=== PATIENT | male | born 1955 | race Caucasian/White ===

== ENCOUNTER 2020-10-07 13:25 | Day surgery (SDC) | payer OTHER, SELFPAY ==
[2020-10-07] MEDS ORDERED: AMLODIPINE BESY10 MG PO (15:12)
[2020-10-07] MEDS ORDERED: BETA.05TO TOP (15:12)
[2020-10-07] MEDS ORDERED: LISI20 PO (15:13)
[2020-10-07] MEDS ORDERED: PANTOPRAZOLE SO40 M2 PO (15:13)
[2020-10-07] MEDS ORDERED: FUROSEMIDE20 MG PO (15:13)
[2020-10-07] MEDS ORDERED: FOLI1 PO (15:23)
[2020-10-07] MEDS ORDERED: CYAN500 PO (15:27)
[2020-10-07] MEDS ORDERED: C COMPLEX1000 M1 PO (15:27)
[2020-10-07] MEDS ORDERED: METF500C PO (15:28)
[2020-10-07] MEDS ORDERED: ALLEGRA ALLERG180 MG PO (15:28)
[2020-10-07] MEDS ORDERED: MULTI-VITAMIN1 EAC2 PO (15:28)
--- NOTE | 2020-10-07 17:09 | NUR ---
PT ASKING WHEN HE NEEDS HIS BLOOD REDRAWN AND WHEN HE NEEDS A FOLLOW UP VISIT WITH Jessy CHRISTINE NP. SPOKE WITH STAFF AT Jessy CHRISTINE OFFICE. PT WILL HAVE HIS BLOOD REDRAWN ON Saturday10/10/20 AND WILL SEE Jessy CHRISTINE NP ON THURSDAY 10/12 AT 1000. STAFF AT YESY'S OFFICE WILL SEND LAB REQUISITION INTO THE LAB FOR PT. UPDATED PT AND HIS WITH LAB DRAWN AND FOLLOW UP APPOINTMENT DATES AND TIME.
[2020-10-25] MEDS ORDERED: Vitamin B-150 MG PO (15:01)
== END 2020-10-07 17:20 | disposition home or self-care (01) ==
LOC: ATC 13:25
DX: D69.49 Other primary thrombocytopenia (principal); I10 Essential (primary) hypertension; K21.9 Gastro-esophageal reflux disease without esophagitis; Z87.891 Personal history of nicotine dependence
CPT/HCPCS: 36430; 86900; 86901; J7050; P9035

== ENCOUNTER 2020-10-28 06:01 | Day surgery (SDC) | payer OTHER, SELFPAY ==
[2020-10-27 11:04] LABS: Hematocrit 40.4 % (37.0-53.0); Hemoglobin 12.2 g/dL (13.5-17.5); Mean Corpuscular HGB 23.5 pg (26.0-34.0); Mean Corpuscular HGB Conc 30.2 g/dL (31.5-36.5); Mean Corpuscular Volume 78 fL (80-100); RDW Coefficient Variation 24.4 % (11.7-14.2); RDW Standard Deviation 66.9 fL (35.1-46.3); Red Blood Cell Count 5.19 M/mm3 (4.30-5.90); White Blood Cell Count 12.88 K/mm3 (4.00-11.30)
[2020-10-27 11:12] LABS: International Normalized Ratio 0.93
[2020-10-27 11:14] LABS: Platelet Count 16 K/mm3 (150-400)
[2020-10-27 11:57] LABS: BASOPHILS PERCENT MAN 0 % (0-2); EOSINOPHILS ABSOLUTE MAN 0.51 K/mm3 (0.00-0.68); EOSINOPHILS PERCENT MAN 4 % (0-6); LYMPHOCYTES ABSOLUTE MAN 2.57 K/mm3 (0.84-5.20); LYMPHOCYTES PERCENT MAN 20 % (21-46); METAMYELOCYTE ABSOLUTE MAN 0.12 K/mm3 (0.00-0.00); METAMYELOCYTE PERCENT MAN 1 % (0-0); MONOCYTES ABSOLUTE MAN 1.41 K/mm3 (0.16-1.47); MONOCYTES PERCENT MAN 11 % (4-13); MYELOCYTE ABSOLUTE MAN 0.12 K/mm3 (0.00-0.00); MYELOCYTE PERCENT MAN 1 % (0-0); NEUTROPHILS ABSOLUTE MAN 8.11 K/mm3 (1.96-9.15); SEG NEUTROPHILS PERCENT MAN 63 % (41-73); TOTAL CELLS COUNTED 100
[~2020-10-28] VITALS: Ht 172.7 cm; Wt 97.4 kg
[~2020-10-28 06:01] MED LIST: ALLEGRA ALLERG180 MG PO; AMLODIPINE BESY10 MG PO; BETA.05TO TOP; C COMPLEX1000 M1 PO; CYAN500 PO; FOLI1 PO; FUROSEMIDE20 MG PO; LISI20 PO; METF500C PO; MULTI-VITAMIN1 EAC2 PO; PANTOPRAZOLE SO40 M2 PO; Vitamin B-150 MG PO
--- NOTE | 2020-10-28 07:57 | NUR ---
10/28/20 0757 Elisha Wilson History, Chart, Medications and Allergies reviewed before start of procedure.Patient confirms NPO status and agrees with scheduled surgery.3-LEAD EKG REVIEWED WITH PHYSICIAN PRIOR TO START OF PROCEDURE.MONITOR INTACT WITH CONTINUOUS PULSE OXIMETRY AND INTERMITTENT BP.O2 VIA N/C INTACT THROUGHOUT SEDATION/PROCEDURE. PLATELETS TRANSFUSING PER DR. POWER ORDERS. See Anesthesia record
--- NOTE | 2020-10-28 09:27 | NUR ---
PT RETURN TO STEPDOWN. LETHARGIC BUT WAKES TO VERBAL STIMULI. NO C/O PAIN AT THIS TIME.
--- NOTE | 2020-10-28 09:58 | NUR ---
PT AWAKE, ALERT, SIPPING ON PO FLUIDS. REVIEWED DC INSTRUCTIONS WITH PATIENT WHO VERBALIZES UNDERSTANDING OF ALL INSTRUCTIONS GIVEN. IV DC TIP INTACT.
--- NOTE | 2020-10-28 10:08 | NUR ---
SECOND IV DC TIP INTACT. PT DRESSED SELF AND DC HOME VIA WC WITH TO DRIVE HIM.
== END 2020-10-28 10:05 | disposition home or self-care (01) ==
LOC: ORSCMMR 06:01 → ORD 07:30 → ORSCMMR 07:30
PROVIDERS: Surgery
PROC: 0DB78ZX Excision of Stomach, Pylorus, Via Natural or Artificial Opening Endoscopic, Diagnostic (ICD-10-PCS; principal; 2020-10-28 07:30)
PROC: 0DBL8ZX Excision of Transverse Colon, Via Natural or Artificial Opening Endoscopic, Diagnostic (ICD-10-PCS; principal; 2020-10-28 07:30)
PROC: 0DBP8ZX Excision of Rectum, Via Natural or Artificial Opening Endoscopic, Diagnostic (ICD-10-PCS; principal; 2020-10-28 07:30)
DX: D50.0 Iron deficiency anemia secondary to blood loss (chronic) (principal); K92.1 Melena; K21.9 Gastro-esophageal reflux disease without esophagitis; K62.1 Rectal polyp; D12.8 Benign neoplasm of rectum; K29.70 Gastritis, unspecified, without bleeding; K44.9 Diaphragmatic hernia without obstruction or gangrene; K64.4 Residual hemorrhoidal skin tags; D69.6 Thrombocytopenia, unspecified; I10 Essential (primary) hypertension; Z01.812 Encounter for preprocedural laboratory examination; E11.9 Type 2 diabetes mellitus without complications; Z79.899 Other long term (current) drug therapy; Z79.84 Long term (current) use of oral hypoglycemic drugs; Z87.891 Personal history of nicotine dependence
CPT/HCPCS: 36415; 36430; 82947; 85007; 85027; 85610; 86850; 86900; 86901; 87081; 88305; 88341; 88342; J2704; J7120; P9035; P9053

== ENCOUNTER 2020-11-09 15:48 | Inpatient (IN) | payer OTHER ==
[~2020-11-09] VITALS: Ht 172.7 cm; Wt 94.5 kg
[2020-11-09 16:22] LABS: BASOPHILS ABSOLUTE AUTO 0.05 K/mm3 (0.00-0.23); BASOPHILS PERCENT AUTO 0 % (0-2); EOSINOPHILS ABSOLUTE AUTO 0.01 K/mm3 (0.00-0.68); EOSINOPHILS PERCENT AUTO 0 % (0-6); Hematocrit 42.3 % (37.0-53.0); Hemoglobin 13.8 g/dL (13.5-17.5); IMMATURE GRAN ABSOLUTE AUTO 0.37 K/mm3 (0.00-0.10); IMMATURE GRAN PERCENT AUTO 3 % (0-1); LYMPHOCYTES ABSOLUTE AUTO 1.43 K/mm3 (0.84-5.20); LYMPHOCYTES PERCENT AUTO 10 % (21-46); MONOCYTES ABSOLUTE AUTO 1.69 K/mm3 (0.16-1.47); MONOCYTES PERCENT AUTO 12 % (4-13); Mean Corpuscular HGB Conc 32.6 g/dL (31.5-36.5); Mean Corpuscular Volume 77 fL (80-100); NEUTROPHILS ABSOLUTE AUTO 10.54 K/mm3 (1.96-9.15); NEUTROPHILS PERCENT AUTO 75 % (41-73); RDW Coefficient Variation 23.8 % (11.7-14.2); RDW Standard Deviation 63.8 fL (35.1-46.3); Red Blood Cell Count 5.52 M/mm3 (4.30-5.90); White Blood Cell Count 14.09 K/mm3 (4.00-11.30)
[2020-11-09 16:37] LABS: International Normalized Ratio 0.93
[2020-11-09 16:39] LABS: Platelet Count 5 K/mm3 (150-400)
[2020-11-09 16:42] LABS: Alanine Aminotransfer (ALT/SGP 43 U/L (12-78); Albumin/Globulin Ratio 1.2 (0.8-1.8); Alk Phos 66 U/L (50-136); Anion Gap 9 mmol/L (6-16); Aspartate Aminotrans (AST/SGOT 16 U/L (12-37); Bilirubin, Total 0.4 mg/dL (0.1-1.0); Blood Urea Nitrogen 50 mg/dL (8-24); Bun/Creatinine Ratio 39.1 (12.0-20.0); CO2, Blood 24 mmol/L (21-32); Calcium, Blood 8.8 mg/dL (8.5-10.1); Chloride, Blood 98 mmol/L (98-108); Creatinine, Blood 1.28 mg/dL (0.60-1.20); Globulin, Blood 3.3 g/dL (2.2-4.0); Glomerular Filtration Rate >60 (60-); Glucose, Blood 453 mg/dL (70-99); Potassium, Blood 4.4 mmol/L (3.5-5.5); Sodium, Blood 131 mmol/L (136-145); Total Protein, Blood 7.3 g/dL (6.4-8.2)
[2020-11-09 21:05] LABS: Influenza A, PCR NEGATIVE (NEGATIVE); Influenza B, PCR NEGATIVE (NEGATIVE); Resp Syncytial Virus, PCR NEGATIVE (NEGATIVE); SARS-Cov-2 (COVID-19) PCR, MMC NEGATIVE (NEGATIVE)
--- NOTE | 2020-11-10 02:02 | NUR ---
ADMIT NOTE *LATE ENTRY* HANDOFF RECEIVED FROM ER NURSE JAMA. PT TRANSFERED TO FLOOR. PERSONAL POSSESSIONS WITH PT. PT ORIENTED TO UNIT, CALL BUTTON WITHIN REACH. I PLACED A CALL TO PHARMACY RE: SEMGLEE ADMIN, AND FOR IGG INFUSION/EXACT INSTRUCTIONS. IGG INFUSED ORDERED. INSULIN ADMINISTERED PER INSTRUCTIONS. PLACED NOTIFICATION CALL TO CONSULT ANSWERING SERVICE.
--- NOTE | 2020-11-10 03:59 | NUR ---
SHIFT SUMMARY ADMITTED FOR ITP EXACERBATION/HYPERGLYCEMIA FROM ER THIS SHIFT. FULL CODE. IGG INFUSION COMPLETED. CONSULT DR GUAJARDO ANSWERING SERVICE IS NOTIFIED. BLOOD SUGARS Q6 HRS. PT IS A&O X4, INDEPENDENT IN ROOM. CALL BUTTON WITHIN REACH. WILL MONITOR LABS.
--- NOTE | 2020-11-10 04:56 | NUR ---
PT CONGESTED PT STATES HE FEELS SOMEWHAT CONGESTED NOW. HE IS COUGHING UP SOME PHLEGM. I DID INFUSE A SIGNIFICANT AMOUNT OF FLUID WITH THE IGG INFUSION. HE IS NOT IN DISTRESS AT THIS TIME. HE IS CURRENTLY SITTING UP IN HIS BED, EATING A SANDWICH AND TALKING WITH STAFF. HE TAKES LASIX AT HOME. I WILL PASS THIS ON TO THE DAY RN TO DISCUSS WITH THE HOSPITALIST. RT HAS EVALUATED HIM THIS SHIFT WELL
--- NOTE | 2020-11-10 06:36 | NUR ---
CALLED HOSPITALIST INFORMED DR THAT I HAD INFUSED 1000 ML OF IGG AND NOW PT IS SOMEWHAT CONGESTED. HOSPITALIST ORDERED 40 MG FUROSEMIDE IV NOW. I ADMINISTERED THIS AT 0637 HRS. WILL REPORT THIS TO DAY RN
[2020-11-10 07:53] LABS: BASOPHILS ABSOLUTE AUTO 0.05 K/mm3 (0.00-0.23); BASOPHILS PERCENT AUTO 1 % (0-2); EOSINOPHILS ABSOLUTE AUTO 0.14 K/mm3 (0.00-0.68); EOSINOPHILS PERCENT AUTO 2 % (0-6); Hematocrit 40.2 % (37.0-53.0); IMMATURE GRAN ABSOLUTE AUTO 0.21 K/mm3 (0.00-0.10); IMMATURE GRAN PERCENT AUTO 2 % (0-1); LYMPHOCYTES ABSOLUTE AUTO 1.01 K/mm3 (0.84-5.20); LYMPHOCYTES PERCENT AUTO 11 % (21-46); MONOCYTES ABSOLUTE AUTO 0.75 K/mm3 (0.16-1.47); MONOCYTES PERCENT AUTO 8 % (4-13); Mean Corpuscular HGB 24.8 pg (26.0-34.0); Mean Corpuscular HGB Conc 32.3 g/dL (31.5-36.5); Mean Corpuscular Volume 77 fL (80-100); NEUTROPHILS ABSOLUTE AUTO 7.44 K/mm3 (1.96-9.15); NEUTROPHILS PERCENT AUTO 78 % (41-73); RDW Standard Deviation 64.2 fL (35.1-46.3); Red Blood Cell Count 5.25 M/mm3 (4.30-5.90)
[2020-11-10 08:01] LABS: Platelet Count 16 K/mm3 (150-400)
[2020-11-10 08:04] LABS: Percent Saturation 24.5 % (20.0-50.0)
--- NOTE | 2020-11-10 12:12 | NUR ---
echocardiogram is complete
--- NOTE | 2020-11-10 12:45 | NUR ---
Advnace Directive education attempted/Spiritual care visit conducted. Upon receiving an admit referral for Advance Directive education, I visit patient. Patient informs me that he has no interest in the subject. Patient shares about his medical condition and his fear that no medical answer can be found to help manage his platlet and white blood cell count. 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 He talks about his and their plans for the future. He also explains about his many near experiences and how he believes God will get him through this medical issue as well. I reinforce helpful attitudes , normalize his experience and provide therapeutic listening and anxiety containment. Patient responds well and shows signs of reduced stress. I will continue to remain available to patient and family.
--- NOTE | 2020-11-10 18:40 | NUR ---
SHIFT SUMMARY PT RECEIVED IGIV THIS AFTERNOON AND TOLERATED IT WELL. 2O MG IV LASIX ADMINISTERED AFTER INFUSION FINISHED. PT HAS HAD A GOOD APPETITE. BLOOD SUGARS ELEVATED IN 300'S. NO COMPLAINTS OF PAIN OR NAUSEA THIS SHIFT. NO ACUTE CHANGES. CALL LIGHT IN REACH. WILL CONTINUE TO MONITOR AND REPORT TO ONCOMING RN.
--- NOTE | 2020-11-11 04:17 | NUR ---
SHIFT SUMMARY ADMITTED FOR ITP EXACERBATION/HYPERGLYCEMIA. FULL CODE. PLAN IS FOR POSSIBLE DC TODAY W/OUTPT ANTIBODY THERAPY. DR GUAJARDO IS CONSULT. PLATELETS HAVE IMPROVED, AWAITING THIS MORNING'S LABS. PT IS A&O X4, INDEPENDENT IN ROOM. RECENT HX OF TREATMENT W/STEROIDS, BLOOD GLUCOSE IS SLOWLY COMING DOWN W/INSULIN MANAGEMENT. NO NEW CONCERNS THIS SHIFT
[2020-11-11 04:52] LABS: Hematocrit 43.3 % (37.0-53.0); Mean Corpuscular HGB 25.2 pg (26.0-34.0); Mean Corpuscular HGB Conc 32.3 g/dL (31.5-36.5); Mean Corpuscular Volume 78 fL (80-100); Platelet Count 77 K/mm3 (150-400); RDW Coefficient Variation 24.2 % (11.7-14.2); RDW Standard Deviation 65.7 fL (35.1-46.3); Red Blood Cell Count 5.55 M/mm3 (4.30-5.90)
--- NOTE | 2020-11-11 05:03 | NUR ---
PLATELETS LAB PLATELET COUNT HAS RESPONDED TO IGG INFUSIONS. MORNING LABS SHOW PLATELETS AT 77 THIS MORNING
[2020-11-11 05:19] LABS: Anion Gap 6 mmol/L (6-16); Blood Urea Nitrogen 39 mg/dL (8-24); Bun/Creatinine Ratio 33.6 (12.0-20.0); CO2, Blood 25 mmol/L (21-32); Calcium, Blood 8.6 mg/dL (8.5-10.1); Chloride, Blood 101 mmol/L (98-108); Creatinine, Blood 1.16 mg/dL (0.60-1.20); Glomerular Filtration Rate >60 (60-); Glucose, Blood 353 mg/dL (70-99); Potassium, Blood 4.2 mmol/L (3.5-5.5); Sodium, Blood 132 mmol/L (136-145)
[2020-11-11 05:23] LABS: BAND PERCENT MAN 4 % (0-8); BASOPHILS PERCENT MAN 0 % (0-2); EOSINOPHILS ABSOLUTE MAN 0.81 K/mm3 (0.00-0.68); EOSINOPHILS PERCENT MAN 12 % (0-6); LYMPHOCYTES ABSOLUTE MAN 1.02 K/mm3 (0.84-5.20); LYMPHOCYTES PERCENT MAN 15 % (21-46); METAMYELOCYTE PERCENT MAN 3 % (0-0); MONOCYTES ABSOLUTE MAN 0.61 K/mm3 (0.16-1.47); MONOCYTES PERCENT MAN 9 % (4-13); NEUTROPHILS ABSOLUTE MAN 4.14 K/mm3 (1.96-9.15); SEG NEUTROPHILS PERCENT MAN 57 % (41-73); TOTAL CELLS COUNTED 100
[2020-11-11] MEDS ORDERED: BASAGLAR K100 UNIT/8 SC (12:07)
--- NOTE | 2020-11-11 14:01 | NUR ---
PT DISCHARGE AOX4 AT 1315. PT HAD ALL PAPERWORK REVIEWED AND APOINTMENT FOLLOW UP WERE SCHEDULED. PT COLLECTED ALL PERSONAL BELONINGS AND WAS ESCORTED OUT VIA WHEEL CHAIR. TO TRANSPORT HOME. PT ESCORTED TO N ENTRANCE BY THIS AIRPLANE ELECTRICAL REPAIRER. NO DISTRESS NOTED.
== END 2020-11-11 13:01 | disposition home or self-care (01) | DRG 813 ==
LOC: ER 15:48 → MEDS 19:58 → ENPENDDIS 11-11 11:35 → MEDS 11-11 13:01
PROVIDERS: Emergency Medicine; Internal Medicine Hematology & Oncology; Physician Assistant; ADMIT Internal Medicine
DX: D69.3 Immune thrombocytopenic purpura (principal); I10 Essential (primary) hypertension; K21.9 Gastro-esophageal reflux disease without esophagitis; D63.8 Anemia in other chronic diseases classified elsewhere; D50.9 Iron deficiency anemia, unspecified; E11.65 Type 2 diabetes mellitus with hyperglycemia; Z23 Encounter for immunization; Z79.84 Long term (current) use of oral hypoglycemic drugs; Z87.891 Personal history of nicotine dependence; Z90.49 Acquired absence of other specified parts of digestive tract; Z90.89 Acquired absence of other organs; Z79.899 Other long term (current) drug therapy; Z86.010 Personal history of colon polyps
CPT/HCPCS: 0241U; 36415; 70450; 71046; 80048; 80053; 82728; 82947; 83036; 83540; 83550; 85025; 85610; 86850; 86900; 86901; 93306; 94640; 94760; 96374; 99285-25; A9270; J1568; J1815; J1940; J7120

== ENCOUNTER 2021-01-06 15:04 | Day surgery (SDC) | payer OTHER ==
[~2021-01-06 15:04] MED LIST changes: +BASAGLAR K100 UNIT/8 SC
== END 2021-01-06 16:43 | disposition home or self-care (01) ==
LOC: ATC 15:04
DX: D69.6 Thrombocytopenia, unspecified (principal)
CPT/HCPCS: 36430; 86900; 86901; J7050; P9035

== ENCOUNTER 2021-02-06 12:23 | Day surgery (SDC) | payer OTHER | END 2021-02-06 22:58 | disposition home or self-care (01) | LOC: ATC 12:23 | DX: D69.6 Thrombocytopenia, unspecified (principal); D50.0 Iron deficiency anemia secondary to blood loss (chronic) | CPT/HCPCS: 36430; 86900; 86901; J7050; P9035 ==

== ENCOUNTER 2021-03-06 17:01 | Emergency (ER) | payer OTHER ==
[~2021-03-06] VITALS: Ht 175.3 cm; Wt 100.2 kg
[2021-03-06 17:28] LABS: BASOPHILS ABSOLUTE AUTO 0.09 K/mm3 (0.00-0.23); BASOPHILS PERCENT AUTO 1 % (0-2); EOSINOPHILS ABSOLUTE AUTO 0.41 K/mm3 (0.00-0.68); EOSINOPHILS PERCENT AUTO 4 % (0-6); Hematocrit 38.9 % (37.0-53.0); IMMATURE GRAN ABSOLUTE AUTO 0.06 K/mm3 (0.00-0.10); IMMATURE GRAN PERCENT AUTO 1 % (0-1); LYMPHOCYTES ABSOLUTE AUTO 0.94 K/mm3 (0.84-5.20); LYMPHOCYTES PERCENT AUTO 10 % (21-46); MONOCYTES ABSOLUTE AUTO 0.86 K/mm3 (0.16-1.47); MONOCYTES PERCENT AUTO 9 % (4-13); Mean Corpuscular HGB 25.1 pg (26.0-34.0); Mean Corpuscular HGB Conc 30.8 g/dL (31.5-36.5); Mean Corpuscular Volume 81 fL (80-100); NEUTROPHILS ABSOLUTE AUTO 7.51 K/mm3 (1.96-9.15); NEUTROPHILS PERCENT AUTO 76 % (41-73); RDW Coefficient Variation 15.8 % (11.7-14.2); RDW Standard Deviation 46.8 fL (35.1-46.3); Red Blood Cell Count 4.78 M/mm3 (4.30-5.90); White Blood Cell Count 9.87 K/mm3 (4.00-11.30)
[2021-03-06 17:31] LABS: Platelet Count 13 K/mm3 (150-400)
[2021-03-06 17:56] LABS: Albumin/Globulin Ratio 0.9 (0.8-1.8); Bilirubin, Total 0.4 mg/dL (0.1-1.0); Bun/Creatinine Ratio 17.2 (12.0-20.0); Calcium, Blood 8.6 mg/dL (8.5-10.1); Creatinine, Blood 1.63 mg/dL (0.60-1.20); Globulin, Blood 4.4 g/dL (2.2-4.0); Potassium, Blood 4.9 mmol/L (3.5-5.5); Total Protein, Blood 8.4 g/dL (6.4-8.2)
[2021-03-06] MEDS ORDERED: Prednisone10 MG PO (19:27)
[2021-03-06] MEDS ORDERED: PROMACTA75 MG PO (19:27)
[2021-03-06 20:50] LABS: BASOPHILS ABSOLUTE AUTO 0.13 K/mm3 (0.00-0.23); BASOPHILS PERCENT AUTO 1 % (0-2); EOSINOPHILS ABSOLUTE AUTO 0.77 K/mm3 (0.00-0.68); EOSINOPHILS PERCENT AUTO 8 % (0-6); Hematocrit 38.7 % (37.0-53.0); IMMATURE GRAN ABSOLUTE AUTO 0.08 K/mm3 (0.00-0.10); IMMATURE GRAN PERCENT AUTO 1 % (0-1); LYMPHOCYTES ABSOLUTE AUTO 1.11 K/mm3 (0.84-5.20); LYMPHOCYTES PERCENT AUTO 12 % (21-46); MONOCYTES ABSOLUTE AUTO 1.23 K/mm3 (0.16-1.47); MONOCYTES PERCENT AUTO 13 % (4-13); Mean Corpuscular Volume 81 fL (80-100); Mean Platelet Volume 10.4 fL (9.1-12.4); NEUTROPHILS ABSOLUTE AUTO 6.17 K/mm3 (1.96-9.15); NEUTROPHILS PERCENT AUTO 65 % (41-73); Platelet Count 56 K/mm3 (150-400); RDW Coefficient Variation 15.8 % (11.7-14.2); RDW Standard Deviation 45.8 fL (35.1-46.3); White Blood Cell Count 9.49 K/mm3 (4.00-11.30)
== END 2021-03-06 21:24 | disposition home or self-care (01) ==
LOC: ER 17:01
PROVIDERS: Emergency Medicine; Physician Assistant
DX: D69.6 Thrombocytopenia, unspecified (principal); E11.9 Type 2 diabetes mellitus without complications; I10 Essential (primary) hypertension; Z79.899 Other long term (current) drug therapy; Z87.891 Personal history of nicotine dependence
CPT/HCPCS: 36415; 36430; 80053; 85025; 86850; 86900; 86901; 96374; 99283-25; J1200; P9053

== ENCOUNTER 2021-03-28 10:30 | Day surgery (SDC) | payer OTHER ==
[~2021-03-28 10:30] MED LIST changes: +PROMACTA75 MG PO; +Prednisone10 MG PO
[2021-03-28 12:57] LABS: BASOPHILS ABSOLUTE AUTO 0.17 K/mm3 (0.00-0.23); BASOPHILS PERCENT AUTO 2 % (0-2); EOSINOPHILS ABSOLUTE AUTO 0.45 K/mm3 (0.00-0.68); EOSINOPHILS PERCENT AUTO 4 % (0-6); Hematocrit 41.6 % (37.0-53.0); Hemoglobin 12.8 g/dL (13.5-17.5); IMMATURE GRAN ABSOLUTE AUTO 0.44 K/mm3 (0.00-0.10); IMMATURE GRAN PERCENT AUTO 4 % (0-1); LYMPHOCYTES ABSOLUTE AUTO 1.64 K/mm3 (0.84-5.20); LYMPHOCYTES PERCENT AUTO 14 % (21-46); MONOCYTES ABSOLUTE AUTO 1.23 K/mm3 (0.16-1.47); MONOCYTES PERCENT AUTO 11 % (4-13); Mean Corpuscular HGB 24.4 pg (26.0-34.0); Mean Corpuscular HGB Conc 30.8 g/dL (31.5-36.5); Mean Corpuscular Volume 79 fL (80-100); NEUTROPHILS ABSOLUTE AUTO 7.79 K/mm3 (1.96-9.15); NEUTROPHILS PERCENT AUTO 66 % (41-73); RDW Coefficient Variation 16.4 % (11.7-14.2); RDW Standard Deviation 46.9 fL (35.1-46.3); Red Blood Cell Count 5.25 M/mm3 (4.30-5.90); White Blood Cell Count 11.72 K/mm3 (4.00-11.30)
[2021-03-28 13:06] LABS: Platelet Count 1 K/mm3 (150-400)
== END 2021-03-28 15:33 | disposition home or self-care (01) ==
LOC: ATC 10:30 → EDSTATUS 03-27 16:30 → LAB FUT 03-27 16:30
PROVIDERS: Internal Medicine Hematology & Oncology
DX: D69.3 Immune thrombocytopenic purpura (principal); K21.9 Gastro-esophageal reflux disease without esophagitis; I10 Essential (primary) hypertension; Z87.891 Personal history of nicotine dependence
CPT/HCPCS: 36415; 36430; 85025; 86900; 86901; J7050; P9035

== ENCOUNTER 2021-04-04 12:02 | Day surgery (SDC) | payer MEDICARE, OTHER ==
[2021-04-03 13:05] LABS: BASOPHILS ABSOLUTE AUTO 0.08 K/mm3 (0.00-0.23); BASOPHILS PERCENT AUTO 1 % (0-2); EOSINOPHILS PERCENT AUTO 9 % (0-6); Hematocrit 42.7 % (37.0-53.0); Hemoglobin 13.3 g/dL (13.5-17.5); IMMATURE GRAN ABSOLUTE AUTO 0.06 K/mm3 (0.00-0.10); IMMATURE GRAN PERCENT AUTO 1 % (0-1); LYMPHOCYTES ABSOLUTE AUTO 0.76 K/mm3 (0.84-5.20); LYMPHOCYTES PERCENT AUTO 11 % (21-46); MONOCYTES ABSOLUTE AUTO 1.13 K/mm3 (0.16-1.47); MONOCYTES PERCENT AUTO 17 % (4-13); Mean Corpuscular HGB 24.5 pg (26.0-34.0); Mean Corpuscular HGB Conc 31.1 g/dL (31.5-36.5); Mean Corpuscular Volume 79 fL (80-100); NEUTROPHILS ABSOLUTE AUTO 4.21 K/mm3 (1.96-9.15); NEUTROPHILS PERCENT AUTO 62 % (41-73); RDW Coefficient Variation 17.6 % (11.7-14.2); RDW Standard Deviation 49.3 fL (35.1-46.3); Red Blood Cell Count 5.43 M/mm3 (4.30-5.90); White Blood Cell Count 6.84 K/mm3 (4.00-11.30)
[2021-04-03 13:24] LABS: Platelet Count 3 K/mm3 (150-400)
--- NOTE | 2021-04-04 18:12 | NUR ---
PATIENT BP 84/56 POST TRANSFUSION. PATIENT REPORTS HE HAS "NOT BEEN FEELING WELL" AND IS "VERY WEAK" FOR THE LAST WEEK AT LEAST. LEFT PATIENT IV AND SENT PATIENT STRAIGHT TO ED
== END 2021-04-04 18:05 | disposition home or self-care (01) ==
LOC: ATC 12:02
PROVIDERS: Internal Medicine Hematology & Oncology
DX: D69.49 Other primary thrombocytopenia (principal); I10 Essential (primary) hypertension; E11.9 Type 2 diabetes mellitus without complications; K21.9 Gastro-esophageal reflux disease without esophagitis; T80.92XA Unspecified transfusion reaction, initial encounter; B34.9 Viral infection, unspecified; Z87.891 Personal history of nicotine dependence; Z86.19 Personal history of other infectious and parasitic diseases
CPT/HCPCS: 36415; 36430; 71046; 80053; 81001; 83880; 84443; 84484; 85025; 85610; 85730; 86850; 86900; 86901; 87086; 93005; 93010; 99284-25; J7050; P9035

== ENCOUNTER → 2021-04-18 | Outpatient (CLI) | payer MEDICARE, OTHER | END | disposition home or self-care (01) | LOC: LAB 08:55 → LAB SHORT 08:55 | DX: L30.8 Other specified dermatitis (principal) | CPT/HCPCS: 88305; 88312 ==

== ENCOUNTER 2021-07-04 10:26 | Day surgery (SDC) | payer MEDICARE, OTHER ==
[2021-07-04] MEDS ORDERED: DOXE25 PO (14:24)
[2021-07-04] MEDS ORDERED: HYDHCL25 (14:26)
== END 2021-07-04 15:57 | disposition home or self-care (01) ==
LOC: ATC 10:26
DX: D69.3 Immune thrombocytopenic purpura (principal); D50.9 Iron deficiency anemia, unspecified; I10 Essential (primary) hypertension; K21.9 Gastro-esophageal reflux disease without esophagitis; L23.9 Allergic contact dermatitis, unspecified cause; E11.9 Type 2 diabetes mellitus without complications; L27.0 Generalized skin eruption due to drugs and medicaments taken internally; T50.905A Adverse effect of unspecified drugs, medicaments and biological substances, initial encounter; Z79.899 Other long term (current) drug therapy; Z79.52 Long term (current) use of systemic steroids; Z79.84 Long term (current) use of oral hypoglycemic drugs; Z79.4 Long term (current) use of insulin
CPT/HCPCS: 36430; 86900; 86901; J7050; P9053

== ENCOUNTER 2021-07-19 10:46 | Inpatient (IN) | payer MEDICARE, OTHER ==
[~2021-07-19] VITALS: Ht 172.7 cm; Wt 90.3 kg
[~2021-07-19 10:46] MED LIST changes: +DOXE25 PO; +HYDHCL25
[2021-07-19] MEDS ORDERED: LOSA25 PO (11:29)
[2021-07-19] MEDS ORDERED: METTREX2.5 PO (11:29)
[2021-07-19] MEDS ORDERED: TORSE20 PO (11:30)
[2021-07-19] MEDS ORDERED: NPLATE125 MCG (11:36)
[2021-07-19 11:38] LABS: Hematocrit 37.4 % (37.0-53.0); Hemoglobin 10.8 g/dL (13.5-17.5); Mean Corpuscular HGB 23.5 pg (26.0-34.0); Mean Corpuscular HGB Conc 28.9 g/dL (31.5-36.5); Mean Corpuscular Volume 81 fL (80-100); NRBC ABSOLUTE 0.02 K/mm3 (0.00-0.02); NRBC Auto 0.1 /100 WBC (0.0-0.2); Platelet Count 61 K/mm3 (150-400); RDW Coefficient Variation 20.9 % (11.7-14.2); RDW Standard Deviation 51.9 fL (35.1-46.3); White Blood Cell Count 27.85 K/mm3 (4.00-11.30)
[2021-07-19 11:40] LABS: Albumin/Globulin Ratio 0.5 (0.8-1.8); Bilirubin, Total 0.7 mg/dL (0.1-1.0); Bun/Creatinine Ratio 13.2 (12.0-20.0); Calcium, Blood 8.6 mg/dL (8.5-10.1); Creatinine, Blood 1.89 mg/dL (0.60-1.20); Globulin, Blood 6.4 g/dL (2.2-4.0); Potassium, Blood 3.8 mmol/L (3.5-5.5); Total Protein, Blood 9.4 g/dL (6.4-8.2)
[2021-07-19 12:09] LABS: BASOPHILS PERCENT MAN 1 % (0-2); EOSINOPHILS PERCENT MAN 11 % (0-6); LYMPHOCYTES PERCENT MAN 12 % (21-46); MONOCYTES PERCENT MAN 9 % (4-13); MYELOCYTE PERCENT MAN 1 % (0-0); SEG NEUTROPHILS PERCENT MAN 66 % (41-73); TOTAL CELLS COUNTED 100
[2021-07-19 12:17] LABS: IMMATURE GRAN ABSOLUTE AUTO 0.43 K/mm3 (0.00-0.10); IMMATURE GRAN PERCENT AUTO 2 % (0-1); LYMPHOCYTES PERCENT AUTO 12 % (21-46); MONOCYTES ABSOLUTE AUTO 3.05 K/mm3 (0.16-1.47); MONOCYTES PERCENT AUTO 11 % (4-13); NEUTROPHILS ABSOLUTE AUTO 17.52 K/mm3 (1.96-9.15); NEUTROPHILS PERCENT AUTO 63 % (41-73)
[2021-07-19 12:40] LABS: International Normalized Ratio 1.14; Prothrombin Time Results 11.9 Sec (9.7-11.5)
[2021-07-19 14:34] LABS: Adenovirus Not Detected (NOT DETECT); Bordetella pertussis Not Detected (NOT DETECT); Chlamydophila pneumoniae Not Detected (NOT DETECT); Coronavirus 229E Not Detected (NOT DETECT); Coronavirus HKU1 Not Detected (NOT DETECT); Coronavirus NL63 Not Detected (NOT DETECT); Coronavirus OC43 Not Detected (NOT DETECT); Human Metapneumovirus Not Detected (NOT DETECT); Human Rhinovirus/Enterovirus Not Detected (NOT DETECT); Influenza A/2009-H1 Not Detected (NOT DETECT); Influenza A/H1 Not Detected (NOT DETECT); Influenza A/H3 Not Detected (NOT DETECT); Influenza B Not Detected (NOT DETECT); Mycoplasma pneumoniae Not Detected (NOT DETECT); Parainfluenza Virus 1 Not Detected (NOT DETECT); Parainfluenza Virus 2 Not Detected (NOT DETECT); Parainfluenza Virus 3 Not Detected (NOT DETECT); Parainfluenza Virus 4 Not Detected (NOT DETECT); Respiratory Syncytial Virus Not Detected (NOT DETECT); SARS-Cov-2 (COVID-19), BioFire Not Detected (NOT DETECT)
[2021-07-19 16:19] LABS: Source, Urine Clean Catch
[2021-07-19 16:23] LABS: Appearance, Urine Clear (Clear); Blood, Urine 1+ (Neg); Color, Urine Amber (P-Yellow); Glucose Qualitative, Urine 3+ (Neg); Ketones, Urine Neg (Neg); Leukocyte Esterase, Urine 1+ (Neg); Nitrite, Urine Neg (Neg); Protein, Urine 3+ (Neg); Specific Gravity, Urine 1.025 (1.003-1.022); Urobilinogen, Urine NORM (Normal)
[2021-07-19 16:33] LABS: Bilirubin, Urine 1+ (Neg)
[2021-07-19 16:34] LABS: Mucus Mod (0-Heavy)
[2021-07-19 16:35] LABS: Bacteria Mod /hpf; Squamous Epithelial Cells Few /hpf (Few)
--- NOTE | 2021-07-19 19:02 | NUR ---
SHIFT SUMMARY PATIENT RESTING IN BED WATCHING TV WITH FAMILY PRESENT. PATIENT ADMITTED FROM ER. ADMISSION HISTORY AND ASSESSMENT COMPLETE. PATIENT ORIENTED TO ROOM AND CALL LIGHT. CALL LIGHT WITHIN REACH.
--- NOTE | 2021-07-20 03:03 | NUR ---
RESIN COATER SUMMARY PATIENT HAD A FAIR SHIFT. VITALS STABLE, NO COMPLAINTS LODGED BY PATIENT . WILL CONTINUE TO MONITOR HIM.
[2021-07-20 04:55] LABS: Hematocrit 29.9 % (37.0-53.0); Hemoglobin 8.8 g/dL (13.5-17.5); Mean Corpuscular HGB 23.8 pg (26.0-34.0); Mean Corpuscular HGB Conc 29.4 g/dL (31.5-36.5); Mean Corpuscular Volume 81 fL (80-100); RDW Coefficient Variation 20.1 % (11.7-14.2); RDW Standard Deviation 52.6 fL (35.1-46.3); White Blood Cell Count 20.07 K/mm3 (4.00-11.30)
[2021-07-20 05:03] LABS: Platelet Count 8 K/mm3 (150-400)
[2021-07-20 05:20] LABS: BAND PERCENT MAN 1 % (0-8); BASOPHILS PERCENT MAN 0 % (0-2); EOSINOPHILS ABSOLUTE MAN 4.41 K/mm3 (0.00-0.68); EOSINOPHILS PERCENT MAN 22 % (0-6); LYMPHOCYTES ABSOLUTE MAN 3.01 K/mm3 (0.84-5.20); LYMPHOCYTES PERCENT MAN 15 % (21-46); METAMYELOCYTE PERCENT MAN 1 % (0-0); MONOCYTES PERCENT MAN 8 % (4-13); NEUTROPHILS ABSOLUTE MAN 10.83 K/mm3 (1.96-9.15); SEG NEUTROPHILS PERCENT MAN 53 % (41-73); TOTAL CELLS COUNTED 100
[2021-07-20 05:45] LABS: Albumin, Blood 2.5 g/dL (3.4-5.0); Albumin/Globulin Ratio 0.6 (0.8-1.8); Bilirubin, Total 0.4 mg/dL (0.1-1.0); Bun/Creatinine Ratio 16.5 (12.0-20.0); Creatinine, Blood 1.33 mg/dL (0.60-1.20); Globulin, Blood 4.5 g/dL (2.2-4.0); Potassium, Blood 3.4 mmol/L (3.5-5.5)
--- NOTE | 2021-07-20 07:28 | NUR ---
RN GOT A CRITICAL PLATELLET COUNT OF 8. ON CACLL PHYSICAL CARLITOS WAS INFORMED AND HE ORDERED 1 UNIT OF PLATELET. SAME WAS ADMINISTERED. WILL CONTINUE TO MONITOR HIM
--- NOTE | 2021-07-20 10:00 | NUR ---
PT REPORTING RT EAR PAIN, CONCERNED THAT HE HAS AN EAR INFECTION. HE SAYS HE SPOKE WITH REGARDING, AND PER PT SAID NO EVIDENCE OF AN INFECTION. WILL MONITOR
--- NOTE | 2021-07-21 04:12 | NUR ---
BEAD WRAPPER SUMMARY PSTIENT HAD A FAIR SHIFT, VITALS STABLE. NO COMPLAINT LODGED. WILL CONTINUE TO MONITOR HIM.
[2021-07-21 05:51] LABS: Hematocrit 29.4 % (37.0-53.0); Hemoglobin 8.4 g/dL (13.5-17.5); Mean Corpuscular HGB 23.4 pg (26.0-34.0); Mean Corpuscular HGB Conc 28.6 g/dL (31.5-36.5); Mean Corpuscular Volume 82 fL (80-100); RDW Coefficient Variation 19.7 % (11.7-14.2); RDW Standard Deviation 53.4 fL (35.1-46.3); Red Blood Cell Count 3.59 M/mm3 (4.30-5.90); White Blood Cell Count 16.18 K/mm3 (4.00-11.30)
[2021-07-21 06:00] LABS: Platelet Count 10 K/mm3 (150-400)
[2021-07-21 06:49] LABS: Anion Gap 4 mmol/L (6-16); Blood Urea Nitrogen 13 mg/dL (8-24); Bun/Creatinine Ratio 12.6 (12.0-20.0); CO2, Blood 26 mmol/L (21-32); Calcium, Blood 8.1 mg/dL (8.5-10.1); Chloride, Blood 110 mmol/L (98-108); Creatinine, Blood 1.03 mg/dL (0.60-1.20); Glomerular Filtration Rate >60 (60-); Glucose, Blood 150 mg/dL (70-99); Potassium, Blood 3.8 mmol/L (3.5-5.5); Sodium, Blood 140 mmol/L (136-145)
[2021-07-21] MEDS ORDERED: CEFU500T30 PO (13:07)
[2021-07-21] MEDS ORDERED: VISBIOME 112.51 EACH PO (13:07)
[2021-07-21] MEDS ORDERED: HYDHCL25 PO (13:09)
--- NOTE | 2021-07-21 15:16 | NUR ---
DISCHARGE DISCHARGE INSTRUCTIONS, MEDICATION LIST AND FOLLOW UP APPOINMENT REVIEWED WITH PT AND HIS SPOUSE. QUESTSIONS/CONCERNS ANSWERED. BOTH VERBALLY INDICATED UNDERSTANDING OF ALL INSTRUCTIONS RECEIVED. ESCORTED OUT VIA W/C BY KRISTAN
== END 2021-07-21 14:54 | disposition home or self-care (01) | DRG 872 ==
LOC: ER 10:46 → MEDS 10:47
PROVIDERS: Internal Medicine; Nurse Practitioner Acute Care; Physician Assistant; ADMIT Internal Medicine
DX: A40.8 Other streptococcal sepsis (principal); N39.0 Urinary tract infection, site not specified; D69.3 Immune thrombocytopenic purpura; Z20.822 Contact with and (suspected) exposure to COVID-19; R65.20 Severe sepsis without septic shock; R21 Rash and other nonspecific skin eruption; I12.9 Hypertensive chronic kidney disease with stage 1 through stage 4 chronic kidney disease, or unspecified chronic kidney disease; K21.9 Gastro-esophageal reflux disease without esophagitis; E11.22 Type 2 diabetes mellitus with diabetic chronic kidney disease; Z28.21 Immunization not carried out because of patient refusal; N18.30 Chronic kidney disease, stage 3 unspecified; F12.90 Cannabis use, unspecified, uncomplicated; Z79.899 Other long term (current) drug therapy; Z87.891 Personal history of nicotine dependence; Z90.89 Acquired absence of other organs
CPT/HCPCS: 0202U; 36415; 36430; 71046; 80048; 80053; 81001; 82947; 83605; 85025; 85027; 85610; 85730; 86900; 86901; 87040; 87086; 87147; 93005; 93010; 94760; 96374; 99285-25; A9270; G0378; J0696; J7030; P9035

== ENCOUNTER 2021-07-30 12:43 | Inpatient (IN) | payer MEDICARE, OTHER ==
[~2021-07-30] VITALS: Ht 175.3 cm; Wt 86.0 kg
[~2021-07-30 12:43] MED LIST changes: +CEFU500T30 PO; +HYDHCL25 PO; +LOSA25 PO; +METTREX2.5 PO; +NPLATE125 MCG; +TORSE20 PO; +VISBIOME 112.51 EACH PO
[2021-07-30 13:39] LABS: BASOPHILS PERCENT AUTO 2 % (0-2); EOSINOPHILS ABSOLUTE AUTO 0.81 K/mm3 (0.00-0.68); EOSINOPHILS PERCENT AUTO 6 % (0-6); Hematocrit 23.5 % (37.0-53.0); Hemoglobin 6.9 g/dL (13.5-17.5); IMMATURE GRAN ABSOLUTE AUTO 0.33 K/mm3 (0.00-0.10); IMMATURE GRAN PERCENT AUTO 2 % (0-1); LYMPHOCYTES ABSOLUTE AUTO 1.33 K/mm3 (0.84-5.20); LYMPHOCYTES PERCENT AUTO 9 % (21-46); MONOCYTES ABSOLUTE AUTO 1.32 K/mm3 (0.16-1.47); MONOCYTES PERCENT AUTO 9 % (4-13); Mean Corpuscular HGB 22.9 pg (26.0-34.0); Mean Corpuscular HGB Conc 29.4 g/dL (31.5-36.5); Mean Corpuscular Volume 78 fL (80-100); NEUTROPHILS ABSOLUTE AUTO 10.27 K/mm3 (1.96-9.15); NEUTROPHILS PERCENT AUTO 72 % (41-73); RDW Coefficient Variation 18.3 % (11.7-14.2); RDW Standard Deviation 49.2 fL (35.1-46.3); Red Blood Cell Count 3.01 M/mm3 (4.30-5.90); White Blood Cell Count 14.36 K/mm3 (4.00-11.30)
[2021-07-30 13:45] LABS: Alanine Aminotransfer (ALT/SGP 22 U/L (12-78); Albumin, Blood 3.4 g/dL (3.4-5.0); Albumin/Globulin Ratio 0.7 (0.8-1.8); Alk Phos 72 U/L (50-136); Anion Gap 8 mmol/L (6-16); Aspartate Aminotrans (AST/SGOT 10 U/L (12-37); Bilirubin, Total 0.4 mg/dL (0.1-1.0); Blood Urea Nitrogen 27 mg/dL (8-24); Bun/Creatinine Ratio 26.7 (12.0-20.0); CO2, Blood 27 mmol/L (21-32); Calcium, Blood 8.7 mg/dL (8.5-10.1); Chloride, Blood 96 mmol/L (98-108); Creatinine, Blood 1.01 mg/dL (0.60-1.20); Globulin, Blood 4.6 g/dL (2.2-4.0); Glomerular Filtration Rate >60 (60-); Glucose, Blood 429 mg/dL (70-99); Platelet Count 1 K/mm3 (150-400); Potassium, Blood 3.8 mmol/L (3.5-5.5); Sodium, Blood 131 mmol/L (136-145)
[2021-07-30 13:51] LABS: Source, Urine Clean Catch
[2021-07-30 13:55] LABS: Appearance, Urine Clear (Clear); Bilirubin, Urine Neg (Neg); Blood, Urine Neg (Neg); Color, Urine Yellow (P-Yellow); Glucose Qualitative, Urine 4+ (Neg); Ketones, Urine Neg (Neg); Leukocyte Esterase, Urine Neg (Neg); Nitrite, Urine Neg (Neg); Protein, Urine 1+ (Neg); Urobilinogen, Urine NORM (Normal)
[2021-07-30 15:18] LABS: International Normalized Ratio 0.98; Prothrombin Time Results 10.3 Sec (9.7-11.5)
[2021-07-30 15:37] LABS: Influenza A, PCR NEGATIVE (NEGATIVE); Influenza B, PCR NEGATIVE (NEGATIVE); Resp Syncytial Virus, PCR NEGATIVE (NEGATIVE); SARS-Cov-2 (COVID-19) PCR, MMC NEGATIVE (NEGATIVE)
[2021-07-30 16:16] LABS: BASOPHILS ABSOLUTE AUTO 0.29 K/mm3 (0.00-0.23); BASOPHILS PERCENT AUTO 2 % (0-2); EOSINOPHILS ABSOLUTE AUTO 0.99 K/mm3 (0.00-0.68); EOSINOPHILS PERCENT AUTO 7 % (0-6); Hematocrit 22.2 % (37.0-53.0); Hemoglobin 6.4 g/dL (13.5-17.5); IMMATURE GRAN ABSOLUTE AUTO 0.31 K/mm3 (0.00-0.10); IMMATURE GRAN PERCENT AUTO 2 % (0-1); LYMPHOCYTES ABSOLUTE AUTO 1.46 K/mm3 (0.84-5.20); LYMPHOCYTES PERCENT AUTO 10 % (21-46); MONOCYTES ABSOLUTE AUTO 1.34 K/mm3 (0.16-1.47); MONOCYTES PERCENT AUTO 9 % (4-13); Mean Corpuscular HGB 22.8 pg (26.0-34.0); Mean Corpuscular HGB Conc 28.8 g/dL (31.5-36.5); Mean Corpuscular Volume 79 fL (80-100); NEUTROPHILS ABSOLUTE AUTO 10.37 K/mm3 (1.96-9.15); NEUTROPHILS PERCENT AUTO 70 % (41-73); RDW Coefficient Variation 18.3 % (11.7-14.2); RDW Standard Deviation 50.2 fL (35.1-46.3); Red Blood Cell Count 2.81 M/mm3 (4.30-5.90); White Blood Cell Count 14.76 K/mm3 (4.00-11.30)
[2021-07-30 16:18] LABS: Mean Platelet Volume 12.2 fL (9.1-12.4)
[2021-07-30 16:19] LABS: Platelet Count 34 K/mm3 (150-400)
--- NOTE | 2021-07-30 17:57 | NUR ---
ADMIT NOTE RECEIVED REPROT FROM STAR RN IN ED; PT TO ROOM AT APPROX 1520. PT ORIENTED TO ROOM. EDUCATED ON FALL RISK CALL LIGHT. PT REPORTS DARK, SOFT BM THIS AM AT APROX 1000 WITH BLOOD NOTED. PT REPORTS FEELING DIZZINESS WHEN STANDING. PT A&O; CALM AND COOPERATIVE WITH CARE. PT REPORTS ITCHINESS T/O; MEDCIATED PER EMAR. PT RECEIVING PLATLETS WHEN COMING FROM ER; COMPLETED IN ROOM AND STARTED PRBC, APPEARS TO BE TOLERATING WELL. CALLED AND CLARIFIED WITH DR MURRAY NUMBER OF UNITS NEEDED; NEW ORDERS THAT PATIENT ONLY RECEIVE 1 UNIT PLATLETS, 1 UNIT OF PRBC AND IVIG; NOTIFIED BLOOD BANK. PT DENIES PAIN, CHEST PAIN, SOB, NAUSEA AND DIZZINESS CURRENTLY. PLANS FOR LASIX AFTER TRANSFUSION AND IVIG. PT ITCHY, PETECHIAE AND SCABS SCATTERED T/O. VSS. NO OTHER ACUTE CHANGES NOTED. WILL CONTINUE TO MONITOR UNITL REPORT GIVEN TO ONCOMING RN.
--- NOTE | 2021-07-30 19:40 | NUR ---
ASSUMED CARE OF PATIENT AT 1900. A/OX4 BUT VISIBLY VERY UNCOMFORTABLE WITH THE AMOUNT THAT HIS BODY ITCHES. THIS HAS BEEN AN MORE RECENT ONGOING PROBLEM THAT DOESN'T HAVE A TREATMENT THAT HAS WORKED YET PATIENT IS INFUSING IVIG CURRENTLY PER PARAMETERS. REPORTED NO PAIN/CP/CHEST PRESSURE. MAINTAINING ABOVE 90% ON RA, WITH CLEAR UPPER AND DIM AT BASES. BOUNDING RADIAL PULSES AND FAINT PEDALS BILATERALLY. SINUS TACH ON MONITOR IN LOW 100'S. GENERALIZED NON-PITTING EDEMA, DIFFUSE PETECHIAE. URINE VERY CLEAR, LIGHT YELLOW. SKIN IS VERY DRY, THICKENED AND RED. SCABS FROM ITCHING CAN BE NOTED ON ALL EXTREMITIES. VSS. WILL UPDATE CHANGES OCCUR.
[2021-07-31 04:53] LABS: BASOPHILS ABSOLUTE AUTO 0.16 K/mm3 (0.00-0.23); BASOPHILS PERCENT AUTO 2 % (0-2); EOSINOPHILS ABSOLUTE AUTO 0.82 K/mm3 (0.00-0.68); EOSINOPHILS PERCENT AUTO 9 % (0-6); Hematocrit 22.4 % (37.0-53.0); Hemoglobin 6.8 g/dL (13.5-17.5); IMMATURE GRAN ABSOLUTE AUTO 0.17 K/mm3 (0.00-0.10); IMMATURE GRAN PERCENT AUTO 2 % (0-1); LYMPHOCYTES ABSOLUTE AUTO 0.91 K/mm3 (0.84-5.20); LYMPHOCYTES PERCENT AUTO 10 % (21-46); MONOCYTES ABSOLUTE AUTO 1.11 K/mm3 (0.16-1.47); MONOCYTES PERCENT AUTO 12 % (4-13); Mean Corpuscular HGB Conc 30.4 g/dL (31.5-36.5); Mean Corpuscular Volume 79 fL (80-100); NEUTROPHILS ABSOLUTE AUTO 6.43 K/mm3 (1.96-9.15); NEUTROPHILS PERCENT AUTO 67 % (41-73); RDW Coefficient Variation 17.6 % (11.7-14.2); RDW Standard Deviation 49.1 fL (35.1-46.3); Red Blood Cell Count 2.83 M/mm3 (4.30-5.90)
[2021-07-31 05:03] LABS: International Normalized Ratio 1.02; Prothrombin Time Results 10.7 Sec (9.7-11.5)
[2021-07-31 05:50] LABS: Platelet Count 3 K/mm3 (150-400)
[2021-07-31 06:22] LABS: Alanine Aminotransfer (ALT/SGP 18 U/L (12-78); Albumin, Blood 2.7 g/dL (3.4-5.0); Albumin/Globulin Ratio 0.6 (0.8-1.8); Alk Phos 53 U/L (50-136); Anion Gap 7 mmol/L (6-16); Aspartate Aminotrans (AST/SGOT 12 U/L (12-37); Bilirubin, Total 0.4 mg/dL (0.1-1.0); Blood Urea Nitrogen 28 mg/dL (8-24); Bun/Creatinine Ratio 29.2 (12.0-20.0); CO2, Blood 27 mmol/L (21-32); Calcium, Blood 8.1 mg/dL (8.5-10.1); Chloride, Blood 101 mmol/L (98-108); Creatinine, Blood 0.96 mg/dL (0.60-1.20); Globulin, Blood 4.9 g/dL (2.2-4.0); Glomerular Filtration Rate >60 (60-); Glucose, Blood 254 mg/dL (70-99); Magnesium, Blood 1.9 mg/dL (1.6-2.4); Potassium, Blood 3.7 mmol/L (3.5-5.5); Sodium, Blood 135 mmol/L (136-145); Total Protein, Blood 7.6 g/dL (6.4-8.2)
--- NOTE | 2021-07-31 07:00 | NUR ---
The patient gave me permission to be his student nurse for this day shift. the patient is A&Ox4, relaxed, denies pain. VSS.
--- NOTE | 2021-07-31 12:37 | NUR ---
NOTIFIED DR SMILEY OF [facility] 360, NEW ORDERS FOR HUMALOG 10 UNITS SC x1 IWTH SLIDING SCALE AND RECHECK CBG AT 1400
[2021-07-31 15:54] LABS: Hematocrit 28.6 % (37.0-53.0); Hemoglobin 8.7 g/dL (13.5-17.5); Mean Corpuscular HGB 24.2 pg (26.0-34.0); Mean Corpuscular HGB Conc 30.4 g/dL (31.5-36.5); Mean Corpuscular Volume 80 fL (80-100); RDW Coefficient Variation 18.2 % (11.7-14.2); Red Blood Cell Count 3.59 M/mm3 (4.30-5.90); White Blood Cell Count 13.76 K/mm3 (4.00-11.30)
[2021-07-31 16:09] LABS: Platelet Count 9 K/mm3 (150-400)
--- NOTE | 2021-07-31 17:56 | NUR ---
SHIFT SUMMARY PT ALERT, ORINETED. AGGITATED AND IRRITABLE THIS EVENING. PT RUNNING A FEVER WITH INCREASE HEART RATE 120-150'S THIS EVENING, NOTIFIED DR GUAJARDO AND DR TOBIAS, NEW ORDERS ENTERED. PER DR GUAJARDO OK TO CONTINUE WITH IVIG INFUSION. PT REFUSING TO REMOVE BLANKETS OR BE PACKED WITH ICE, WHEN THIS RN ATTEMPTED TO REMOVE BLANKETS PT BECAME IRRITABLE TO STARTED YELLING AND STATED HE WOULD LEAVE AND ATTEMPTED TO JUMP UP OUT OF BED. PT EDCUATED ON REASON FOR BLANKET REMOVAL. PT DENIES PAIN, CHEST PAIN, SOB AND NAUSEA. PT REPORTS FEELING DIZZY WITH MOVEMENT. PT RECEIVIED 1 UNIT PRBC AND 1 UNIT PLATLETS. BLOOD SUGAR >300 FOR LUNCH AND AT APPROX 1400; NOTIIFED DR TOBIAS NEW ORDER ENTERED. OTHER VSS. NO OTHER ACUTE CHAGNES NOTED. WILL CONTINUE TO MONITOR UNTIL REPORT GIVEN TO ONCOMING RN.
[2021-07-31 19:45] LABS: Hematocrit 27.7 % (37.0-53.0); Hemoglobin 8.5 g/dL (13.5-17.5); Mean Corpuscular HGB 24.3 pg (26.0-34.0); Mean Corpuscular HGB Conc 30.7 g/dL (31.5-36.5); Mean Corpuscular Volume 79 fL (80-100); NRBC ABSOLUTE 0.03 K/mm3 (0.00-0.02); NRBC Auto 0.2 /100 WBC (0.0-0.2); RDW Coefficient Variation 18.6 % (11.7-14.2); RDW Standard Deviation 49.4 fL (35.1-46.3); White Blood Cell Count 15.44 K/mm3 (4.00-11.30)
[2021-07-31 19:52] LABS: Platelet Count 9 K/mm3 (150-400)
[2021-07-31 20:09] LABS: BASOPHILS PERCENT MAN 0 % (0-2); EOSINOPHILS ABSOLUTE MAN 0.46 K/mm3 (0.00-0.68); EOSINOPHILS PERCENT MAN 3 % (0-6); LYMPHOCYTES PERCENT MAN 2 % (21-46); MONOCYTES ABSOLUTE MAN 1.08 K/mm3 (0.16-1.47); MONOCYTES PERCENT MAN 7 % (4-13); NEUTROPHILS ABSOLUTE MAN 13.58 K/mm3 (1.96-9.15); SEG NEUTROPHILS PERCENT MAN 88 % (41-73); TOTAL CELLS COUNTED 100
--- NOTE | 2021-08-01 00:50 | NUR ---
TRANSFER/SUMMARY TRANSFER TO SURGICAL ROOM 207, REPORT CALLED TO BALLOON SANDER. PATIENT ACCOMPANIED WITH ALL BELONGINGS, MEDICATIONS AND CHART. PATIENT TRANSFERRED TO SURGICAL FLOOR VIA WHEELCHAIR. ITCHING REPORTED BY PATIENT IN TRANSFER, REPORTED TO SURGICAL NURSE. PATIENT REMAINED ALERT AND ORIENTED T/O NIGHT. BP STABLE. HR ELEVATED. PATIENT MEDICATED WITH TYLENOL FOR FEVER WITH LITTLE TO NO RELIEF. PATIENT EDUCATED ON KEEPING BLANKETS OFF BUT STATES "IM GOING TO OF HYPOTHERMIA". IVIG INFUSION COMPLETE. PATIENT ABLE TO WALK TO BATHROOM INDEPENDENTLY. DENIES CHEST PAIN/SOB DURING TIME IN PCU. NO OTHER SIGNIFICANT CHANGES.
--- NOTE | 2021-08-01 00:55 | NUR ---
PT ARRIVED TO UNIT PT ARRIVED @ APPROX 0045 TO UNIT, PT APPEARS TO BE A&O X4. PT DOES COMPLAIN OF FEELING LIGHT HEADED. SCATTERED SCRATCHES OVER BODY NOTED DUE TO PT SCRATCHING. PT ORIENTATED TO ROOM, CALL LIGHT W/IN REACH.
--- NOTE | 2021-08-01 04:13 | NUR ---
SHIFT SUMMARY PT A&O X4 & IN PLEASENT MOOD SINCE ARRIVAL FROM PCU. PT RESTED COMFORTABLY IN BED T/O NIGHT, DENIES PAIN. PT DOES REPORT LIGHTHEADED FEELING. CALL LIGHT W/IN REACH AND PT ORIENTATED TO ROOM. VSS, TEMP HAS BEEN ELEVATED BUT CURRENTLY TRENDING DOWNWARD.
--- NOTE | 2021-08-01 05:03 | NUR ---
TELE CHANGE COMPOSITE TECHNICIAN ANGELINA REPORTS PT IS TACHYCARDIC @ 130. PT VITAL SIGNS ASSESSED AND REVIEWED. PT DENIES N/V, CHEST PAIN/TIGHTNESS, OR SOB. WILL CONTINUE TO MONITOR PT FOR S/S OF CHANGE IN CARDIAC STATUS.
[2021-08-01 05:06] LABS: BASOPHILS ABSOLUTE AUTO 0.05 K/mm3 (0.00-0.23); BASOPHILS PERCENT AUTO 0 % (0-2); EOSINOPHILS ABSOLUTE AUTO 0.29 K/mm3 (0.00-0.68); EOSINOPHILS PERCENT AUTO 2 % (0-6); Hematocrit 28.9 % (37.0-53.0); Hemoglobin 8.5 g/dL (13.5-17.5); IMMATURE GRAN ABSOLUTE AUTO 0.15 K/mm3 (0.00-0.10); IMMATURE GRAN PERCENT AUTO 1 % (0-1); LYMPHOCYTES ABSOLUTE AUTO 0.62 K/mm3 (0.84-5.20); LYMPHOCYTES PERCENT AUTO 4 % (21-46); MONOCYTES ABSOLUTE AUTO 1.34 K/mm3 (0.16-1.47); MONOCYTES PERCENT AUTO 9 % (4-13); Mean Corpuscular HGB 24.4 pg (26.0-34.0); Mean Corpuscular HGB Conc 29.4 g/dL (31.5-36.5); Mean Corpuscular Volume 83 fL (80-100); NEUTROPHILS ABSOLUTE AUTO 11.97 K/mm3 (1.96-9.15); NEUTROPHILS PERCENT AUTO 83 % (41-73); RDW Coefficient Variation 19.6 % (11.7-14.2); RDW Standard Deviation 53.6 fL (35.1-46.3); Red Blood Cell Count 3.49 M/mm3 (4.30-5.90); White Blood Cell Count 14.42 K/mm3 (4.00-11.30)
[2021-08-01 05:19] LABS: International Normalized Ratio 1.04; Prothrombin Time Results 10.9 Sec (9.7-11.5)
[2021-08-01 05:20] LABS: Platelet Count 38 K/mm3 (150-400)
[2021-08-01 06:08] LABS: Magnesium, Blood 1.8 mg/dL (1.6-2.4)
[2021-08-01 06:09] LABS: Alanine Aminotransfer (ALT/SGP 21 U/L (12-78); Albumin, Blood 2.8 g/dL (3.4-5.0); Albumin/Globulin Ratio 0.4 (0.8-1.8); Alk Phos 65 U/L (50-136); Anion Gap 10 mmol/L (6-16); Aspartate Aminotrans (AST/SGOT 9 U/L (12-37); Bilirubin, Total 0.6 mg/dL (0.1-1.0); Blood Urea Nitrogen 27 mg/dL (8-24); Bun/Creatinine Ratio 23.5 (12.0-20.0); CO2, Blood 27 mmol/L (21-32); Calcium, Blood 8.8 mg/dL (8.5-10.1); Chloride, Blood 95 mmol/L (98-108); Creatinine, Blood 1.15 mg/dL (0.60-1.20); Glomerular Filtration Rate >60 (60-); Glucose, Blood 211 mg/dL (70-99); Potassium, Blood 3.3 mmol/L (3.5-5.5); Sodium, Blood 132 mmol/L (136-145)
[2021-08-01 06:15] LABS: Total Protein, Blood 9.8 g/dL (6.4-8.2)
--- NOTE | 2021-08-01 17:03 | NUR ---
SHIFT SUMMARY PT A/O X4 AND VERY SLEEPY THIS SHIFT. PT MEDICATED FOR ITCHING X1 THIS SHIFT WITH GOOD EFFECT. PT HAS CHRONIC ITP WITH PETECHIAE RASH ON VAST MAJORITY OF BODY. GIVEN IRON AND OCTAGAM THIS SHIFT. PT FEBRILE FOR THE MAJORITY OF THE SHIFT AND TEMP IS DOWN TO 99.4 AT THIS MOMENT. OTHER VITAL SIGNS CURRENTLY STABLE. RESTING COMFORTABLY WITH HIS CALL LIGHT IN REACH. ABLE TO MAKE NEEDS KNOWN. WILL REPORT TO EUGENIA RUSHING.
--- NOTE | 2021-08-01 17:32 | NUR ---
IGG INFUSION STARTED AT 54 ML/HR FOR THE FIRST 30 MINUTES. ALL 9 BOTTLES TO BE INFUSED. CONFIRMED WITH PHARMACY.
[2021-08-01 17:35] LABS: Source, Urine Clean Catch
[2021-08-01 17:38] LABS: Appearance, Urine Clear (Clear); Bilirubin, Urine Neg (Neg); Blood, Urine 1+ (Neg); Color, Urine Yellow (P-Yellow); Glucose Qualitative, Urine Neg (Neg); Ketones, Urine Neg (Neg); Leukocyte Esterase, Urine Neg (Neg); Nitrite, Urine Neg (Neg); Protein, Urine 2+ (Neg); Specific Gravity, Urine 1.015 (1.003-1.022); Urobilinogen, Urine NORM (Normal)
[2021-08-01 17:48] LABS: Granular Casts Rare /lpf (0)
[2021-08-01 17:50] LABS: Bacteria Mod /hpf; Red Blood Cells, Urine Rare /hpf (0-2); Squamous Epithelial Cells Rare /hpf (Few); White Blood Cells, Urine Rare /hpf (0-5)
--- NOTE | 2021-08-01 18:33 | NUR ---
IGG STOPPED AT 1815 DUE TO PT BECOMING INCREASINGLY TACHYCARDIC. PER EQUIPMENT VALIDATION SPECIALIST HR IN 140'S. STAT EKG DONE AND SHOWS SINUS TACH. IF PT CONVERTS TO AFIB HE IS TO BE TRANSFERRED TO PCU AND STARTED ON DILTIAZEM.
--- NOTE | 2021-08-01 18:37 | NUR ---
spoke with dr olsen in regards to patients hr climbing into 140's/150's per tele. notified him that it began climbing after igg was started and was climbing. orders recieved to dc igg imediatly and to collect a stat ekg, if afib than transfer to pcu. ekg done, sinus tach. pt denied any feelings of discomfort in his chest no flutters or lightheadedness. primary rn dc'd igg at 1814.
--- NOTE | 2021-08-01 21:00 | NUR ---
DR. TOBIAS CALLED FOR UPDATE PT REPORT PROVIDED TO DR. TOBIAS. REPORTS PLAN TO FOLLOW UP W/ DR. GUAJARDO IN AM TO FORMULE PLAN TO MOVING FORWARD. CONFIRMS IF PT TRANSITIONS INTO AFIB PT SHOULD TRANSFER TO PCU FOR ROSA CALABRESE.
--- NOTE | 2021-08-02 03:01 | NUR ---
DR HERRON CONTACTED DR HERRON CONTACTED REGYOSELYNRDING THE GRAM POSITIVE CLUSTERS REPORTED FROM LAB, [facility]UKI ALEJANDRE.
--- NOTE | 2021-08-02 03:39 | NUR ---
SHIFT SUMMARY PT A&O X4 AND IN PLEASENT MOOD T/O SHIFT. PT WAS @ BEDSIDE UNTIL APPROX 2029. METHODS AND PROCEDURES ANALYST REPORTS SINUS TACH 118. PT RESTED IN BED T/O MOST OF NIGHT. TOLERATING PO INTAKE AND VOIDING WELL. CALL LIGHT W/IN REACH. DR. HERRON CONTACTED DURING SHIFT, SEE NOTES.
[2021-08-02 05:34] LABS: BASOPHILS ABSOLUTE AUTO 0.04 K/mm3 (0.00-0.23); BASOPHILS PERCENT AUTO 1 % (0-2); EOSINOPHILS PERCENT AUTO 14 % (0-6); Hematocrit 24.4 % (37.0-53.0); Hemoglobin 7.3 g/dL (13.5-17.5); IMMATURE GRAN ABSOLUTE AUTO 0.16 K/mm3 (0.00-0.10); IMMATURE GRAN PERCENT AUTO 3 % (0-1); LYMPHOCYTES ABSOLUTE AUTO 0.46 K/mm3 (0.84-5.20); LYMPHOCYTES PERCENT AUTO 9 % (21-46); MONOCYTES ABSOLUTE AUTO 1.08 K/mm3 (0.16-1.47); MONOCYTES PERCENT AUTO 21 % (4-13); Mean Corpuscular HGB 24.1 pg (26.0-34.0); Mean Corpuscular HGB Conc 29.9 g/dL (31.5-36.5); Mean Corpuscular Volume 81 fL (80-100); NEUTROPHILS ABSOLUTE AUTO 2.64 K/mm3 (1.96-9.15); NEUTROPHILS PERCENT AUTO 52 % (41-73); RDW Coefficient Variation 19.2 % (11.7-14.2); RDW Standard Deviation 53.4 fL (35.1-46.3); Red Blood Cell Count 3.03 M/mm3 (4.30-5.90); White Blood Cell Count 5.08 K/mm3 (4.00-11.30)
[2021-08-02 05:40] LABS: Albumin, Blood 2.3 g/dL (3.4-5.0); Albumin/Globulin Ratio 0.4 (0.8-1.8); Bilirubin, Total 0.4 mg/dL (0.1-1.0); Bun/Creatinine Ratio 21.9 (12.0-20.0); C-REACTIVE PROTEIN, EXT RANGE 14.4 mg/dL (0.000-0.300); Calcium, Blood 8.3 mg/dL (8.5-10.1); Creatinine, Blood 1.28 mg/dL (0.60-1.20); Globulin, Blood 5.9 g/dL (2.2-4.0); Potassium, Blood 3.4 mmol/L (3.5-5.5); Total Protein, Blood 8.2 g/dL (6.4-8.2)
[2021-08-02 06:05] LABS: Platelet Count 12 K/mm3 (150-400)
--- NOTE | 2021-08-02 09:51 | NUR ---
PT TRANSFERRED TO PCU 12 AFTER HR CONVERTED TO AFIB IN THE 200'S. PT NOT SUSTAINING IN AFIB PRIOR TO TRANSFER AND IN SINUS TACH. PT DENIES CP/PALPITATIONS OR ANY ADDITIONAL SYMPTOMS. REPORT GIVEN TO INEZDAVID VERGARA RN.
--- NOTE | 2021-08-02 15:34 | NUR ---
Echocardiogram completed.
[2021-08-02 19:21] LABS: BASOPHILS ABSOLUTE AUTO 0.03 K/mm3 (0.00-0.23); BASOPHILS PERCENT AUTO 1 % (0-2); EOSINOPHILS ABSOLUTE AUTO 1.45 K/mm3 (0.00-0.68); EOSINOPHILS PERCENT AUTO 30 % (0-6); Hematocrit 24.6 % (37.0-53.0); Hemoglobin 7.4 g/dL (13.5-17.5); IMMATURE GRAN ABSOLUTE AUTO 0.16 K/mm3 (0.00-0.10); IMMATURE GRAN PERCENT AUTO 3 % (0-1); LYMPHOCYTES PERCENT AUTO 8 % (21-46); MONOCYTES ABSOLUTE AUTO 1.02 K/mm3 (0.16-1.47); MONOCYTES PERCENT AUTO 21 % (4-13); Mean Corpuscular HGB 24.3 pg (26.0-34.0); Mean Corpuscular HGB Conc 30.1 g/dL (31.5-36.5); Mean Corpuscular Volume 81 fL (80-100); NEUTROPHILS ABSOLUTE AUTO 1.86 K/mm3 (1.96-9.15); NEUTROPHILS PERCENT AUTO 38 % (41-73); RDW Coefficient Variation 19.6 % (11.7-14.2); Red Blood Cell Count 3.05 M/mm3 (4.30-5.90); White Blood Cell Count 4.92 K/mm3 (4.00-11.30)
--- NOTE | 2021-08-02 19:21 | NUR ---
END OF SHIFT SUMMARY: PATIENT HAD A FORMED LARGE BLOODY STOOL AT 1845, HOSPITALIST NOTIFIED, CBC STAT. NIGHT HOSPITALIST TO FOLLOW UP. PATIENT BP STABLE [place] STABLE DENIES CHEST PAIN OR TIGHTNESS. +BLOOD CULTURE, CONTACT ISO, CRITICAL LOW PLATLET. STAND BY ASSIST, GAIT IS STRONG, USES CALL LIGHT APPROPRIATELY, RA SPO2 >94% PATIENT SKIN RASH, SCABS AND SCRATCHES THROUGHOUT ENTIRE BODY, ALERT AND ORIENTED. SR TO ST FOR [place]. FOLLOWED BY ONCOLOGY AND DERMATOLOGY DR. NESS'
[2021-08-02 19:24] LABS: Platelet Count 4 K/mm3 (150-400)
[2021-08-03 03:59] LABS: BASOPHILS ABSOLUTE AUTO 0.03 K/mm3 (0.00-0.23); BASOPHILS PERCENT AUTO 1 % (0-2); EOSINOPHILS ABSOLUTE AUTO 1.45 K/mm3 (0.00-0.68); EOSINOPHILS PERCENT AUTO 33 % (0-6); Hemoglobin 6.8 g/dL (13.5-17.5); IMMATURE GRAN ABSOLUTE AUTO 0.17 K/mm3 (0.00-0.10); IMMATURE GRAN PERCENT AUTO 4 % (0-1); LYMPHOCYTES ABSOLUTE AUTO 0.47 K/mm3 (0.84-5.20); LYMPHOCYTES PERCENT AUTO 11 % (21-46); MONOCYTES ABSOLUTE AUTO 0.95 K/mm3 (0.16-1.47); MONOCYTES PERCENT AUTO 22 % (4-13); Mean Corpuscular HGB 24.5 pg (26.0-34.0); Mean Corpuscular HGB Conc 29.6 g/dL (31.5-36.5); Mean Corpuscular Volume 83 fL (80-100); NEUTROPHILS ABSOLUTE AUTO 1.31 K/mm3 (1.96-9.15); NEUTROPHILS PERCENT AUTO 30 % (41-73); RDW Coefficient Variation 20.4 % (11.7-14.2); RDW Standard Deviation 56.5 fL (35.1-46.3); Red Blood Cell Count 2.77 M/mm3 (4.30-5.90); White Blood Cell Count 4.38 K/mm3 (4.00-11.30)
[2021-08-03 04:21] LABS: Vancomycin, Trough 11.2 ug/mL (5.0-10.0)
[2021-08-03 04:28] LABS: Platelet Count 16 K/mm3 (150-400)
[2021-08-03 04:32] LABS: Anion Gap 5 mmol/L (6-16); Blood Urea Nitrogen 25 mg/dL (8-24); Bun/Creatinine Ratio 22.5 (12.0-20.0); CO2, Blood 26 mmol/L (21-32); Calcium, Blood 8.4 mg/dL (8.5-10.1); Chloride, Blood 109 mmol/L (98-108); Creatinine, Blood 1.11 mg/dL (0.60-1.20); Glomerular Filtration Rate >60 (60-); Glucose, Blood 225 mg/dL (70-99); Magnesium, Blood 2.1 mg/dL (1.6-2.4); Phosphorus, Blood 2.7 mg/dL (2.5-4.9); Potassium, Blood 3.9 mmol/L (3.5-5.5); Sodium, Blood 140 mmol/L (136-145)
--- NOTE | 2021-08-03 06:23 | NUR ---
SHIFT SUMMARY PATIENT IS A&OX4 AND PLESANT WITH CARE. STEADY IN ROOM SO UP IND AND CALLING APPROPRIATELY. CRITICAL PLTS OF 4 TO START SHIFT SO 2 UNITS OF PLASMA INFUSED AND RECHECK OF PLTS WAS 16.HGB OF 6.8 SO 1 UNIT OF PRBCS ORDERED. HAVING SOME BUE WEEPING CLEAR LIQUID. SKIN RED AND IRRITATED AND VERY ITCHY WITH PRN ATIVAN Q4H HELPING GREATLY WITH THIS. VSS. ON RA. ST ON THE MONITOR IN THE LOW 100'S. SKIN IS PAINFUL TO TOUCH BUT OTHERWISE COMFORTABLE. IV ABX INFUSED PER ORDER. VOIDING WELL IN BATHROOM. NO BM OVERNIGHT. WILL CONTINUE PLAN OF CARE UNTIL REPORT GIVEN TO ANSHUL RUSHING.
--- NOTE | 2021-08-03 13:23 | NUR ---
UPDATE THIS AM ORDERED TO GIVE PT BENADRYL AND ATIVAL TOGETHER TO ATTEMPT TO CONTROL ITCHINESS. PT NOW CONFUSED. DOES NOT KNOW WHERE HE IS OR THE YEAR. NOW BECOMING IMPULSIVE GETITNG OUT OF BED. AGGITATED. NO LONGER HAS A STEADY GATE. PHYSICIAN NOTIFIED. ORDERS TO HOLD ATIVAN AND BENADRYL AT THIS TIME TO SEE IF MENTATION CLEARS. IF NO CLEAR THEN ORDERS FOR SOFT WRIST RESTRAINTS TO BE PLACED AN CT SCAN. NEW ORDERS FOR SOLUMEDROL TO BE PUT INTO MAR PER PHYSICIAN ORDER.
--- NOTE | 2021-08-03 15:47 | NUR ---
PHYSICIAN UPDATE PT NOW BECOMING NONDIRECTABLE AND AGGITATED. LEFT BED WHEN INSTRUCTED NOT TO DO SO D/T UNSTEADY GATE. PT DEMANDS TO GO TO BATHROOM. D/T WEAKNESS PT VERY HIGH FALL RISK. PT CONT TO BATHROOM AND REFUSED TO SIT EVEN THOUGH UNSTEADY AND DIRECTED TO DO SO. PHYSICIAN AWARE. ORDERS FOR SOFT WRIST RESTRIANTS, HALDOL, INCREASE IN ATIVAN AND CONDOM CATH TO BE PLACED. WILL PLACE ORDERS PER PHYSICIAN.
[2021-08-03 16:43] LABS: Hematocrit 26.2 % (37.0-53.0); Mean Corpuscular HGB 24.4 pg (26.0-34.0); Mean Corpuscular HGB Conc 30.5 g/dL (31.5-36.5); Mean Corpuscular Volume 80 fL (80-100); RDW Coefficient Variation 19.9 % (11.7-14.2); RDW Standard Deviation 54.1 fL (35.1-46.3); Red Blood Cell Count 3.28 M/mm3 (4.30-5.90); White Blood Cell Count 6.44 K/mm3 (4.00-11.30)
[2021-08-03 16:48] LABS: Platelet Count 15 K/mm3 (150-400)
[2021-08-03 17:22] LABS: BAND PERCENT MAN 1 % (0-8); BASOPHILS ABSOLUTE MAN 0.06 K/mm3 (0.00-0.23); BASOPHILS PERCENT MAN 1 % (0-2); EOSINOPHILS ABSOLUTE MAN 1.09 K/mm3 (0.00-0.68); EOSINOPHILS PERCENT MAN 17 % (0-6); LYMPHOCYTES ABSOLUTE MAN 0.32 K/mm3 (0.84-5.20); LYMPHOCYTES PERCENT MAN 5 % (21-46); METAMYELOCYTE ABSOLUTE MAN 0.12 K/mm3 (0.00-0.00); METAMYELOCYTE PERCENT MAN 2 % (0-0); MONOCYTES ABSOLUTE MAN 0.38 K/mm3 (0.16-1.47); MONOCYTES PERCENT MAN 6 % (4-13); NEUTROPHILS ABSOLUTE MAN 4.44 K/mm3 (1.96-9.15); SEG NEUTROPHILS PERCENT MAN 68 % (41-73); TOTAL CELLS COUNTED 100
--- NOTE | 2021-08-03 18:52 | NUR ---
SHIFT SUMMARY PT BECAME CONFUSED DURING SHIFT. PHYSICIAN AWARE, SEE NOTES. PT ALERT TO SELF. UNSURE OF LOCATION AND YEAR. IV ACCESS DIFFICULT FOR BLOOD TRANSFUSION THIS AM. ORDERS FOR PT TO HAVE PICC LINE PLACED. ICU POWER TECHNICIAN PLACED PICC. PICC BEGAN TO OOZE BLOOD D/T LOW PLATELET LEVEL. POWER TECHNICIAN IN ROOM, REDRESSED PICC AND GAUZE PLACED. NO MORE OOZING NOTED. SITE WNL. HGB INCREASING AFTER TRANSFUSION. 2100 CBC AND PLATELET COUNT TO BE DONE. IF PT HAS PLATELET COUNT LOWER THAN 5, PT TO HAVE 1 UNIT OF PLATELET TRANSFUSION. PT IN [place] D/T AGGITATION AND CONFUSION. PT RESPONDING WELL TO HALDOL IM AND SOLUMEDROL FOR ITCHING AND AGGITATION. HR STABLE. BP STABLE. OXYGEN SATURATION MAINTAINED ABOVE 92% ON RA. NO CP OR PRESSURE. BED ALARM IN PLACE. AT BEDSIDE AND UPDATED BY PHYSICIAN THIS EVENING. PLAN FOR MRI OR HEAD CT IN THE AM TO COMPARE /'S SCAN. WILL CONT TO MONITOR UNTIL REPORT GIVEN TO RAEGAN RUSHING.
--- NOTE | 2021-08-03 21:14 | NUR ---
PATIENT ASLEEP DURING SHIFT CHANGE FOR HANDOFF AT 1914, WAS CALLED AROUND OR ABOUT 2044 PATIENT FOUND IN RESTROOM BY JACE NAYLOR AND HAD PULLED OUT PICC LINE WAS ESCORTED BACK TO BED BY STAFF, ROOM CLEANED, RADHA WAS TO ATTEMPT TO GET ANOTHER IV BUT NOT SUCCESSFUL. NO STAFF AT NIGHT TO REPLACE PICC LINE, LAB WAS CALLED TO ATTEMPT TO GET LABS FOR SCHEDULED 2099. PATIENT HAS PLATELETS ORDER DEPENDENT ON LAB VALUE WILL CONTINUE TO MONITOR, FURNITURE PACKER ADVISED PATIENT IS TO BE MOVED INTO A DOBSON ROOM FOR SAFETY, BED ALARM IS ON AND EDUCATION PROVIDED TO PATIENT ON USING CALL LIGHT PRIOR TO GETTING OUT OF BED.
[2021-08-03 21:51] LABS: Hematocrit 27.7 % (37.0-53.0); Hemoglobin 8.4 g/dL (13.5-17.5); Mean Corpuscular HGB 24.3 pg (26.0-34.0); Mean Corpuscular HGB Conc 30.3 g/dL (31.5-36.5); Mean Corpuscular Volume 80 fL (80-100); RDW Coefficient Variation 20.5 % (11.7-14.2); RDW Standard Deviation 54.7 fL (35.1-46.3); Red Blood Cell Count 3.46 M/mm3 (4.30-5.90); White Blood Cell Count 4.57 K/mm3 (4.00-11.30)
[2021-08-03 21:53] LABS: Platelet Count 16 K/mm3 (150-400)
--- NOTE | 2021-08-03 22:00 | NUR ---
PATIENT BEING MOVED TO PCU 3 AND REPORT GIVEN TO ANDREY RUSHING.
[2021-08-03 22:18] LABS: BAND PERCENT MAN 16 % (0-8); BASOPHILS PERCENT MAN 0 % (0-2); EOSINOPHILS ABSOLUTE MAN 0.04 K/mm3 (0.00-0.68); EOSINOPHILS PERCENT MAN 1 % (0-6); LYMPHOCYTES % ATYPICAL MANUAL 1 % (0-0); LYMPHOCYTES ABSOLUTE MAN 0.31 K/mm3 (0.84-5.20); LYMPHOCYTES PERCENT MAN 6 % (21-46); MONOCYTES ABSOLUTE MAN 0.13 K/mm3 (0.16-1.47); MONOCYTES PERCENT MAN 3 % (4-13); MYELOCYTE ABSOLUTE MAN 0.04 K/mm3 (0.00-0.00); MYELOCYTE PERCENT MAN 1 % (0-0); NEUTROPHILS ABSOLUTE MAN 4.02 K/mm3 (1.96-9.15); SEG NEUTROPHILS PERCENT MAN 72 % (41-73); TOTAL CELLS COUNTED 100
[2021-08-04 06:20] LABS: BASOPHILS ABSOLUTE AUTO 0.02 K/mm3 (0.00-0.23); BASOPHILS PERCENT AUTO 0 % (0-2); EOSINOPHILS PERCENT AUTO 0 % (0-6); Hematocrit 26.8 % (37.0-53.0); Hemoglobin 8.4 g/dL (13.5-17.5); IMMATURE GRAN ABSOLUTE AUTO 0.19 K/mm3 (0.00-0.10); IMMATURE GRAN PERCENT AUTO 3 % (0-1); LYMPHOCYTES ABSOLUTE AUTO 0.52 K/mm3 (0.84-5.20); LYMPHOCYTES PERCENT AUTO 9 % (21-46); MONOCYTES ABSOLUTE AUTO 0.33 K/mm3 (0.16-1.47); MONOCYTES PERCENT AUTO 6 % (4-13); Mean Corpuscular HGB 24.9 pg (26.0-34.0); Mean Corpuscular HGB Conc 31.3 g/dL (31.5-36.5); Mean Corpuscular Volume 79 fL (80-100); NEUTROPHILS ABSOLUTE AUTO 4.73 K/mm3 (1.96-9.15); NEUTROPHILS PERCENT AUTO 82 % (41-73); NRBC ABSOLUTE 0.02 K/mm3 (0.00-0.02); NRBC Auto 0.3 /100 WBC (0.0-0.2); RDW Coefficient Variation 19.8 % (11.7-14.2); RDW Standard Deviation 51.7 fL (35.1-46.3); Red Blood Cell Count 3.38 M/mm3 (4.30-5.90); White Blood Cell Count 5.79 K/mm3 (4.00-11.30)
[2021-08-04 06:22] LABS: Platelet Count 16 K/mm3 (150-400)
[2021-08-04 06:32] LABS: International Normalized Ratio 1.01; Prothrombin Time Results 10.6 Sec (9.7-11.5)
[2021-08-04 06:37] LABS: Anion Gap 6 mmol/L (6-16); Blood Urea Nitrogen 20 mg/dL (8-24); Bun/Creatinine Ratio 20.2 (12.0-20.0); CO2, Blood 25 mmol/L (21-32); Calcium, Blood 8.7 mg/dL (8.5-10.1); Chloride, Blood 106 mmol/L (98-108); Creatinine, Blood 0.99 mg/dL (0.60-1.20); Glomerular Filtration Rate >60 (60-); Glucose, Blood 308 mg/dL (70-99); Sodium, Blood 137 mmol/L (136-145)
--- NOTE | 2021-08-04 07:41 | NUR ---
SHIFT SUMMARY PT TRANSFER FROM PCU 12 TO PCU 3. ASSUMED CARE AROUND 2200. BP STABLE, HR SB/SR 50'S AND 60'S. ON RA MAINTAINING SATS OVER 92%. C/O ITCHINESS ALL OVER BODY. VOIDING WITH BEDSIDE URINAL. VIRGIL PG DRAWS BLOOD. TKO INFUSING AT 20ML/HR. IN BED RESTING WITH CALL ALARM AT SIDE
--- NOTE | 2021-08-04 09:15 | NUR ---
CARE ASSUMPTION PT A&O X4, CALM & COOPERATIVE. VSS. SPO2 > 92% ON RA. MONITOR SHOWS SR, HR 70's-90's. PT W/ DRY, RED, FLAKY SKIN T/O W/ C/O ITCHING, MEDICATED W/ PRN BENADRYL PER EMAR.
--- NOTE | 2021-08-04 11:31 | NUR ---
BLOOD PER RECTUM PT UP TO COMMODE W/ LARGE, SOFT, BROWN, SEMI FORMED BM & URINE IN COMMODE. LIQUID IN COMMODE NOTED TO BE DARK BROWN/RED. BRIGHT RED NOTED ON WIPES WELL. PT URINE IN URINAL BEFORE & AFTER COMMODE USE YELLOW W/ NO REDNESS NOTED.
[2021-08-04 15:38] LABS: Vancomycin, Trough 16.6 ug/mL (5.0-10.0)
--- NOTE | 2021-08-04 16:09 | NUR ---
Pt sitting up figeting and itching but calm. Did symptom review with pt he denies headaches or visual disturbance.He is not having ringining in his ears but has been having the past few days increased fullness and ears feeling plugged up feels may be a lump in the left ear. He denies any issue with breathing through his nose or discharge. No trouble swallowing he only has one tooth and states it is stable. Complains of very sore dry mouth. He denies dyspnea and difficult ventilation. No productive cough. Some back and joint pain. Denies constipation. He has some scrotal swelling but able to urinate. He itiches all the time. Asked him how many doctors he had. He most sees Tom Gonzales the oncolgist. HE also sees jorden Gonzales MD for his skin. He has not been followed by a interior wirer. He has not be refered to other oncology or ohu for care. Pt then becan to review everything he has been through since 2013 and how the Janet's have helped him. He reviewed his medicaions and treatments. He hate to take anythin sedating during the day. He will take the haldol at night. He is supposed to be on his lotion from Dr Gonzales but cannot bring it in. He feels good in a warm shower. He like to drink rootbee and lemonade but wont because of the sugar. He talked alot about his dog and bird and and wanting to go on an RV trip with them. We talked about ways to have brief moments of escape mentally.He feels he will cope better when at home with his and pets. Advise hime will follow him for symptoms and theraputic time. Briefly suggested he have and advance directive and we can talk later. review with nursing. Suggest we use the breathable skin care cream. If he is here on saturday call Dr Gonzales office and see if we can get a new unopened bottle of his lotion and bring it in with his . Pt has never tried cool compress or ice. Suggested he put ice on hot spots briefly and rotate with heat. Suggest we shower him twice a day. Will continue to follow. KPS 50%
--- NOTE | 2021-08-04 19:41 | NUR ---
SHIFT SUMMARY PT A&O X4, PLEASANT & COOPERATIVE T/O SHIFT. VSS. SPO2 > 92% ON RA. MONITOR SHOWING SR, HR 70's-90's. PT C/O ITCHY SKIN, MEDICATED PER PT REQUEST W/ PRN BENADRYL, ATARAX & ATIVAN PER ORDERS W/ IMPROVEMENT IN SYMPTOMS. NO EVENTS T/O SHIFT.
[2021-08-04 20:32] LABS: Glucose, Blood 559 mg/dL (70-99)
[2021-08-05 05:15] LABS: BASOPHILS ABSOLUTE AUTO 0.02 K/mm3 (0.00-0.23); BASOPHILS PERCENT AUTO 0 % (0-2); EOSINOPHILS PERCENT AUTO 0 % (0-6); Hemoglobin 7.8 g/dL (13.5-17.5); IMMATURE GRAN ABSOLUTE AUTO 0.46 K/mm3 (0.00-0.10); IMMATURE GRAN PERCENT AUTO 3 % (0-1); LYMPHOCYTES ABSOLUTE AUTO 0.86 K/mm3 (0.84-5.20); LYMPHOCYTES PERCENT AUTO 6 % (21-46); MONOCYTES ABSOLUTE AUTO 0.88 K/mm3 (0.16-1.47); MONOCYTES PERCENT AUTO 6 % (4-13); Mean Corpuscular HGB 25.1 pg (26.0-34.0); Mean Corpuscular HGB Conc 31.2 g/dL (31.5-36.5); Mean Corpuscular Volume 80 fL (80-100); NEUTROPHILS ABSOLUTE AUTO 12.82 K/mm3 (1.96-9.15); NEUTROPHILS PERCENT AUTO 85 % (41-73); NRBC ABSOLUTE 0.06 K/mm3 (0.00-0.02); NRBC Auto 0.4 /100 WBC (0.0-0.2); RDW Coefficient Variation 20.3 % (11.7-14.2); RDW Standard Deviation 51.9 fL (35.1-46.3); Red Blood Cell Count 3.11 M/mm3 (4.30-5.90); White Blood Cell Count 15.04 K/mm3 (4.00-11.30)
[2021-08-05 05:21] LABS: Prothrombin Time Results 10.5 Sec (9.7-11.5)
--- NOTE | 2021-08-05 05:27 | NUR ---
SHIFT SUMMARY PT IS ALERT AND ORIENTED. PT'S VITALS HAVE BEEN STABLE AND IS ON ROOM AIR. PT DENIES CHEST PAIN OR SOB. PT'S GLUCOSE WAS 559 AT 1900 AND CALL WAS MADE TO DR HERRON TO NOTIFY OF RESULTS. LANTUS WAS INCREASED TO 55 UNITS NO CHANGES TO HS SCALE. PT HAS BEEN VERY THIRSTY AND HAS HAD A HIGH INTAKE WELL OUTPUT. HE HAS BEEN USING URINAL AT BEDSIDE. PT HAS BED ALARM ON FOR SAFETY BUT HAS NOT BEEN CONFUSED OR IMPULSIVE DURING THE NIGHT. HE HAS HAD ATIVAN AND BENADRYL FOR ITCHING. PLATELETE COUNT WAS 19 THIS AM. CALL LIGHT IS WITHIN REACH. WILL CONTINUE TO MONITOR.
[2021-08-05 05:30] LABS: Platelet Count 19 K/mm3 (150-400)
[2021-08-05 05:45] LABS: Anion Gap 6 mmol/L (6-16); Blood Urea Nitrogen 25 mg/dL (8-24); Bun/Creatinine Ratio 24.5 (12.0-20.0); CO2, Blood 25 mmol/L (21-32); Calcium, Blood 8.8 mg/dL (8.5-10.1); Chloride, Blood 107 mmol/L (98-108); Creatinine, Blood 1.02 mg/dL (0.60-1.20); Glomerular Filtration Rate >60 (60-); Glucose, Blood 361 mg/dL (70-99); Magnesium, Blood 2.1 mg/dL (1.6-2.4); Phosphorus, Blood 4.1 mg/dL (2.5-4.9); Potassium, Blood 3.7 mmol/L (3.5-5.5); Sodium, Blood 138 mmol/L (136-145)
--- NOTE | 2021-08-05 10:16 | NUR ---
CARE ASSUMPTION THIS RN ASSUMED CARE FROM MOLLY RN AT 0700. PATIENT IS A/OX4. VSS. PATIENT REPORTS NO PAIN, CHEST PAIN, OR SOB. PATIENT USES BEDSIDE URINAL. BED ALARM IS ON AND IS MONITORED VIA CAMERA. CALL LIGHT WITHIN REACH, WILL CONTINUE TO MONITOR AND PROVIDE CARE.
[2021-08-05 14:23] LABS: Hematocrit 26.8 % (37.0-53.0); Hemoglobin 8.3 g/dL (13.5-17.5); Mean Corpuscular HGB 25.3 pg (26.0-34.0); Mean Corpuscular Volume 82 fL (80-100); NRBC Auto 0.4 /100 WBC (0.0-0.2); RDW Coefficient Variation 21.3 % (11.7-14.2); RDW Standard Deviation 53.1 fL (35.1-46.3); Red Blood Cell Count 3.28 M/mm3 (4.30-5.90); White Blood Cell Count 22.29 K/mm3 (4.00-11.30)
[2021-08-05 14:33] LABS: Platelet Count 24 K/mm3 (150-400)
[2021-08-05 14:41] LABS: BAND PERCENT MAN 4 % (0-8); BASOPHILS PERCENT MAN 0 % (0-2); EOSINOPHILS PERCENT MAN 0 % (0-6); LYMPHOCYTES ABSOLUTE MAN 1.33 K/mm3 (0.84-5.20); LYMPHOCYTES PERCENT MAN 6 % (21-46); MONOCYTES ABSOLUTE MAN 0.44 K/mm3 (0.16-1.47); MONOCYTES PERCENT MAN 2 % (4-13); SEG NEUTROPHILS PERCENT MAN 88 % (41-73); TOTAL CELLS COUNTED 100
--- NOTE | 2021-08-05 18:05 | NUR ---
SHIFT SUMMARY PATIENT IS A/OX4. VSS. PATIENT HAS HAD HIGH CBG THROUGHOUT THE DAY, MD IS AWARE. PATIENT BROUGHT IN FOOD FOR PATIENT TO EAT, WITHOUT DISUCSSING IT WITH RN, AND GAVE HER INHALER TO THE PATIENT TO USE. THIS RN PROVIDED EDUCATION TO NOT GET HER MEDICATIONS TO HER AND TO ASK BEFORE GIVING RN BEFORE GIVING ANYTHING. NO ACUTE CHANGES THIS SHIFT. CALL LIGHT WITHIN REACH AND BED IN LOWEST POSITION. WILL CONTINUE TO MONITOR AND PROVIDE CARE UNTIL HAND OFF WITH NEXT SHIFT.
[2021-08-06 04:15] LABS: Hematocrit 27.6 % (37.0-53.0); Hemoglobin 8.6 g/dL (13.5-17.5); Mean Corpuscular HGB 25.8 pg (26.0-34.0); Mean Corpuscular HGB Conc 31.2 g/dL (31.5-36.5); Mean Corpuscular Volume 83 fL (80-100); NRBC ABSOLUTE 0.21 K/mm3 (0.00-0.02); NRBC Auto 0.9 /100 WBC (0.0-0.2); RDW Coefficient Variation 22.4 % (11.7-14.2); RDW Standard Deviation 53.6 fL (35.1-46.3); Red Blood Cell Count 3.33 M/mm3 (4.30-5.90); White Blood Cell Count 23.47 K/mm3 (4.00-11.30)
[2021-08-06 04:28] LABS: Alanine Aminotransfer (ALT/SGP 63 U/L (12-78); Albumin, Blood 2.8 g/dL (3.4-5.0); Albumin/Globulin Ratio 0.5 (0.8-1.8); Alk Phos 74 U/L (50-136); Anion Gap 6 mmol/L (6-16); Aspartate Aminotrans (AST/SGOT 46 U/L (12-37); Bilirubin, Total 0.5 mg/dL (0.1-1.0); Blood Urea Nitrogen 26 mg/dL (8-24); Bun/Creatinine Ratio 29.9 (12.0-20.0); CO2, Blood 26 mmol/L (21-32); Calcium, Blood 8.7 mg/dL (8.5-10.1); Chloride, Blood 106 mmol/L (98-108); Creatinine, Blood 0.87 mg/dL (0.60-1.20); Globulin, Blood 5.3 g/dL (2.2-4.0); Glomerular Filtration Rate >60 (60-); Glucose, Blood 205 mg/dL (70-99); Potassium, Blood 3.9 mmol/L (3.5-5.5); Sodium, Blood 138 mmol/L (136-145); Total Protein, Blood 8.1 g/dL (6.4-8.2)
[2021-08-06 04:36] LABS: Platelet Count 13 K/mm3 (150-400)
[2021-08-06 04:54] LABS: BAND PERCENT MAN 14 % (0-8); BASOPHILS PERCENT MAN 0 % (0-2); EOSINOPHILS PERCENT MAN 0 % (0-6); LYMPHOCYTES ABSOLUTE MAN 2.11 K/mm3 (0.84-5.20); LYMPHOCYTES PERCENT MAN 9 % (21-46); MONOCYTES ABSOLUTE MAN 0.46 K/mm3 (0.16-1.47); MONOCYTES PERCENT MAN 2 % (4-13); NEUTROPHILS ABSOLUTE MAN 20.88 K/mm3 (1.96-9.15); SEG NEUTROPHILS PERCENT MAN 75 % (41-73); TOTAL CELLS COUNTED 100
--- NOTE | 2021-08-06 05:50 | NUR ---
SHIFT SUMMARY PT IS ALERT AND ORIENTED. PT HAS BEEN VERY TIRED AND AGITATED T/O THE SHIFT. HE HAS BEEN IMPULSIVE AND HAS SET OFF THE BED ALARM SEVERAL TIMES. THIS MORNING HE WAS ADAMANT ABOUT GETTING UP TO WALK. CALL LIGHT IS WITHIN REACH AND BED ALARM IS ON.
--- NOTE | 2021-08-06 09:49 | NUR ---
CARE ASSUMPTION/TRANSFER TO MEDICAL THIS RN ASSUMED CARE FROM DARRIUS RUSHING AT 0700. PATIENT IS A/OX4. VSS. PATIENTS REPORTS NO CHEST PAIN, PAIN, BUT DOES HAVE SOB WITH MOVEMENT. THIS RN GAVE REPORT TO MED KRISTAN KAUFFMAN. PATIENT BELONGINGS GATHERED AND PATIENT MOVED TO MED ROOM VIA WHEELCHAIR.
[2021-08-06 14:15] LABS: Hematocrit 28.7 % (37.0-53.0); Hemoglobin 8.9 g/dL (13.5-17.5); Mean Corpuscular HGB 25.8 pg (26.0-34.0); Mean Corpuscular Volume 83 fL (80-100); NRBC ABSOLUTE 0.25 K/mm3 (0.00-0.02); RDW Coefficient Variation 22.9 % (11.7-14.2); RDW Standard Deviation 54.4 fL (35.1-46.3); Red Blood Cell Count 3.45 M/mm3 (4.30-5.90); White Blood Cell Count 25.66 K/mm3 (4.00-11.30)
[2021-08-06 14:19] LABS: Platelet Count 17 K/mm3 (150-400)
[2021-08-06 14:45] LABS: BAND PERCENT MAN 5 % (0-8); BASOPHILS PERCENT MAN 0 % (0-2); EOSINOPHILS PERCENT MAN 0 % (0-6); LYMPHOCYTES ABSOLUTE MAN 2.56 K/mm3 (0.84-5.20); LYMPHOCYTES PERCENT MAN 10 % (21-46); METAMYELOCYTE ABSOLUTE MAN 0.51 K/mm3 (0.00-0.00); METAMYELOCYTE PERCENT MAN 2 % (0-0); MONOCYTES ABSOLUTE MAN 1.53 K/mm3 (0.16-1.47); MONOCYTES PERCENT MAN 6 % (4-13); MYELOCYTE ABSOLUTE MAN 0.51 K/mm3 (0.00-0.00); MYELOCYTE PERCENT MAN 2 % (0-0); NEUTROPHILS ABSOLUTE MAN 20.52 K/mm3 (1.96-9.15); SEG NEUTROPHILS PERCENT MAN 75 % (41-73); TOTAL CELLS COUNTED 100
--- NOTE | 2021-08-06 16:05 | NUR ---
CALL TO CALL TO DR. TOBIAS TO DISCUSS OCTOGAM ADMINISTRATION. NEW ORDERS FOR TELE AND ADVISED TO ADMINISTER BENADRYL AND EXTRA DOSE OF SOLU-MEDROL IF REACTION OCCURS. CALL TO DR. GUAJARDO, CONFIRMED PATIENT HAS RECEIVED OCTOGAM MAY TIMES PREVIOUSLY WITHOUT REACTION.
--- NOTE | 2021-08-06 18:35 | NUR ---
SHIFT SUMMARY PCU TRANSFER AFTER LUNCH. PATIENT SETTLED INTO ROOM. DENIES PAIN AND NAUSEA. 2L/NC PRN FOR SHORTNESS OF BREATH. UP SBA TO BATHROOM. MEDICATED X3 FOR ITCHING. IV IGG TITRATED AND INFUSING, DENIES ANY SIDE EFFECTS. TELE RESUMED DURING IGG INFUSION. PATIENT EATING AND DRINKING WELL. PLEASANT AND COOPERATIVE WITH CARE.
[2021-08-07 04:55] LABS: BASOPHILS ABSOLUTE AUTO 0.06 K/mm3 (0.00-0.23); BASOPHILS PERCENT AUTO 0 % (0-2); EOSINOPHILS PERCENT AUTO 0 % (0-6); Hematocrit 25.1 % (37.0-53.0); Hemoglobin 7.7 g/dL (13.5-17.5); IMMATURE GRAN ABSOLUTE AUTO 1.54 K/mm3 (0.00-0.10); IMMATURE GRAN PERCENT AUTO 8 % (0-1); LYMPHOCYTES PERCENT AUTO 7 % (21-46); MONOCYTES ABSOLUTE AUTO 1.85 K/mm3 (0.16-1.47); MONOCYTES PERCENT AUTO 9 % (4-13); Mean Corpuscular HGB 26.2 pg (26.0-34.0); Mean Corpuscular HGB Conc 30.7 g/dL (31.5-36.5); Mean Corpuscular Volume 85 fL (80-100); NEUTROPHILS ABSOLUTE AUTO 14.97 K/mm3 (1.96-9.15); NEUTROPHILS PERCENT AUTO 76 % (41-73); NRBC ABSOLUTE 0.25 K/mm3 (0.00-0.02); NRBC Auto 1.3 /100 WBC (0.0-0.2); RDW Coefficient Variation 24.5 % (11.7-14.2); RDW Standard Deviation 54.2 fL (35.1-46.3); Red Blood Cell Count 2.94 M/mm3 (4.30-5.90); White Blood Cell Count 19.82 K/mm3 (4.00-11.30)
[2021-08-07 05:02] LABS: Platelet Count 41 K/mm3 (150-400)
--- NOTE | 2021-08-07 05:28 | NUR ---
SHIFT SUMMARY PT SLEPT WELL FOR MUCH OF THE SHIFT. WAKING JUST AFTER MIDNIGHT FEELING VERY ITCHY. MEDICATED WITH BENADRYL AND ATARAX WITH LITTLE EFFECT. ATIVAN THEN GIVEN WITH MODERATELY GOOD EFFECT. PT'S SKIN IS COVERED IN PSORIASIS/RASH. SKIN IS RED AND DRY. ORDERED IMMU GLOB COMPLETED. PLTS IMPROVED FROM 17 TO 41. PT ON 2 L VIA NC WITH O2 SATS IN THE HIGH 90'S. INTERMITTENT WHEEZING. BREATHING TX'S PER RT. CBG ELEVATED AT 332. SCHEDULED COVERAGE GIVEN. NO COMPLAINTS OF PAIN. VITAL SIGNS STABLE. PT HAD A MOSTLY UNEVENTFUL NIGHT.
[2021-08-07 05:39] LABS: Alanine Aminotransfer (ALT/SGP 174 U/L (12-78); Albumin, Blood 2.6 g/dL (3.4-5.0); Albumin/Globulin Ratio 0.5 (0.8-1.8); Alk Phos 94 U/L (50-136); Anion Gap 8 mmol/L (6-16); Aspartate Aminotrans (AST/SGOT 118 U/L (12-37); Bilirubin, Total 0.5 mg/dL (0.1-1.0); Blood Urea Nitrogen 34 mg/dL (8-24); Bun/Creatinine Ratio 34.5 (12.0-20.0); CO2, Blood 26 mmol/L (21-32); Calcium, Blood 8.1 mg/dL (8.5-10.1); Chloride, Blood 102 mmol/L (98-108); Creatinine, Blood 0.99 mg/dL (0.60-1.20); Globulin, Blood 5.5 g/dL (2.2-4.0); Glomerular Filtration Rate >60 (60-); Glucose, Blood 315 mg/dL (70-99); Magnesium, Blood 2.4 mg/dL (1.6-2.4); Potassium, Blood 3.9 mmol/L (3.5-5.5); Sodium, Blood 136 mmol/L (136-145); Total Protein, Blood 8.1 g/dL (6.4-8.2)
[2021-08-07 09:45] LABS: International Normalized Ratio 1.04; Prothrombin Time Results 10.9 Sec (9.7-11.5)
[2021-08-07] MEDS ORDERED: MASOPHEN325 M4 PO (17:49)
[2021-08-07] MEDS ORDERED: BISA10S PR (17:50)
[2021-08-07] MEDS ORDERED: DILT60 PO (17:51)
[2021-08-07] MEDS ORDERED: HYDR10 PO (17:51)
[2021-08-07] MEDS ORDERED: FAMO20 PO (17:51)
[2021-08-07] MEDS ORDERED: OCTAGAM 10% VIA20 ML IV (17:52)
[2021-08-07] MEDS ORDERED: INSULANPEN SC (17:53)
[2021-08-07] MEDS ORDERED: HUMALOG KW100 UNIT/1 SC (17:54)
[2021-08-07] MEDS ORDERED: PRED10 PO (17:55)
[2021-08-07] MEDS ORDERED: ONDA4ODT MM (17:56)
[2021-08-07] MEDS ORDERED: METO25 PO (17:56)
[2021-08-07] MEDS ORDERED: DOXYCYCLINE HY100 M1 PO (17:57)
--- NOTE | 2021-08-07 19:44 | NUR ---
Alert and oriented x3 , able to make needs known. One person assist with ADLS. Denies any pain. Had done biopsy today. Continue on vancomycin , no adverse effects noted. Pateint discharged home in a stable condition and discharged instruction acknowleged.
[2021-08-15 09:20] LABS: Performing Lab SYMBIODX; Test Name TISSUE BIOPSY
[2021-09-26] MEDS ORDERED: SPIRONOLACTONE50 MG PO (14:10)
== END 2021-08-07 18:10 | disposition home or self-care (01) | DRG 803 ==
LOC: ER 12:43 → ERHOLD 14:27 → PCU 14:27 → SURS 08-01 00:39 → PCU 08-02 09:09 → MEDS 08-06 10:13 → ENPENDDIS 08-07 17:37 → MEDS 08-07 18:10
PROVIDERS: Emergency Medicine; Internal Medicine; Internal Medicine Hematology & Oncology; Pathology Clinical Pathology/Laboratory Medicine; Pharmacist; Physician Assistant; ADMIT Family Medicine
PROC: 30233S1 Transfusion of Nonautologous Globulin into Peripheral Vein, Percutaneous Approach (ICD-10-PCS; principal; 2021-07-30)
PROC: 30233R1 Transfusion of Nonautologous Platelets into Peripheral Vein, Percutaneous Approach (ICD-10-PCS; 2021-07-30)
PROC: 07BJ3ZX Excision of Left Inguinal Lymphatic, Percutaneous Approach, Diagnostic (ICD-10-PCS; 2021-08-07)
DX: D69.3 Immune thrombocytopenic purpura (principal); E87.1 Hypo-osmolality and hyponatremia; R78.81 Bacteremia; N39.0 Urinary tract infection, site not specified; N18.30 Chronic kidney disease, stage 3 unspecified; D63.8 Anemia in other chronic diseases classified elsewhere; E11.65 Type 2 diabetes mellitus with hyperglycemia; R59.0 Localized enlarged lymph nodes; I48.0 Paroxysmal atrial fibrillation; B95.62 Methicillin resistant Staphylococcus aureus infection as the cause of diseases classified elsewhere; E11.22 Type 2 diabetes mellitus with diabetic chronic kidney disease; I12.9 Hypertensive chronic kidney disease with stage 1 through stage 4 chronic kidney disease, or unspecified chronic kidney disease; K21.9 Gastro-esophageal reflux disease without esophagitis; Z79.899 Other long term (current) drug therapy; Z20.822 Contact with and (suspected) exposure to COVID-19; B95.2 Enterococcus as the cause of diseases classified elsewhere
CPT/HCPCS: 0241U; 36415; 36430; 36569; 38505; 70450; 71045; 71260; 74177; 76942; 80048; 80053; 80202; 81001; 82728; 82947; 83036; 83540; 83550; 83735; 84100; 85007; 85025; 85027; 85610; 85651; 85730; 86140; 86850; 86900; 86901; 86923; 87040; 87077; 87086; 87147; 87186; 88305; 88341; 88342; 93005; 93010; 93306; 94640; 94760; 94761; 99285-25; A9270; C1751; J0360; J0696; J1200; J1568; J1630; J1815; J1940; J1956; J2060; J2916; J2930; J3370; J7030; J7040; J7050; P9016; P9035; P9053; Q9967

== ENCOUNTER 2021-09-28 03:24 | Inpatient (IN) | payer MEDICARE, OTHER ==
[~2021-09-28] VITALS: Ht 172.7 cm; Wt 94.1 kg
[~2021-09-28 03:24] MED LIST changes: +BASAGLAR K100 UNIT/1 SC; +BISA10S PR; +DILT60 PO; +DOXYCYCLINE HY100 M1 PO; +FAMO20 PO; +HUMALOG KW100 UNIT/1 SC; +HYDR10 PO; +MASOPHEN325 M4 PO; +METO25 PO; +OCTAGAM 10% VIA20 ML IV; +ONDA4ODT MM; +PRED10 PO; +SPIRONOLACTONE50 MG PO
[2021-09-28 03:53] LABS: BASOPHILS ABSOLUTE AUTO 0.14 K/mm3 (0.00-0.23); BASOPHILS PERCENT AUTO 1 % (0-2); EOSINOPHILS ABSOLUTE AUTO 0.49 K/mm3 (0.00-0.68); EOSINOPHILS PERCENT AUTO 3 % (0-6); IMMATURE GRAN ABSOLUTE AUTO 0.58 K/mm3 (0.00-0.10); IMMATURE GRAN PERCENT AUTO 4 % (0-1); LYMPHOCYTES ABSOLUTE AUTO 1.43 K/mm3 (0.84-5.20); LYMPHOCYTES PERCENT AUTO 9 % (21-46); MONOCYTES ABSOLUTE AUTO 1.68 K/mm3 (0.16-1.47); MONOCYTES PERCENT AUTO 11 % (4-13); Mean Corpuscular HGB 25.1 pg (26.0-34.0); Mean Corpuscular HGB Conc 28.7 g/dL (31.5-36.5); Mean Corpuscular Volume 88 fL (80-100); NEUTROPHILS ABSOLUTE AUTO 11.33 K/mm3 (1.96-9.15); NEUTROPHILS PERCENT AUTO 73 % (41-73); NRBC Auto 0.6 /100 WBC (0.0-0.2); RDW Coefficient Variation 21.3 % (11.7-14.2); RDW Standard Deviation 65.7 fL (35.1-46.3); Red Blood Cell Count 1.95 M/mm3 (4.30-5.90); White Blood Cell Count 15.65 K/mm3 (4.00-11.30)
[2021-09-28 03:57] LABS: Hematocrit 17.1 % (37.0-53.0); Platelet Count 17 K/mm3 (150-400)
[2021-09-28 03:59] LABS: Hemoglobin 4.9 g/dL (13.5-17.5)
[2021-09-28 04:22] LABS: Alanine Aminotransfer (ALT/SGP 20 U/L (12-78); Albumin, Blood 3.6 g/dL (3.4-5.0); Albumin/Globulin Ratio 1.1 (0.8-1.8); Alk Phos 51 U/L (50-136); Anion Gap 8 mmol/L (6-16); Aspartate Aminotrans (AST/SGOT 16 U/L (12-37); Bilirubin, Total 0.4 mg/dL (0.1-1.0); Blood Urea Nitrogen 24 mg/dL (8-24); Bun/Creatinine Ratio 16.4 (12.0-20.0); CO2, Blood 23 mmol/L (21-32); Calcium, Blood 8.8 mg/dL (8.5-10.1); Chloride, Blood 106 mmol/L (98-108); Creatinine, Blood 1.46 mg/dL (0.60-1.20); Globulin, Blood 3.3 g/dL (2.2-4.0); Glomerular Filtration Rate 48 (60-); Glucose, Blood 208 mg/dL (70-99); Potassium, Blood 4.2 mmol/L (3.5-5.5); Sodium, Blood 137 mmol/L (136-145); Total Protein, Blood 6.9 g/dL (6.4-8.2); Troponin I <0.015 ng/mL (0.000-0.040)
[2021-09-28 04:37] LABS: Influenza A, PCR NEGATIVE (NEGATIVE); Influenza B, PCR NEGATIVE (NEGATIVE); Resp Syncytial Virus, PCR NEGATIVE (NEGATIVE); SARS-Cov-2 (COVID-19) PCR, MMC NEGATIVE (NEGATIVE)
[2021-09-28] MEDS ORDERED: PROBIOTIC1 EA13 PO (07:12)
[2021-09-28 15:31] LABS: BASOPHILS ABSOLUTE AUTO 0.17 K/mm3 (0.00-0.23); BASOPHILS PERCENT AUTO 1 % (0-2); EOSINOPHILS ABSOLUTE AUTO 0.54 K/mm3 (0.00-0.68); EOSINOPHILS PERCENT AUTO 4 % (0-6); Hematocrit 23.7 % (37.0-53.0); Hemoglobin 7.2 g/dL (13.5-17.5); IMMATURE GRAN ABSOLUTE AUTO 0.49 K/mm3 (0.00-0.10); IMMATURE GRAN PERCENT AUTO 3 % (0-1); LYMPHOCYTES ABSOLUTE AUTO 1.41 K/mm3 (0.84-5.20); LYMPHOCYTES PERCENT AUTO 10 % (21-46); MONOCYTES ABSOLUTE AUTO 1.72 K/mm3 (0.16-1.47); MONOCYTES PERCENT AUTO 12 % (4-13); Mean Corpuscular HGB 26.4 pg (26.0-34.0); Mean Corpuscular HGB Conc 30.4 g/dL (31.5-36.5); Mean Corpuscular Volume 87 fL (80-100); NEUTROPHILS ABSOLUTE AUTO 10.24 K/mm3 (1.96-9.15); NEUTROPHILS PERCENT AUTO 70 % (41-73); NRBC ABSOLUTE 0.12 K/mm3 (0.00-0.02); NRBC Auto 0.8 /100 WBC (0.0-0.2); RDW Coefficient Variation 18.5 % (11.7-14.2); RDW Standard Deviation 57.2 fL (35.1-46.3); Red Blood Cell Count 2.73 M/mm3 (4.30-5.90); White Blood Cell Count 14.57 K/mm3 (4.00-11.30)
[2021-09-28 16:00] LABS: Platelet Count 14 K/mm3 (150-400)
--- NOTE | 2021-09-28 17:58 | NUR ---
SHIFT SUMMARY PATIENT SITTING UP IN CHAIR EATING DINNER. PATIENT A&O X3. PATIENT AMBULATES TO BATHROOM SBA WITH WALKER. PATIENT USED CALL LIGHT APPROPRIATELY T/O SHIFT. PATIENT AWAITING PLACEMENT. NO SIGNIFICANT EVENTS T/O SHIFT. VSS. WILL CONTINUE TO MONITOR.
--- NOTE | 2021-09-28 18:00 | NUR ---
SHIFT SUMMARY PATIIENT RESTING IN BED. A&O X4. PATIENT AMBULATES TO RESTROOM INDEPENDENTLY. PATIENT SATING 97-99% ON 2L NC, HOWEVER WILL FREQUENTLY REMOVE NC. DENIES ANY DIZZYNESS OR SOB. THIS AM HGB 4.9, PLT 17 , TRANSFUSED 2 UNITS PRBC. LAST HGB 7.2 AND PLT 14. PATIENT STATED HE HAS BEEN HAVING BLACK STOOLS AT HOME. NO BM THIS SHIFT. ELEVATED BLOOD PRESSURES T/O SHIFT. MEDICATED PER OCT. BED IN LOW POSITION WITH CALL LIGHT IN REACH. WILL CONTINUE TO MONITOR.
[2021-09-28 21:18] LABS: Hematocrit 22.3 % (37.0-53.0); Hemoglobin 6.8 g/dL (13.5-17.5)
--- NOTE | 2021-09-29 04:58 | NUR ---
SHIFT SUMMARY: A&OX4, NO COMPLAINTS OF CHEST PAIN, SOB, OR DIZZINESS. 1PRBC UNIT ADMINISTERED FOR HGB 6.8. VITALS STABLE. NO ADVERSE REACTION TO BLLOE TRANSFUSION. PATIENT REMAINS WITH FULL BODY RASH AND SCATTERED PETECHIAE.
[2021-09-29 06:08] LABS: BASOPHILS ABSOLUTE AUTO 0.17 K/mm3 (0.00-0.23); BASOPHILS PERCENT AUTO 1 % (0-2); EOSINOPHILS ABSOLUTE AUTO 0.75 K/mm3 (0.00-0.68); EOSINOPHILS PERCENT AUTO 6 % (0-6); Hematocrit 26.7 % (37.0-53.0); Hemoglobin 8.3 g/dL (13.5-17.5); IMMATURE GRAN ABSOLUTE AUTO 0.53 K/mm3 (0.00-0.10); IMMATURE GRAN PERCENT AUTO 4 % (0-1); LYMPHOCYTES ABSOLUTE AUTO 1.39 K/mm3 (0.84-5.20); LYMPHOCYTES PERCENT AUTO 10 % (21-46); MONOCYTES ABSOLUTE AUTO 1.74 K/mm3 (0.16-1.47); MONOCYTES PERCENT AUTO 13 % (4-13); Mean Corpuscular HGB 26.6 pg (26.0-34.0); Mean Corpuscular HGB Conc 31.1 g/dL (31.5-36.5); Mean Corpuscular Volume 86 fL (80-100); NEUTROPHILS ABSOLUTE AUTO 8.93 K/mm3 (1.96-9.15); NEUTROPHILS PERCENT AUTO 66 % (41-73); NRBC ABSOLUTE 0.11 K/mm3 (0.00-0.02); NRBC Auto 0.8 /100 WBC (0.0-0.2); RDW Coefficient Variation 18.1 % (11.7-14.2); Red Blood Cell Count 3.12 M/mm3 (4.30-5.90); White Blood Cell Count 13.51 K/mm3 (4.00-11.30)
[2021-09-29 06:27] LABS: Platelet Count 21 K/mm3 (150-400)
[2021-09-29 14:09] LABS: Hematocrit 27.8 % (37.0-53.0); Hemoglobin 8.6 g/dL (13.5-17.5)
[2021-09-29 14:24] LABS: Anion Gap 7 mmol/L (6-16); Blood Urea Nitrogen 21 mg/dL (8-24); Bun/Creatinine Ratio 17.4 (12.0-20.0); CO2, Blood 30 mmol/L (21-32); Calcium, Blood 8.7 mg/dL (8.5-10.1); Chloride, Blood 103 mmol/L (98-108); Creatinine, Blood 1.21 mg/dL (0.60-1.20); Glomerular Filtration Rate >60 (60-); Glucose, Blood 124 mg/dL (70-99); Potassium, Blood 3.7 mmol/L (3.5-5.5); Sodium, Blood 140 mmol/L (136-145)
--- NOTE | 2021-09-29 18:34 | NUR ---
SHIFT SUMMARY A&OX4. INDEPENDENT IN ROOM. GI BLEED SCAN PERFORMED BY Otelic THIS AM. TOLERATED WELL. NO SIGNIFICANT FINDINGS. PATIENT SLEPT MOST OF SHIFT. NO COMPLAINTS OF PAIN, SOB, OR DIZZYNESS. PATIENT HAD A HARD BLACK BM. STOOL SAMPLE RESULTS STILL PENDING. BED IN LOW POSITION WITH ALL LIGHT IN REACH. WILL CONTINUE TO MONITOR.
--- NOTE | 2021-09-30 03:59 | NUR ---
SHIFT SUAMMRY A&OX4, FATIGUES PATIENT SLEPT MAJORITY OF THE SHIFT. REPORTS DECREASED ITCHING AND IMPROVEMENT OF RASH. VSS. NO SIGNIFICANT EVENTS OVER NIGHT. WCTM.
[2021-09-30 05:08] LABS: BASOPHILS ABSOLUTE AUTO 0.17 K/mm3 (0.00-0.23); BASOPHILS PERCENT AUTO 1 % (0-2); EOSINOPHILS PERCENT AUTO 8 % (0-6); Hematocrit 29.9 % (37.0-53.0); Hemoglobin 9.2 g/dL (13.5-17.5); IMMATURE GRAN ABSOLUTE AUTO 0.42 K/mm3 (0.00-0.10); IMMATURE GRAN PERCENT AUTO 3 % (0-1); LYMPHOCYTES ABSOLUTE AUTO 1.24 K/mm3 (0.84-5.20); LYMPHOCYTES PERCENT AUTO 9 % (21-46); MONOCYTES PERCENT AUTO 12 % (4-13); Mean Corpuscular HGB 26.3 pg (26.0-34.0); Mean Corpuscular HGB Conc 30.8 g/dL (31.5-36.5); Mean Corpuscular Volume 85 fL (80-100); NEUTROPHILS ABSOLUTE AUTO 9.23 K/mm3 (1.96-9.15); NEUTROPHILS PERCENT AUTO 67 % (41-73); NRBC ABSOLUTE 0.05 K/mm3 (0.00-0.02); NRBC Auto 0.4 /100 WBC (0.0-0.2); RDW Coefficient Variation 18.2 % (11.7-14.2); White Blood Cell Count 13.86 K/mm3 (4.00-11.30)
[2021-09-30 05:13] LABS: Platelet Count 22 K/mm3 (150-400)
[2021-09-30 13:38] LABS: Stool Occult Bld Immuno 1 Positive (NEGATIVE)
--- NOTE | 2021-09-30 15:04 | NUR ---
DISCHARGE PATIENT IS BEING DISCHARGED TODAY. HIS IV WAS REMOVED. BELONGINGS HAVE ALL BEEN RETURNED TO THE [facility]. PATIENTS DISCHARGE PAPERWORK IS COMPLETE AND THE PATIENT HAS SIGNED. (1500) PATIENT WAS EDUCATED ON HIS CONDITION, MEDICATION CHANGES, AND FOLLOW UP APPTS. HE UNDERSTANDS THAT HE SHOULD CALL WITH NEW OR WORSENING SYMPTOMS. PATIENT IS BEING ESCORTED IN WHEEL CHAIR DOWNSTAIRS WHERE HIS TRANSPORTATION IS WAITING.
== END 2021-09-30 15:06 | disposition home or self-care (01) | DRG 813 ==
LOC: ER 03:24 → MEDS 05:27
PROVIDERS: Emergency Medicine; Family Medicine; Hospitalist; Student in an Organized Health Care Education/Training Program; ADMIT Internal Medicine
PROC: 30233N1 Transfusion of Nonautologous Red Blood Cells into Peripheral Vein, Percutaneous Approach (ICD-10-PCS; principal; 2021-09-28)
DX: D69.3 Immune thrombocytopenic purpura (principal); R65.11 Systemic inflammatory response syndrome (SIRS) of non-infectious origin with acute organ dysfunction; N17.9 Acute kidney failure, unspecified; D64.9 Anemia, unspecified; E10.9 Type 1 diabetes mellitus without complications; D75.839 Thrombocytosis, unspecified; Z20.822 Contact with and (suspected) exposure to COVID-19; Z98.890 Other specified postprocedural states; Z87.891 Personal history of nicotine dependence; K21.9 Gastro-esophageal reflux disease without esophagitis; Z79.899 Other long term (current) drug therapy; Z79.4 Long term (current) use of insulin; Z53.29 Procedure and treatment not carried out because of patient's decision for other reasons
CPT/HCPCS: 0241U; 36415; 36430; 71045; 78278; 80048; 80053; 82274; 82947; 83605; 83880; 84484; 85014; 85018; 85025; 86850; 86900; 86901; 86923; 93005; 93010; 99285-25; A9270; A9560; C9113; J1815; J7030; J7050; P9016; P9035

== ENCOUNTER 2021-10-13 15:16 | Emergency (ER) | payer MEDICARE, OTHER ==
[~2021-10-13] VITALS: Ht 172.7 cm; Wt 98.0 kg
[~2021-10-13 15:16] MED LIST changes: +PROBIOTIC1 EA13 PO
[2021-10-13 16:23] LABS: BASOPHILS ABSOLUTE AUTO 0.23 K/mm3 (0.00-0.23); BASOPHILS PERCENT AUTO 2 % (0-2); EOSINOPHILS ABSOLUTE AUTO 0.32 K/mm3 (0.00-0.68); EOSINOPHILS PERCENT AUTO 2 % (0-6); Hemoglobin 9.7 g/dL (13.5-17.5); IMMATURE GRAN ABSOLUTE AUTO 0.15 K/mm3 (0.00-0.10); IMMATURE GRAN PERCENT AUTO 1 % (0-1); LYMPHOCYTES ABSOLUTE AUTO 1.25 K/mm3 (0.84-5.20); LYMPHOCYTES PERCENT AUTO 9 % (21-46); MONOCYTES ABSOLUTE AUTO 1.57 K/mm3 (0.16-1.47); MONOCYTES PERCENT AUTO 12 % (4-13); Mean Corpuscular HGB 24.6 pg (26.0-34.0); Mean Corpuscular HGB Conc 30.3 g/dL (31.5-36.5); Mean Corpuscular Volume 81 fL (80-100); NEUTROPHILS ABSOLUTE AUTO 10.11 K/mm3 (1.96-9.15); NEUTROPHILS PERCENT AUTO 74 % (41-73); RDW Coefficient Variation 17.4 % (11.7-14.2); Red Blood Cell Count 3.94 M/mm3 (4.30-5.90); White Blood Cell Count 13.63 K/mm3 (4.00-11.30)
[2021-10-13 16:30] LABS: Platelet Count 1 K/mm3 (150-400)
[2021-10-13 16:44] LABS: Albumin/Globulin Ratio 1.1 (0.8-1.8); Bilirubin, Total 0.3 mg/dL (0.1-1.0); Bun/Creatinine Ratio 17.4 (12.0-20.0); Calcium, Blood 8.9 mg/dL (8.5-10.1); Creatinine, Blood 1.55 mg/dL (0.60-1.20); Globulin, Blood 3.6 g/dL (2.2-4.0); Potassium, Blood 4.4 mmol/L (3.5-5.5); Total Protein, Blood 7.6 g/dL (6.4-8.2)
[2021-10-13] MEDS ORDERED: NPLATE125 MCG IM (18:02)
== END 2021-10-13 20:21 | disposition home or self-care (01) ==
LOC: ER 15:16
PROVIDERS: Physician Assistant
DX: K92.1 Melena (principal); D69.6 Thrombocytopenia, unspecified; D63.8 Anemia in other chronic diseases classified elsewhere; E10.9 Type 1 diabetes mellitus without complications; I10 Essential (primary) hypertension; Z79.899 Other long term (current) drug therapy; Z86.2 Personal history of diseases of the blood and blood-forming organs and certain disorders involving the immune mechanism; Z79.4 Long term (current) use of insulin
CPT/HCPCS: 36415; 36430; 80053; 82272; 85025; 86850; 86900; 86901; 96374; 99284-25; J2930; J7030; P9035

== ENCOUNTER 2021-10-15 05:24 | Inpatient (IN) | payer MEDICARE, OTHER ==
[~2021-10-15] VITALS: Ht 172.7 cm; Wt 98.0 kg
[~2021-10-15 05:24] MED LIST changes: +NPLATE125 MCG SC
[2021-10-15 06:10] LABS: BASOPHILS ABSOLUTE AUTO 0.15 K/mm3 (0.00-0.23); BASOPHILS PERCENT AUTO 1 % (0-2); EOSINOPHILS PERCENT AUTO 0 % (0-6); Hematocrit 22.5 % (37.0-53.0); Hemoglobin 6.8 g/dL (13.5-17.5); IMMATURE GRAN ABSOLUTE AUTO 1.17 K/mm3 (0.00-0.10); IMMATURE GRAN PERCENT AUTO 5 % (0-1); LYMPHOCYTES ABSOLUTE AUTO 1.53 K/mm3 (0.84-5.20); LYMPHOCYTES PERCENT AUTO 6 % (21-46); MONOCYTES ABSOLUTE AUTO 2.43 K/mm3 (0.16-1.47); MONOCYTES PERCENT AUTO 10 % (4-13); Mean Corpuscular HGB 24.3 pg (26.0-34.0); Mean Corpuscular HGB Conc 30.2 g/dL (31.5-36.5); Mean Corpuscular Volume 80 fL (80-100); NEUTROPHILS ABSOLUTE AUTO 19.01 K/mm3 (1.96-9.15); NEUTROPHILS PERCENT AUTO 78 % (41-73); NRBC ABSOLUTE 0.04 K/mm3 (0.00-0.02); NRBC Auto 0.2 /100 WBC (0.0-0.2); RDW Coefficient Variation 17.7 % (11.7-14.2); RDW Standard Deviation 52.3 fL (35.1-46.3); White Blood Cell Count 24.39 K/mm3 (4.00-11.30)
[2021-10-15 06:27] LABS: Alanine Aminotransfer (ALT/SGP 20 U/L (12-78); Albumin, Blood 3.7 g/dL (3.4-5.0); Albumin/Globulin Ratio 1.3 (0.8-1.8); Alk Phos 48 U/L (50-136); Anion Gap 6 mmol/L (6-16); Aspartate Aminotrans (AST/SGOT 11 U/L (12-37); Bilirubin, Total 0.3 mg/dL (0.1-1.0); Blood Urea Nitrogen 34 mg/dL (8-24); Bun/Creatinine Ratio 29.8 (12.0-20.0); CO2, Blood 22 mmol/L (21-32); Calcium, Blood 8.2 mg/dL (8.5-10.1); Chloride, Blood 110 mmol/L (98-108); Creatinine, Blood 1.14 mg/dL (0.60-1.20); Globulin, Blood 2.9 g/dL (2.2-4.0); Glomerular Filtration Rate >60 (60-); Glucose, Blood 214 mg/dL (70-99); Sodium, Blood 138 mmol/L (136-145); Total Protein, Blood 6.6 g/dL (6.4-8.2)
[2021-10-15 06:34] LABS: Platelet Count 1 K/mm3 (150-400)
[2021-10-15 13:23] LABS: Hematocrit 27.9 % (37.0-53.0); Hemoglobin 8.7 g/dL (13.5-17.5); Mean Corpuscular HGB 25.4 pg (26.0-34.0); Mean Corpuscular HGB Conc 31.2 g/dL (31.5-36.5); Mean Corpuscular Volume 82 fL (80-100); NRBC ABSOLUTE 0.07 K/mm3 (0.00-0.02); NRBC Auto 0.3 /100 WBC (0.0-0.2); RDW Coefficient Variation 17.2 % (11.7-14.2); RDW Standard Deviation 51.1 fL (35.1-46.3); Red Blood Cell Count 3.42 M/mm3 (4.30-5.90); White Blood Cell Count 21.35 K/mm3 (4.00-11.30)
[2021-10-15 13:39] LABS: Platelet Count 1 K/mm3 (150-400)
--- NOTE | 2021-10-15 17:10 | NUR ---
PATIENT ARRIVED TO UNIT FROM ED AT 9:30 AM. PATIENT IS AWKE,ALERT AND ORIENTED TIMES THREE. DENIES PAIN. PATIENT RECIEVED 2 UNITS OF BLOOD AND 2 UNITS OF PLATLETE. NO ACUTE DISTRESS NOTED. PATIENT WAS ENCOURAGE TO CALL FOR ASSISTANCE.
--- NOTE | 2021-10-15 21:37 | NUR ---
BG 135 PT HAS 50 UNITS IOF LANTUS ORDERED, PT HOME DOSE. PT BG 135 THIS EVENING. HE IS REFUSING A SNACK AT THIS TIME AND IS STILL FULL FROM DINNER. DR. CHAPPELL CALLED AND NOTIFIED. SHE WOULD LIKE PT TO RECEIVE 30 UNITS LANTUS INSTEAD OF 50 TONIGHT.
[2021-10-16 04:30] LABS: Hematocrit 26.1 % (37.0-53.0); Mean Corpuscular HGB 25.4 pg (26.0-34.0); Mean Corpuscular HGB Conc 30.7 g/dL (31.5-36.5); Mean Corpuscular Volume 83 fL (80-100); NRBC ABSOLUTE 0.06 K/mm3 (0.00-0.02); NRBC Auto 0.4 /100 WBC (0.0-0.2); RDW Coefficient Variation 17.3 % (11.7-14.2); RDW Standard Deviation 51.8 fL (35.1-46.3); Red Blood Cell Count 3.15 M/mm3 (4.30-5.90); White Blood Cell Count 14.21 K/mm3 (4.00-11.30)
[2021-10-16 04:42] LABS: Platelet Count 2 K/mm3 (150-400)
[2021-10-16 04:51] LABS: Anion Gap 4 mmol/L (6-16); Blood Urea Nitrogen 25 mg/dL (8-24); Bun/Creatinine Ratio 21.2 (12.0-20.0); CO2, Blood 28 mmol/L (21-32); Calcium, Blood 8.5 mg/dL (8.5-10.1); Chloride, Blood 108 mmol/L (98-108); Creatinine, Blood 1.18 mg/dL (0.60-1.20); Glomerular Filtration Rate >60 (60-); Glucose, Blood 130 mg/dL (70-99); Potassium, Blood 4.1 mmol/L (3.5-5.5); Sodium, Blood 140 mmol/L (136-145)
--- NOTE | 2021-10-16 06:30 | NUR ---
PT REPORTS BLOODY STOOLS OVERNIGHT X1. PT STATES TARRY IN APPEARANCE. PT NOTIFIED NURSE THIS AM. PT INDEPENDENT IN THE ROOM AND DID NOT REPORT WHEN THIS OCCURED, SO THIS RN UNABLE TO ASSESS. HGB IS STABLE.
--- NOTE | 2021-10-16 17:09 | NUR ---
PATIENT IS AWAKE,ALERT AND ORIENTED TIMES THREEE. DENIES PAIN. PATIENT COMPLETED 1 UNIT OF PLATELET,NO ADVERSE REACTION NOTED. PATIENT HAD ONE EPISODE OF BLOODY STOOL, MD MADE AWARE.NO NEW ORDER NOTED. WILL CONTINUE TO MONITOR CLOSELY.
--- NOTE | 2021-10-17 04:12 | NUR ---
ROCK CUTTER SUMMARY ADMITTED FOR ACUTE MANAGEMENT OF CHRONIC ITP. PT IS FULL CODE. PLAN FOR DC TODAY IF NO BLOODY STOOLS. PT CBG WAS 157, 50 UNITS OF LANTUS HELD AND HOSPITALIST CONTACTED. ONE TIME ORDER FOR 10 UNITS OBTAINED AND ADMINISTERED. PT HAS BEEN INDEPENDENT IN THE ROOM. NO OTHER CONCERNS.
[2021-10-17 09:07] LABS: Hematocrit 27.2 % (37.0-53.0); Hemoglobin 8.4 g/dL (13.5-17.5); Mean Corpuscular HGB 25.5 pg (26.0-34.0); Mean Corpuscular HGB Conc 30.9 g/dL (31.5-36.5); Mean Corpuscular Volume 83 fL (80-100); NRBC ABSOLUTE 0.04 K/mm3 (0.00-0.02); NRBC Auto 0.3 /100 WBC (0.0-0.2); RDW Coefficient Variation 17.5 % (11.7-14.2); RDW Standard Deviation 53.7 fL (35.1-46.3); Red Blood Cell Count 3.29 M/mm3 (4.30-5.90); White Blood Cell Count 14.52 K/mm3 (4.00-11.30)
[2021-10-17 09:14] LABS: Platelet Count 6 K/mm3 (150-400)
--- NOTE | 2021-10-17 09:19 | NUR ---
CALLED CRITICAL PLATELET LEVEL OF [address] BEAR. NO ORDERS RECEIVED AT THIS TIME.
--- NOTE | 2021-10-17 12:16 | NUR ---
PLATELET TRANSFUSION STARTED @ 1215. VERIFIED BLOOD CONSENT WAS SIGNED THIS ADMISSION. WILL MONITOR.
--- NOTE | 2021-10-17 13:55 | NUR ---
DISCHARGE INSTRUCTIONS DISCUSSED WITH PATIENT. VERBALIZED UNDERSTANDING.
--- NOTE | 2021-10-17 14:02 | NUR ---
PATIENT DISCHARGE HOME PER WHEELCHAIR PER PERSONAL VEHICLE WITH SPOUSE. AAO X 4. NO COMPLAINTS VOICED AT DISCHARGE.
== END 2021-10-17 14:09 | disposition home or self-care (01) | DRG 813 ==
LOC: ER 05:24 → MEDS 05:25
PROVIDERS: Internal Medicine; Student in an Organized Health Care Education/Training Program; ADMIT Internal Medicine
PROC: 30233R1 Transfusion of Nonautologous Platelets into Peripheral Vein, Percutaneous Approach (ICD-10-PCS; principal; 2021-10-16)
PROC: 30233N1 Transfusion of Nonautologous Red Blood Cells into Peripheral Vein, Percutaneous Approach (ICD-10-PCS; 2021-10-16)
DX: D69.3 Immune thrombocytopenic purpura (principal); D62 Acute posthemorrhagic anemia; K92.2 Gastrointestinal hemorrhage, unspecified; I10 Essential (primary) hypertension; E10.9 Type 1 diabetes mellitus without complications; Z53.29 Procedure and treatment not carried out because of patient's decision for other reasons; Z91.14 Patient's other noncompliance with medication regimen; Z90.89 Acquired absence of other organs; Z87.891 Personal history of nicotine dependence; Z79.4 Long term (current) use of insulin; Z79.899 Other long term (current) drug therapy
CPT/HCPCS: 36415; 36430; 80048; 80053; 82947; 85025; 85027; 86850; 86900; 86901; 86923; 99285; A9270; G0378; J1815; J7030; J7050; P9016; P9035

== ENCOUNTER 2021-10-22 16:07 | Inpatient (IN) | payer MEDICARE, OTHER ==
[~2021-10-22] VITALS: Ht 172.7 cm; Wt 94.1 kg
[2021-10-22 16:42] LABS: Hematocrit 25.4 % (37.0-53.0); Hemoglobin 7.3 g/dL (13.5-17.5); Mean Corpuscular HGB 23.7 pg (26.0-34.0); Mean Corpuscular HGB Conc 28.7 g/dL (31.5-36.5); Mean Corpuscular Volume 83 fL (80-100); NRBC ABSOLUTE 0.12 K/mm3 (0.00-0.02); NRBC Auto 0.7 /100 WBC (0.0-0.2); RDW Coefficient Variation 17.9 % (11.7-14.2); RDW Standard Deviation 52.4 fL (35.1-46.3); Red Blood Cell Count 3.08 M/mm3 (4.30-5.90); White Blood Cell Count 18.28 K/mm3 (4.00-11.30)
[2021-10-22 16:47] LABS: Platelet Count 1 K/mm3 (150-400)
[2021-10-22 17:05] LABS: Albumin, Blood 3.8 g/dL (3.4-5.0); Albumin/Globulin Ratio 1.2 (0.8-1.8); Bilirubin, Total 0.4 mg/dL (0.1-1.0); Bun/Creatinine Ratio 14.8 (12.0-20.0); Calcium, Blood 8.9 mg/dL (8.5-10.1); Creatinine, Blood 1.28 mg/dL (0.60-1.20); Globulin, Blood 3.1 g/dL (2.2-4.0); Total Protein, Blood 6.9 g/dL (6.4-8.2)
[2021-10-22 17:16] LABS: BAND PERCENT MAN 4 % (0-8); BASOPHILS PERCENT MAN 0 % (0-2); EOSINOPHILS ABSOLUTE MAN 0.91 K/mm3 (0.00-0.68); EOSINOPHILS PERCENT MAN 5 % (0-6); LYMPHOCYTES ABSOLUTE MAN 1.46 K/mm3 (0.84-5.20); LYMPHOCYTES PERCENT MAN 8 % (21-46); METAMYELOCYTE ABSOLUTE MAN 0.54 K/mm3 (0.00-0.00); METAMYELOCYTE PERCENT MAN 3 % (0-0); MONOCYTES ABSOLUTE MAN 1.64 K/mm3 (0.16-1.47); MONOCYTES PERCENT MAN 9 % (4-13); MYELOCYTE ABSOLUTE MAN 0.36 K/mm3 (0.00-0.00); MYELOCYTE PERCENT MAN 2 % (0-0); NEUTROPHILS ABSOLUTE MAN 13.34 K/mm3 (1.96-9.15); SEG NEUTROPHILS PERCENT MAN 69 % (41-73); TOTAL CELLS COUNTED 100
[2021-10-22 20:54] LABS: Hematocrit 27.1 % (37.0-53.0); Hemoglobin 8.2 g/dL (13.5-17.5)
[2021-10-23 04:54] LABS: Hemoglobin 8.1 g/dL (13.5-17.5); Mean Corpuscular HGB 25.2 pg (26.0-34.0); Mean Corpuscular HGB Conc 27.9 g/dL (31.5-36.5); NRBC ABSOLUTE 0.18 K/mm3 (0.00-0.02); NRBC Auto 1.1 /100 WBC (0.0-0.2); RDW Coefficient Variation 17.9 % (11.7-14.2); RDW Standard Deviation 59.4 fL (35.1-46.3); Red Blood Cell Count 3.22 M/mm3 (4.30-5.90); White Blood Cell Count 16.77 K/mm3 (4.00-11.30)
[2021-10-23 04:57] LABS: Mean Corpuscular Volume 90 fL (80-100)
[2021-10-23 04:59] LABS: Platelet Count 5 K/mm3 (150-400)
[2021-10-23 06:15] LABS: BAND PERCENT MAN 2 % (0-8); BASOPHILS PERCENT MAN 0 % (0-2); EOSINOPHILS PERCENT MAN 3 % (0-6); LYMPHOCYTES PERCENT MAN 6 % (21-46); MONOCYTES ABSOLUTE MAN 1.34 K/mm3 (0.16-1.47); MONOCYTES PERCENT MAN 8 % (4-13); MYELOCYTE PERCENT MAN 3 % (0-0); NEUTROPHILS ABSOLUTE MAN 13.41 K/mm3 (1.96-9.15); SEG NEUTROPHILS PERCENT MAN 78 % (41-73); TOTAL CELLS COUNTED 100
== END 2021-10-23 13:46 | disposition home or self-care (01) | DRG 813 ==
LOC: ER 16:07 → MEDS 23:45 → ER 10-23 00:59 → MEDS 10-23 01:00 → ENPENDDIS 10-23 11:51 → MEDS 10-23 13:46
PROVIDERS: Physician Assistant; ADMIT Internal Medicine
PROC: 30233R1 Transfusion of Nonautologous Platelets into Peripheral Vein, Percutaneous Approach (ICD-10-PCS; principal; 2021-10-22)
DX: D69.3 Immune thrombocytopenic purpura (principal); K92.1 Melena; N17.9 Acute kidney failure, unspecified; K21.9 Gastro-esophageal reflux disease without esophagitis; N18.30 Chronic kidney disease, stage 3 unspecified; E10.22 Type 1 diabetes mellitus with diabetic chronic kidney disease; I12.9 Hypertensive chronic kidney disease with stage 1 through stage 4 chronic kidney disease, or unspecified chronic kidney disease; Z87.891 Personal history of nicotine dependence; Z90.89 Acquired absence of other organs; Z79.4 Long term (current) use of insulin; Z79.899 Other long term (current) drug therapy
CPT/HCPCS: 36415; 36430; 80053; 82947; 85014; 85018; 85025; 86850; 86900; 86901; 86923; 96374; 99285-25; A9270; C9113; J1815; J7030; J7040; P9016; P9035; P9053

== ENCOUNTER 2021-10-24 17:32 | Observation (INO) | payer MEDICARE, OTHER ==
[~2021-10-24] VITALS: Ht 172.7 cm; Wt 92.5 kg
[2021-10-24 19:55] LABS: Hematocrit 22.2 % (37.0-53.0); Hemoglobin 6.8 g/dL (13.5-17.5); Mean Corpuscular HGB Conc 30.6 g/dL (31.5-36.5); Mean Corpuscular Volume 82 fL (80-100); NRBC Auto 1.3 /100 WBC (0.0-0.2); RDW Coefficient Variation 18.2 % (11.7-14.2); RDW Standard Deviation 53.6 fL (35.1-46.3); Red Blood Cell Count 2.72 M/mm3 (4.30-5.90); White Blood Cell Count 15.61 K/mm3 (4.00-11.30)
[2021-10-24 20:09] LABS: Platelet Count 12 K/mm3 (150-400)
[2021-10-24 20:14] LABS: BAND PERCENT MAN 2 % (0-8); BASOPHILS PERCENT MAN 0 % (0-2); EOSINOPHILS ABSOLUTE MAN 0.78 K/mm3 (0.00-0.68); EOSINOPHILS PERCENT MAN 5 % (0-6); LYMPHOCYTES ABSOLUTE MAN 0.93 K/mm3 (0.84-5.20); LYMPHOCYTES PERCENT MAN 6 % (21-46); MONOCYTES ABSOLUTE MAN 0.93 K/mm3 (0.16-1.47); MONOCYTES PERCENT MAN 6 % (4-13); MYELOCYTE ABSOLUTE MAN 0.15 K/mm3 (0.00-0.00); MYELOCYTE PERCENT MAN 1 % (0-0); SEG NEUTROPHILS PERCENT MAN 80 % (41-73); TOTAL CELLS COUNTED 100
[2021-10-25 00:10] LABS: Hematocrit 25.3 % (37.0-53.0); Hemoglobin 7.8 g/dL (13.5-17.5); Mean Corpuscular HGB 25.3 pg (26.0-34.0); Mean Corpuscular HGB Conc 30.8 g/dL (31.5-36.5); Mean Corpuscular Volume 82 fL (80-100); NRBC ABSOLUTE 0.25 K/mm3 (0.00-0.02); NRBC Auto 1.6 /100 WBC (0.0-0.2); RDW Coefficient Variation 17.6 % (11.7-14.2); RDW Standard Deviation 51.9 fL (35.1-46.3); Red Blood Cell Count 3.08 M/mm3 (4.30-5.90)
[2021-10-25 00:13] LABS: Platelet Count 1 K/mm3 (150-400)
--- NOTE | 2021-10-25 03:24 | NUR ---
ADMIT NOTE 66 YR OLD MALE RE ADMITTED TO FLOOR FROM THE ED WITH THROMBOCYTOPENIA. ED RN REPORTED PT WAS AT HIS MD OFFICE, WAS SENT TO A CLINIC FOR PRBC, BUT CLINIC WAS CLOSED, SO HE WAS TRANSFERRED TO [facility] FOR PRBC. WHEN HE RECEIVED PRBC, PLATELETS WERE LOW, SO HE WAS ADMITTED FOR PLATELETS ADMIN, BUT AT THIS TIME THE HOSPITAL IS WAITING FOR MORE PLATELETS TO BE DELIVERED. PT ALERT AND ORIENTED. CALL LIGHT IN REACH. INSTRUCTED TO AVOID ALL SHARP OBJECTS. DENIED PAIN OR LOSS OF FEELING.
[2021-10-25 05:03] LABS: Hematocrit 26.7 % (37.0-53.0); Mean Corpuscular HGB 25.2 pg (26.0-34.0); Mean Corpuscular Volume 84 fL (80-100); NRBC ABSOLUTE 0.17 K/mm3 (0.00-0.02); NRBC Auto 1.1 /100 WBC (0.0-0.2); RDW Coefficient Variation 17.7 % (11.7-14.2); RDW Standard Deviation 53.2 fL (35.1-46.3); Red Blood Cell Count 3.18 M/mm3 (4.30-5.90); White Blood Cell Count 15.15 K/mm3 (4.00-11.30)
[2021-10-25 05:19] LABS: Platelet Count 1 K/mm3 (150-400)
--- NOTE | 2021-10-25 06:26 | NUR ---
CALL PLACED TO LAB/BLOOD BANK. STAFF VOICED THAT THEY HAD ORDERED "2 MORE BAGS OF PLATELETS", (ONE WHICH HE AGREES TO HOLD FOR PT), BUT WERE WAITING FOR THEIR ARRIVAL. PT ASYMPTOMATIC. CALL LIGHT IN REACH
--- NOTE | 2021-10-25 11:04 | NUR ---
SPOKE WITH BLOOD BANK VERIFYING PLATELETS ARE NOT YET AVAILABLE FOR THE PATIENT.
--- NOTE | 2021-10-25 11:15 | NUR ---
SPOKE WITH DR. HUBBARD ABOUT PLATELETS NOT BEING AVAILABLE STILL FOR THE PATIENT. RECEIVED A VERBAL ORDER TO D/C THE PLATELET TRANSFUSION DUE TO LIKELY REFERRING PATIENT FOR A SPLENECTOMY AT ANOTHER FACILITY. NO OTHER ORDERS RECEIVED AT THIS TIME.
--- NOTE | 2021-10-25 12:38 | NUR ---
PATIENT INFORMED THAT THE CHARGE NURSE IS WORKING ON HIS D/C PAPERWORK AND IT MAY BE UP TO AN HOUR BEFORE IT'S COMPLETE.
--- NOTE | 2021-10-25 12:57 | NUR ---
DISCHARGE INSTRUCTIONS DISCUSSED WITH PATIENT AND SPOUSE. VERBALIZED UNDERSTANDING.
== END 2021-10-25 13:02 | disposition home or self-care (01) ==
LOC: ER 17:32 → MEDS 17:33
PROVIDERS: Student in an Organized Health Care Education/Training Program; ADMIT Internal Medicine
DX: D69.3 Immune thrombocytopenic purpura (principal); D50.0 Iron deficiency anemia secondary to blood loss (chronic); K92.1 Melena; E11.9 Type 2 diabetes mellitus without complications; I10 Essential (primary) hypertension; Z87.891 Personal history of nicotine dependence
CPT/HCPCS: 36415; 71045; 82947; 85025; 85027; 86850; 86900; 86901; 86923; A9270; J1815; J7030; P9016; P9035

== ENCOUNTER 2021-10-27 09:39 | Day surgery (SDC) | payer MEDICARE, OTHER ==
[2021-10-26 18:16] LABS: BASOPHILS ABSOLUTE AUTO 0.21 K/mm3 (0.00-0.23); BASOPHILS PERCENT AUTO 2 % (0-2); EOSINOPHILS ABSOLUTE AUTO 0.43 K/mm3 (0.00-0.68); EOSINOPHILS PERCENT AUTO 3 % (0-6); Hematocrit 25.7 % (37.0-53.0); Hemoglobin 7.6 g/dL (13.5-17.5); IMMATURE GRAN ABSOLUTE AUTO 0.67 K/mm3 (0.00-0.10); IMMATURE GRAN PERCENT AUTO 5 % (0-1); LYMPHOCYTES ABSOLUTE AUTO 1.11 K/mm3 (0.84-5.20); LYMPHOCYTES PERCENT AUTO 8 % (21-46); MONOCYTES ABSOLUTE AUTO 1.59 K/mm3 (0.16-1.47); MONOCYTES PERCENT AUTO 11 % (4-13); Mean Corpuscular HGB 25.5 pg (26.0-34.0); Mean Corpuscular HGB Conc 29.6 g/dL (31.5-36.5); Mean Corpuscular Volume 86 fL (80-100); NEUTROPHILS ABSOLUTE AUTO 10.43 K/mm3 (1.96-9.15); NEUTROPHILS PERCENT AUTO 72 % (41-73); NRBC ABSOLUTE 0.12 K/mm3 (0.00-0.02); NRBC Auto 0.8 /100 WBC (0.0-0.2); RDW Coefficient Variation 18.6 % (11.7-14.2); RDW Standard Deviation 57.1 fL (35.1-46.3); Red Blood Cell Count 2.98 M/mm3 (4.30-5.90); White Blood Cell Count 14.44 K/mm3 (4.00-11.30)
[2021-10-26 18:30] LABS: Platelet Count 1 K/mm3 (150-400)
== END 2021-10-27 11:58 | disposition home or self-care (01) ==
LOC: ATC 09:39 → EDSTATUS 09:40 → ATC 11:58
PROVIDERS: Internal Medicine Hematology & Oncology
DX: D69.6 Thrombocytopenia, unspecified (principal)
CPT/HCPCS: 36415; 85025; J7050; P9035

== ENCOUNTER 2021-11-30 17:56 | Inpatient (IN) | payer MEDICARE, OTHER ==
[~2021-11-30] VITALS: Ht 170.2 cm; Wt 90.8 kg
[2021-11-30 18:28] LABS: Hematocrit 36.9 % (37.0-53.0); Hemoglobin 10.3 g/dL (13.5-17.5); Mean Corpuscular HGB 23.6 pg (26.0-34.0); Mean Corpuscular HGB Conc 27.9 g/dL (31.5-36.5); Mean Corpuscular Volume 84 fL (80-100); Platelet Count 363 K/mm3 (150-400); RDW Coefficient Variation 20.3 % (11.7-14.2); RDW Standard Deviation 62.4 fL (35.1-46.3); Red Blood Cell Count 4.37 M/mm3 (4.30-5.90)
[2021-11-30 18:36] LABS: White Blood Cell Count 30.09 K/mm3 (4.00-11.30)
[2021-11-30 18:44] LABS: Alanine Aminotransfer (ALT/SGP 21 U/L (12-78); Albumin, Blood 3.6 g/dL (3.4-5.0); Albumin/Globulin Ratio 0.8 (0.8-1.8); Alk Phos 77 U/L (50-136); Anion Gap 5 mmol/L (6-16); Aspartate Aminotrans (AST/SGOT 20 U/L (12-37); Bilirubin, Total 0.3 mg/dL (0.1-1.0); Blood Urea Nitrogen 14 mg/dL (8-24); CO2, Blood 24 mmol/L (21-32); Calcium, Blood 9.5 mg/dL (8.5-10.1); Chloride, Blood 107 mmol/L (98-108); Creatinine, Blood 0.94 mg/dL (0.60-1.20); Globulin, Blood 4.5 g/dL (2.2-4.0); Glomerular Filtration Rate >60 (60-); Glucose, Blood 131 mg/dL (70-99); Sodium, Blood 136 mmol/L (136-145); Total Protein, Blood 8.1 g/dL (6.4-8.2)
[2021-11-30 18:47] LABS: EOSINOPHILS PERCENT MAN 0 % (0-6); LYMPHOCYTES PERCENT MAN 5 % (21-46); TOTAL CELLS COUNTED 100
[2021-11-30 18:52] LABS: BASOPHILS PERCENT MAN 0 % (0-2); METAMYELOCYTE PERCENT MAN 1 % (0-0); MONOCYTES PERCENT MAN 10 % (4-13); MYELOCYTE PERCENT MAN 3 % (0-0); NEUTROPHILS ABSOLUTE MAN 24.37 K/mm3 (1.96-9.15); SEG NEUTROPHILS PERCENT MAN 81 % (41-73)
[2021-11-30 18:54] LABS: Source, Urine Clean Catch
[2021-11-30 19:01] LABS: Bilirubin, Urine Neg (Neg); Blood, Urine Neg (Neg); Glucose Qualitative, Urine Neg (Neg); Ketones, Urine Neg (Neg); Leukocyte Esterase, Urine Neg (Neg); Nitrite, Urine Neg (Neg); Protein, Urine 3+ (Neg); Urobilinogen, Urine NORM (Normal)
[2021-11-30] MEDS ORDERED: ATOR20 PO (19:04)
[2021-11-30] MEDS ORDERED: AMOCLA875 PO (19:04)
[2021-11-30] MEDS ORDERED: Acetaminophen650 M1 PO (19:04)
[2021-11-30] MEDS ORDERED: Carvedilol12.5 MG PO (19:06)
[2021-11-30] MEDS ORDERED: DOPTELET20 MG PO (19:06)
[2021-11-30] MEDS ORDERED: INSULANI SC (19:07)
[2021-11-30] MEDS ORDERED: OXYC5 PO (19:08)
[2021-11-30] MEDS ORDERED: METO5A PO (19:08)
[2021-11-30] MEDS ORDERED: MYCO250 PO (19:08)
[2021-11-30] MEDS ORDERED: INSULIN LI100 UNIT/8 SC (19:11)
[2021-11-30] MEDS ORDERED: XYZAL5 MG PO (19:12)
[2021-11-30] MEDS ORDERED: NPLATE SC (19:13)
[2021-11-30] MEDS ORDERED: MIRALAX17 GM PO (19:14)
[2021-11-30 19:21] LABS: Base Excess Venous 1.8 mmol/L; Bicarbonate Venous 25.6 mmol/L (24.0-30.0); PCO2 Venous 40.4 mmHg (38-42); PO2 Venous 40.4 mmHg (38-42); pH Blood Venous 7.42 (7.34-7.37)
[2021-11-30 19:37] LABS: Appearance, Urine Clear (Clear); Color, Urine Yellow (P-Yellow)
[2021-11-30 19:38] LABS: Bacteria Few /hpf; Red Blood Cells, Urine 0-2 /hpf (0-2); Squamous Epithelial Cells Rare /hpf (Few)
[2021-12-01 04:45] LABS: Hematocrit 31.5 % (37.0-53.0); Hemoglobin 8.9 g/dL (13.5-17.5); Mean Corpuscular HGB 23.8 pg (26.0-34.0); Mean Corpuscular HGB Conc 28.3 g/dL (31.5-36.5); Mean Corpuscular Volume 84 fL (80-100); Platelet Count 109 K/mm3 (150-400); RDW Standard Deviation 61.8 fL (35.1-46.3); Red Blood Cell Count 3.74 M/mm3 (4.30-5.90); White Blood Cell Count 38.58 K/mm3 (4.00-11.30)
[2021-12-01 05:10] LABS: Anion Gap 7 mmol/L (6-16); Blood Urea Nitrogen 11 mg/dL (8-24); Bun/Creatinine Ratio 12.2 (12.0-20.0); CO2, Blood 24 mmol/L (21-32); Calcium, Blood 8.8 mg/dL (8.5-10.1); Chloride, Blood 105 mmol/L (98-108); Glomerular Filtration Rate >60 (60-); Glucose, Blood 153 mg/dL (70-99); Potassium, Blood 4.1 mmol/L (3.5-5.5); Sodium, Blood 136 mmol/L (136-145)
--- NOTE | 2021-12-01 06:45 | NUR ---
T/F AND SUMMARY: REPORT RECIEVED FROM RODY, FINANCE ADVISOR AND PT T/F TO ROOM 306 VIA NINI W/ AT BEDSIDE AT 2300. HE'S A/OX4, WAS ORIENTED TO ROOM AND CALL SYSTEM AND CALLS APPROPRIATELY TO SPECIFY NEEDS. HE'S ON BEDREST AT THIS TIME BUT IS ABLE TO GET SELF TO EOB TO USE URINAL INDEPENDENTLY. HE'S BEEN NPO FOR POSSIBLE ABSCESS DRAINAGE S/P SPLENECTOMY AT [facility] A FEW WEEKS AGO. DRAINAGE TUBE WAS REMOVED YESTERDAY W/WELL SEALED OFF HOLE TO HEALING L.POSTERIOR SITE OBSERVED. HE ALSO HAS HEALING GRANULATING TISSUE AT PREVIOUS INCISION LINE TO LUQ OF ABDO, DX INTACT AND NO DRAINAGE NOTED. PHOTOS STILL NEED TAKEN D/T STAFF HAVING NO ACCESS TO A CAMERA, WILL ENSURE DAY STAFF IS AWARE. HE REPORTED PAIN TO THIS ABDO REGION T/O NOCTE W/FENTANYL RECIEVED FOR GOOD EFFECT. HE ALSO HAD TYLENOL FOR RELIEF ALLEN AND LOW GRADE FEVER. ATIVAN WAS PROVIDED WHEN ZOFRAN WAS UNAVAILABLE AND REGLAN PRN WAS ADDED TO REGIMEN. HE'S BEEN S.TACH MOST OF SHIFT ON TELEMETRY W/HR 90'S-100'S BPM. IV ABX RECIEVED AND LR INFUSES. NO ACUTE CHANGES, VSS/AFEBRILE. WCTM AND REPORT TO DAY RN.
[2021-12-01 12:17] LABS: International Normalized Ratio 1.12; Prothrombin Time Results 11.7 Sec (9.7-11.5)
--- NOTE | 2021-12-01 17:57 | NUR ---
END OF SHIFT SUMMARY: Pt AOx4, this morning pt c/o nausea/pain no vomiting observed. PRN Reglan & Ativan effective for s/sx. Tele ordered, SCDs on. Left Medical at 1330 to have drain placed in abd. Returned to Medical, dressing over abscess CDI, urosil drain in place, moderate brown drainage observed. Pt denies pain/discomfort at this time. Tolerating oral intake, Zoysn ABX given BID this shift. VSS, CBG WNL no SSI indicated.
--- NOTE | 2021-12-02 05:19 | NUR ---
SUMMARY PT HAD NO NEW ISSUES NOTED. PT DRAIN IS DRAINING WELL. PT DISCOMFORT TX PER EMAR W/ RELIEF. PT WAS ABLE TO SLEEP DURING SHIFT. PT CURRENTLY SLEEPING IN NO DISTRESS. CALL LIGHT IN REACH.
--- NOTE | 2021-12-02 06:55 | NUR ---
recvd report from previous RN, pt sleeping in bed, bed in lowest position, call light within reach, bed rails up x 2.
--- NOTE | 2021-12-02 08:04 | NUR ---
pt sitting up in chair, a/o x 4, denies pain in the abdomen
[2021-12-02 09:37] LABS: BASOPHILS ABSOLUTE AUTO 0.17 K/mm3 (0.00-0.23); BASOPHILS PERCENT AUTO 1 % (0-2); EOSINOPHILS ABSOLUTE AUTO 0.24 K/mm3 (0.00-0.68); EOSINOPHILS PERCENT AUTO 1 % (0-6); IMMATURE GRAN ABSOLUTE AUTO 0.17 K/mm3 (0.00-0.10); IMMATURE GRAN PERCENT AUTO 1 % (0-1); LYMPHOCYTES ABSOLUTE AUTO 1.23 K/mm3 (0.84-5.20); LYMPHOCYTES PERCENT AUTO 6 % (21-46); MONOCYTES ABSOLUTE AUTO 2.83 K/mm3 (0.16-1.47); MONOCYTES PERCENT AUTO 15 % (4-13); Mean Corpuscular HGB 24.4 pg (26.0-34.0); Mean Corpuscular HGB Conc 28.6 g/dL (31.5-36.5); Mean Corpuscular Volume 85 fL (80-100); NEUTROPHILS ABSOLUTE AUTO 14.83 K/mm3 (1.96-9.15); NEUTROPHILS PERCENT AUTO 76 % (41-73); RDW Coefficient Variation 19.9 % (11.7-14.2); RDW Standard Deviation 62.3 fL (35.1-46.3); Red Blood Cell Count 3.28 M/mm3 (4.30-5.90); White Blood Cell Count 19.47 K/mm3 (4.00-11.30)
--- NOTE | 2021-12-02 09:40 | NUR ---
recvd critical low platelet of 14 from Mckenzie in lab. 1000-notified Dr Monson. recvd orders to monitor, stop any ordered lovenox or heparin. Pt does not have either ordered.
[2021-12-02 09:57] LABS: Platelet Count 14 K/mm3 (150-400)
--- NOTE | 2021-12-02 12:42 | NUR ---
PT'S VISITING WITH PATIENT. THIS RN PROVIDED ANSWERS FOR PT AND ABOUT DRAIN PLACEMENT PROCEDURE YESTERDAY
--- NOTE | 2021-12-02 17:37 | NUR ---
shift summary: a/o x 4, pleasant/cooperative, vss with no acute changes. pt visited with with for >3 hr this shift. Pt and spoke with Dr. Monson and were notified of update on status, labs, MRSA+ positive findings in abscess material necessetating contact precautions, medication changes. Pt and state understanding of care plan. Pt's will bring pt's home med for platelet control tomorrow. Pt remained independent in room. Drain place yesterday patent and draining greenish-brown abscess material, stringy mucus-like appearance approx 110 ml emptied this shift. Dressing at drain site and old drain site c/d/ WNL. Pt tolerated po intake with no n/v. Pt rates pain abdomen at 4-5/10 on reassessment of analgesia per MAR. Pt voiding this shift, BM x 1 this shift.
--- NOTE | 2021-12-03 04:34 | NUR ---
SHIFT SUMMARY A/OX4 AND IND IN RM. VSS. URESIL DRAINING THICK BROWN DRAINAGE, BOWEL TONES ACTIVE. VOIDING WELL. MEDICATED PER EMAR FOR PAIN WITH PO PAIN MEDICATION. BENADRYL ORDERED BY MD FOR SLEEP AND ITCHING, APPEARED TO HELP PT. PT PLEASANT AND COOPERATIVE WITH CARE. PT STATES WILL BRING IN MEDICATION TO HELP WITH PLATELET COUNT IN AM. WILL CONTINUE TO MONITOR AND REPORT TO ONCOMING RN.
[2021-12-03 04:48] LABS: BASOPHILS ABSOLUTE AUTO 0.16 K/mm3 (0.00-0.23); BASOPHILS PERCENT AUTO 1 % (0-2); EOSINOPHILS ABSOLUTE AUTO 0.58 K/mm3 (0.00-0.68); EOSINOPHILS PERCENT AUTO 4 % (0-6); Hematocrit 28.3 % (37.0-53.0); IMMATURE GRAN PERCENT AUTO 1 % (0-1); LYMPHOCYTES ABSOLUTE AUTO 1.27 K/mm3 (0.84-5.20); LYMPHOCYTES PERCENT AUTO 8 % (21-46); MONOCYTES PERCENT AUTO 19 % (4-13); Mean Corpuscular HGB Conc 28.3 g/dL (31.5-36.5); Mean Corpuscular Volume 85 fL (80-100); NEUTROPHILS ABSOLUTE AUTO 10.12 K/mm3 (1.96-9.15); NEUTROPHILS PERCENT AUTO 67 % (41-73); NRBC ABSOLUTE 0.02 K/mm3 (0.00-0.02); NRBC Auto 0.1 /100 WBC (0.0-0.2); RDW Coefficient Variation 19.5 % (11.7-14.2); RDW Standard Deviation 60.2 fL (35.1-46.3); Red Blood Cell Count 3.34 M/mm3 (4.30-5.90); White Blood Cell Count 15.13 K/mm3 (4.00-11.30)
[2021-12-03 04:59] LABS: Platelet Count 8 K/mm3 (150-400)
[2021-12-03 05:12] LABS: Alanine Aminotransfer (ALT/SGP 12 U/L (12-78); Albumin, Blood 2.7 g/dL (3.4-5.0); Albumin/Globulin Ratio 0.6 (0.8-1.8); Alk Phos 53 U/L (50-136); Anion Gap 4 mmol/L (6-16); Aspartate Aminotrans (AST/SGOT 10 U/L (12-37); Bilirubin, Total 0.2 mg/dL (0.1-1.0); Blood Urea Nitrogen 12 mg/dL (8-24); Bun/Creatinine Ratio 12.9 (12.0-20.0); CO2, Blood 27 mmol/L (21-32); Chloride, Blood 107 mmol/L (98-108); Creatinine, Blood 0.93 mg/dL (0.60-1.20); Globulin, Blood 4.3 g/dL (2.2-4.0); Glomerular Filtration Rate >60 (60-); Glucose, Blood 117 mg/dL (70-99); Potassium, Blood 3.9 mmol/L (3.5-5.5); Sodium, Blood 138 mmol/L (136-145)
[2021-12-03] MEDS ORDERED: DOPTELET20 MG PO (12:27)
--- NOTE | 2021-12-03 19:16 | NUR ---
SHIFT SUMMARY PT AxOx4. PLEASANT AND COOPERATIVE WITH CARE. INDEPENDENT IN THE ROOM. PT HAD SHOWER TODAY. C/O PAIN AT INCISION/DRAIN SITE x1. MEDICATED PER EMAR WITH REPORTED RELIEF. PT HAD DRAIN BAG AND DRESSING CHANGED THIS SHIFT. PER ANDROID FRAMEWORK DEVELOPER, TELE RUNNING SINUS TACH AT 103. PLATELET TRANSFUSION ORDERED LATER THIS SHIFT, PASSED TO TRAFFIC ROUTING ENGINEER RN TO BEGIN. IN ROOM TODAY, UPDATED ON PLAN OF CARE. CURRENTLY MONITORING PLATELETS AND GETTING IV ABX FOR MRSA TX. VITALS REVIEWED. PT CURRENTLY RESTING IN BED WITH CALL LIGHT IN REACH. DENIES ANY NEEDS AT THIS TIME.
--- NOTE | 2021-12-04 05:30 | NUR ---
SHIFT SUMMARY: PT IS A/OX4. ON CONTACT FOR MRSA. TELE: SR/86. INDEPENDENT IN ROOM. DRAINAGE BAG TO GRAVITY WITH SCANT OUTPUT. PT HAS OXY 5MG PRN FOR PAIN. HE DID RECEIVE ONE BAG OF PLATELETS THIS NOC SHIFT. NO OTHER ACUTE CHANGES THIS SHIFT AND WE WILL CONTINUE TO MONITOR.
[2021-12-04 05:52] LABS: Vancomycin, Trough 16.9 ug/mL (5.0-10.0)
[2021-12-04 07:46] LABS: BASOPHILS ABSOLUTE AUTO 0.18 K/mm3 (0.00-0.23); BASOPHILS PERCENT AUTO 1 % (0-2); EOSINOPHILS ABSOLUTE AUTO 0.49 K/mm3 (0.00-0.68); EOSINOPHILS PERCENT AUTO 3 % (0-6); Hematocrit 27.6 % (37.0-53.0); Hemoglobin 8.1 g/dL (13.5-17.5); IMMATURE GRAN PERCENT AUTO 1 % (0-1); LYMPHOCYTES ABSOLUTE AUTO 1.42 K/mm3 (0.84-5.20); LYMPHOCYTES PERCENT AUTO 9 % (21-46); MONOCYTES ABSOLUTE AUTO 2.62 K/mm3 (0.16-1.47); MONOCYTES PERCENT AUTO 17 % (4-13); Mean Corpuscular HGB 24.1 pg (26.0-34.0); Mean Corpuscular HGB Conc 29.3 g/dL (31.5-36.5); Mean Corpuscular Volume 82 fL (80-100); NEUTROPHILS ABSOLUTE AUTO 10.97 K/mm3 (1.96-9.15); NEUTROPHILS PERCENT AUTO 70 % (41-73); NRBC ABSOLUTE 0.03 K/mm3 (0.00-0.02); NRBC Auto 0.2 /100 WBC (0.0-0.2); RDW Coefficient Variation 20.1 % (11.7-14.2); RDW Standard Deviation 60.3 fL (35.1-46.3); Red Blood Cell Count 3.36 M/mm3 (4.30-5.90); White Blood Cell Count 15.78 K/mm3 (4.00-11.30)
[2021-12-04 07:53] LABS: Anion Gap 7 mmol/L (6-16); Blood Urea Nitrogen 10 mg/dL (8-24); Bun/Creatinine Ratio 10.9 (12.0-20.0); CO2, Blood 26 mmol/L (21-32); Calcium, Blood 9.3 mg/dL (8.5-10.1); Chloride, Blood 106 mmol/L (98-108); Creatinine, Blood 0.92 mg/dL (0.60-1.20); Glomerular Filtration Rate >60 (60-); Glucose, Blood 112 mg/dL (70-99); Phosphorus, Blood 4.3 mg/dL (2.5-4.9); Platelet Count 3 K/mm3 (150-400); Potassium, Blood 3.7 mmol/L (3.5-5.5); Sodium, Blood 139 mmol/L (136-145)
--- NOTE | 2021-12-04 17:28 | NUR ---
DAY SHIFT SUMMARY 66 YR OLD MALE ADMITTED WITH SEPSIS. INDEPENDENT IN ROOM, A/O X4. LUQ DRAIN IS TO BE DRAINING BY GRAVITY WITH ONLY SCANT AMOUNTS THROUGHOUT SHIFT. SOME LEAKAGE AROUND DRAIN INCERTION SITE, DR HENDERSON MADE AWARE. RADIOLOGY CONSULTED AND ARE TO COME ASSESS ON TOMORROW SHIFT. ONE BAG OF PLATELETTS GIVEN THIS SHIFT. PT ON RA AND CONTACT PRECAUTIONS FOR MRSA. CALL LIGHT WITHIN REACH AND ABLE TO CALL APPROPRIATE. VISITED AT BEDSIDE TODAY.
--- NOTE | 2021-12-05 03:30 | NUR ---
2340: PT REPORTS SEVERE PAIN IN LOWER BACK/FLANK AREA. MD NOTIFIED AND URGENT CT W/ CONTRAST ORDERED. PT GIVEN 25 MCQ OF FENTANYL W/ RESOLVED. PT ABLE TO SIT AND WHEELCHAIR, LAY ON CT TABLE AND BACK TO ROOM. ONCE IN ROOM PT REPORTS PAIN HAS DECREASED, BUT STILL PRESENT. 650 MG OF TYLENOL GIVEN AND PT REPOSITIONED SELF. PT STATED PAIN IS MORE TOLERABLE. PRELIMINARY CT IMPRESSION IN PATIENT CHART. WE'LL CONTINUE TO MONITOR.
--- NOTE | 2021-12-05 05:42 | NUR ---
PT IS A/OX4. RA. TELE: SR/86. PT HAS REPORTED EXTREME PAIN IN HIS LOWER BACK. HE DESCRIBES SHARP/SHOOTING. WAS NOTIFIED AND A CT ABD/PELVIS W/ CONTRAST WAS ORDERED. THE INITIAL IMPRESSION IS IN HIS CHART. THE DRAIN IN HIS LUQ HAS BEEN LEAKING AT THE INCISION SITE AND THE TRANSPARENT DRESSING WAS CHANGED, BUT THERE IS STLL A SCANT AMOUNT OF DRAINAGE. HE STATES NO C/O PAIN AROUND THE INCISION SITE. OUTPUT FROM THE DRAIN HAS BEEN SCANT. HIS CALL LIGHT IS WITHIN REACH AND WE'LL CONTINUE TO MONITOR.
[2021-12-05 08:32] LABS: BASOPHILS ABSOLUTE AUTO 0.25 K/mm3 (0.00-0.23); BASOPHILS PERCENT AUTO 1 % (0-2); EOSINOPHILS PERCENT AUTO 2 % (0-6); Hematocrit 30.5 % (37.0-53.0); Hemoglobin 8.8 g/dL (13.5-17.5); IMMATURE GRAN ABSOLUTE AUTO 0.15 K/mm3 (0.00-0.10); IMMATURE GRAN PERCENT AUTO 1 % (0-1); LYMPHOCYTES PERCENT AUTO 6 % (21-46); MONOCYTES ABSOLUTE AUTO 3.45 K/mm3 (0.16-1.47); MONOCYTES PERCENT AUTO 17 % (4-13); Mean Corpuscular HGB 23.5 pg (26.0-34.0); Mean Corpuscular HGB Conc 28.9 g/dL (31.5-36.5); Mean Corpuscular Volume 82 fL (80-100); NEUTROPHILS ABSOLUTE AUTO 15.08 K/mm3 (1.96-9.15); NEUTROPHILS PERCENT AUTO 74 % (41-73); NRBC ABSOLUTE 0.09 K/mm3 (0.00-0.02); NRBC Auto 0.4 /100 WBC (0.0-0.2); RDW Coefficient Variation 20.1 % (11.7-14.2); RDW Standard Deviation 59.7 fL (35.1-46.3); Red Blood Cell Count 3.74 M/mm3 (4.30-5.90); White Blood Cell Count 20.43 K/mm3 (4.00-11.30)
[2021-12-05 09:20] LABS: Platelet Count 2 K/mm3 (150-400)
--- NOTE | 2021-12-05 16:46 | NUR ---
DAY SHIFT SUMMARY 66 YR OLD MALE ADMITTED WITH SEPSIS. PT HAS A DRAIN IN FROM PREVIOUS SURGERY WITH [facility]. RADIOLOGY CAME TODAY AND CHANGED FROM GRAVITY DRAIN BACK TO ACCORDIAN DRAIN. CRITICAL LOW PLATELET LAB OF 2, PLATELETS ORDERED (1 UNIT) AND ADMINISTERED. PT HAS C/O SEVERE LOW BACK AND ABDOMEN PAIN, MEDICATED PER EMAR. AWARE. INDEPENDENT IN ROOM. CALL LIGHT WITHIN REACH AND ABLE TO CALL APPROPRIATELY. AT BEDSIDE MOST OF SHIFT.
--- NOTE | 2021-12-06 01:24 | NUR ---
12/05/212019 PT SITTING ON EDGE OF BED. REPORTS BACK AND ABD PAIN OF 8/10. SOB WHEN HE LAYS DOWN. ON RA AT 95%. DRAIN TO ABD, DRESSING IS C/D/I, DRAINAGE IN TUBE AND SCANT AMOUNT IN BAG IS MED TO DARK RED. WILL MEDICATE ORDERED AND EVAL FOR EFFECT. NO OTHER APPARENT SIGNS OF DISTRESS. CALL LIGHT IS IN REACH.
--- NOTE | 2021-12-06 01:25 | NUR ---
12/05/212315 PT WAS STILL VERY PAINFUL AFTER THE PAIN MEDS WERE GIVEN EARLIER. CALLED AND SPOKE WITH DR HUNT, HE INCREADED THE DOSE ON THE PT'S PAIN MEDS. SPOKE WITH HIM ABOUT THE DRAIN NO LONGER DRAINING AND THE SHIFT REPORT THAT THIS ABD AND BACK PAIN STARTED OCCURRING WHEN THAT HAPPENED. A CT OF THE ABD WAS DONE THIS MORNING THAT SHOWED THE DRAIN WAS IN THE CORRECT PLACE AND THE ABCESS SHOWED IMPROVEMENT. NO FURTHER ORDERS AT THIS TIME. WILL GIVE THE MEDS ORDERED AND CONTINUE TO MONITOR. NO OTHER APPARENT SIGNS OF DISTRESS AT THIS TIME. CALL LIGHT IS IN REACH.
--- NOTE | 2021-12-06 04:16 | NUR ---
0200 PT SCRATCHED OFF HIS TELE PADS, REPLACED PADS AND PUT TELE BACK ON. PT DENIES NEED FOR ANYTHING ELSE AT THIS TIME. NO OTHER APPARENT SIGNS OF DISTRESS. CALL LIGHT IS IN REACH.
--- NOTE | 2021-12-06 04:17 | NUR ---
PT SCRATCHED OFF HIS TELE PADS AGAIN AND HIS DRESSING OVER HIS DRAIN TUBE SITE. TELE PADS REPLACED, NEW DRESSING PLACED OVER DRAIN SITE. PT WAS ASLEEP WHEN IT HAPPENED AND DID NOT INTENTIONALLY SCRATCH THEM OFF. PT DENIES NEED FOR ANYTHING ELSE AT THIS TIME. NO OTHE APPARENT SIGNS OF DISTRESS. CALL LIGHT IS IN REACH.
[2021-12-06 04:18] LABS: Hematocrit 28.2 % (37.0-53.0); Hemoglobin 8.5 g/dL (13.5-17.5); Mean Corpuscular HGB Conc 30.1 g/dL (31.5-36.5); Mean Corpuscular Volume 80 fL (80-100); NRBC ABSOLUTE 0.13 K/mm3 (0.00-0.02); NRBC Auto 0.7 /100 WBC (0.0-0.2); RDW Coefficient Variation 19.9 % (11.7-14.2); RDW Standard Deviation 58.3 fL (35.1-46.3); Red Blood Cell Count 3.54 M/mm3 (4.30-5.90); White Blood Cell Count 18.07 K/mm3 (4.00-11.30)
--- NOTE | 2021-12-06 04:18 | NUR ---
PT IS AAO X 4, ON RA AT 95%. PT REPORTED ABD AND BACK PAIN, GOT OXYCODONE AND FENTANYL X 2. PT HAS A RASH ALL OVER HIS BODY, PT REPORTS THAT IT HAS BEEN GOING ON FOR ALMOST A YEAR, REPORTS THAT IT ITCHES. PT HAS SCRATCHED HIS TELE PADS OFF A COUPLE OF TIMES AND THE DRESSING ON HIS DRAIN SITE ONCE, NOT INTENTIONALLY THOUGH. PT HAS SCRATCHED MULTIPLE SMALL SCABS OPEN, HE HAS BEEN HOLDING PRESSURE ON THEM WITH KLEENEX. WE ATTEMPTED TO PUT A DRESSING ON SOME OF THEM, BUT THEY ARE VERY SMALL AND ALL OVER, AND HE KEEPS SCRATCHING MORE OPEN. THE TISSUE SEEMS TO BE WORKING THE BEST. TELE NSR AT 94. BS WAS 128.PT HAS DRAIN TO ABD THAT HAS DRAINAGE IN TUBE AND SCANT AMOUNT IN THE BAG THAT IS MED TO DARK RED. IS AWARE THAT IT DOES NOT APPEAR TO BE DRAINING ANY LONGER. A CT OF THE ABD WAS DONE YESTERDAY.
[2021-12-06 04:37] LABS: Platelet Count 1 K/mm3 (150-400)
[2021-12-06 04:39] LABS: Albumin, Blood 3.2 g/dL (3.4-5.0); Anion Gap 4 mmol/L (6-16); Blood Urea Nitrogen 10 mg/dL (8-24); Bun/Creatinine Ratio 10.3 (12.0-20.0); CO2, Blood 29 mmol/L (21-32); Calcium, Blood 9.6 mg/dL (8.5-10.1); Chloride, Blood 101 mmol/L (98-108); Creatinine, Blood 0.97 mg/dL (0.60-1.20); Glomerular Filtration Rate >60 (60-); Glucose, Blood 153 mg/dL (70-99); Potassium, Blood 3.9 mmol/L (3.5-5.5); Sodium, Blood 134 mmol/L (136-145)
[2021-12-06 04:52] LABS: Vancomycin, Trough 20.9 ug/mL (5.0-10.0)
--- NOTE | 2021-12-06 06:14 | NUR ---
PT LYING IN BED, EYES CLOSED, APPEARS TO BE RESTING. BREATHING IS EVEN, UNLABORED. NO APPARENT SIGNS OF DISTRESS. CALL LIGHT IS IN REACH. NO OTHER CHANGES THIS SHIFT.
[2021-12-06] MEDS ORDERED: VISBIOME 112.51 EACH PO (17:15)
[2021-12-06] MEDS ORDERED: CLIN300 PO (17:15)
--- NOTE | 2021-12-06 19:51 | NUR ---
1700 PT DISCHARGED WITH DC ORDERS. INSTRUCTED ON ACCORDIAN TUBE FLUSH AND CARE. TEGADERM CHANGED BEFORE DISCHARGE AND ANCHORED WITH TAPE. DC INSTRUCTIONS GIVEN TO PT AND . HOME MEDS SENT HOME WITH PT. MEDICATED WITH OXY BEFORE DISCHARGE. HAND WRITTEN TIME ON DC NOTES.
== END 2021-12-06 18:25 | disposition home or self-care (01) | DRG 862 ==
LOC: ER 17:56 → MEDS 21:34
PROVIDERS: Emergency Medicine; Internal Medicine; ADMIT Internal Medicine
PROC: 0W9G30Z Drainage of Peritoneal Cavity with Drainage Device, Percutaneous Approach (ICD-10-PCS; principal; 2021-12-01)
DX: T81.43XA Infection following a procedure, organ and space surgical site, initial encounter (principal); A41.02 Sepsis due to Methicillin resistant Staphylococcus aureus; J96.01 Acute respiratory failure with hypoxia; K65.1 Peritoneal abscess; D69.3 Immune thrombocytopenic purpura; J98.11 Atelectasis; E11.22 Type 2 diabetes mellitus with diabetic chronic kidney disease; I12.9 Hypertensive chronic kidney disease with stage 1 through stage 4 chronic kidney disease, or unspecified chronic kidney disease; N18.2 Chronic kidney disease, stage 2 (mild); I25.2 Old myocardial infarction; K21.9 Gastro-esophageal reflux disease without esophagitis; I25.10 Atherosclerotic heart disease of native coronary artery without angina pectoris; M54.50 Low back pain, unspecified; G89.29 Other chronic pain; E78.5 Hyperlipidemia, unspecified; F41.9 Anxiety disorder, unspecified; Z87.891 Personal history of nicotine dependence; Z90.89 Acquired absence of other organs; Z90.81 Acquired absence of spleen; Z79.899 Other long term (current) drug therapy; Z79.4 Long term (current) use of insulin; Y83.8 Other surgical procedures as the cause of abnormal reaction of the patient, or of later complication, without mention of misadventure at the time of the procedure
CPT/HCPCS: 36415; 36430; 71260; 74160; 74177; 75989; 80048; 80053; 80069; 80202; 81001; 82803; 82947; 83605; 83880; 84484; 85025; 85027; 85610; 85730; 86900; 86901; 87040; 87070; 87075; 87077; 87147; 87186; 87205; 93005; 93010; 96365; 96375; 99285-25; A9270; J1200; J1815; J2060; J2405; J2543; J2765; J3010; J3370; J7030; J7040; J7050; J7120; J7517; P9035; P9053; Q9967

== ENCOUNTER 2021-12-07 00:47 | Inpatient (IN) | payer MEDICARE, OTHER ==
[~2021-12-07] VITALS: Ht 172.7 cm; Wt 91.9 kg
[~2021-12-07 00:47] MED LIST changes: +AMOCLA875 PO; +ATOR20 PO; +Acetaminophen650 M1 PO; +CLIN300 PO; +Carvedilol12.5 MG PO; +DOPTELET20 MG PO; +INSULANI SC; +INSULIN LI100 UNIT/8 SC; +METO5A PO; +MIRALAX17 GM PO; +MYCO250 PO; +NPLATE SC; +OXYC5 PO; +XYZAL5 MG PO
[2021-12-07 02:17] LABS: Base Excess Venous 1.8 mmol/L; Bicarbonate Venous 25.8 mmol/L (24.0-30.0); PO2 Venous 76.2 mmHg (38-42); pH Blood Venous 7.42 (7.34-7.37)
[2021-12-07 02:20] LABS: BASOPHILS ABSOLUTE AUTO 0.24 K/mm3 (0.00-0.23); BASOPHILS PERCENT AUTO 1 % (0-2); EOSINOPHILS ABSOLUTE AUTO 0.06 K/mm3 (0.00-0.68); EOSINOPHILS PERCENT AUTO 0 % (0-6); Hematocrit 25.6 % (37.0-53.0); Hemoglobin 7.6 g/dL (13.5-17.5); IMMATURE GRAN ABSOLUTE AUTO 0.28 K/mm3 (0.00-0.10); IMMATURE GRAN PERCENT AUTO 1 % (0-1); LYMPHOCYTES ABSOLUTE AUTO 1.22 K/mm3 (0.84-5.20); LYMPHOCYTES PERCENT AUTO 6 % (21-46); MONOCYTES ABSOLUTE AUTO 3.16 K/mm3 (0.16-1.47); MONOCYTES PERCENT AUTO 16 % (4-13); Mean Corpuscular HGB Conc 29.7 g/dL (31.5-36.5); Mean Corpuscular Volume 81 fL (80-100); NEUTROPHILS PERCENT AUTO 75 % (41-73); NRBC ABSOLUTE 0.28 K/mm3 (0.00-0.02); NRBC Auto 1.4 /100 WBC (0.0-0.2); RDW Coefficient Variation 20.3 % (11.7-14.2); RDW Standard Deviation 60.2 fL (35.1-46.3); Red Blood Cell Count 3.17 M/mm3 (4.30-5.90); White Blood Cell Count 19.76 K/mm3 (4.00-11.30)
[2021-12-07 02:26] LABS: Platelet Count 0 K/mm3 (150-400)
[2021-12-07 02:39] LABS: Albumin, Blood 3.1 g/dL (3.4-5.0); Albumin/Globulin Ratio 0.7 (0.8-1.8); Bilirubin, Total 0.4 mg/dL (0.1-1.0); Bun/Creatinine Ratio 14.6 (12.0-20.0); Calcium, Blood 9.1 mg/dL (8.5-10.1); Creatinine, Blood 1.23 mg/dL (0.60-1.20); Globulin, Blood 4.4 g/dL (2.2-4.0); Magnesium, Blood 2.2 mg/dL (1.6-2.4); Potassium, Blood 4.3 mmol/L (3.5-5.5); Total Protein, Blood 7.5 g/dL (6.4-8.2)
[2021-12-07 03:39] LABS: International Normalized Ratio 1.13; Prothrombin Time Results 11.8 Sec (9.7-11.5)
[2021-12-07 03:46] LABS: Influenza A, PCR NEGATIVE (NEGATIVE); Influenza B, PCR NEGATIVE (NEGATIVE); Resp Syncytial Virus, PCR NEGATIVE (NEGATIVE); SARS-Cov-2 (COVID-19) PCR, MMC NEGATIVE (NEGATIVE)
--- NOTE | 2021-12-07 06:36 | NUR ---
PATIENT IS A NEW ADMIT FROM THE ED. REPORTS HE DISCHARGED YESTERDAY. AXOX 4 AND SBA FROM GURNEY TO BED. ON 2L O2 NC AND RA BASELINE. REPORTS SPLEENECTOMY THREE WEEKS AGO WITH DRAIN PRESENT ON ADMIT. LASIX GIVEN IN ED. USES URINAL AT BEDSIDE. REPORTS HE SEES DR GUAJARDO FOR PLT OF ZERO. DENIES CHEST PAIN AND N/V. SOB WITH EXERTION. ORIENTED TO ROOM AND CALL LIGHT SYSTEM. WCTM.
--- NOTE | 2021-12-07 12:13 | NUR ---
PT HAS DECLINED TO TAKE THE DEXAMETHASONE D/T WHAT IT DIES TO HIS BLOOD SUGARS. PT STATES IT RAISES HIS BG OVER 400. CALLED DR HENDERSON ABOUT THIS, AND TO REQUEST AN ORDER FOR BG CHECKS. THERE IS A NEW ORDER FOR HUMALOG WITH MEALS NON SS. WILL CTM AND ATTEMPTE TO CALL AGAIN.
--- NOTE | 2021-12-07 12:36 | NUR ---
SPOKE TO DR HENDERSON- PT DOES NOT WANT TO TAKE THE STEROIDS ORDERED, ORDER RECIEVED TO DC THOSE. ORDER RECIEVED TO DO AC/HS BG CHECKS. VISHNU ENNIS DC'D NEW ORDER RECIEVED FOR SS INSULIN.
--- NOTE | 2021-12-07 12:38 | NUR ---
DR GUAJARDO AT THE BEDSIDE AT 1230- DR WANTS THE PT TO RECIEVE THE LPLAT SHOT ANDREINA. CALLED PHARMACY THEY DO NOT YET HAVE IT. CALLED HIS OFFICE THEY ARE AWARE. SPOKE TO DR GUAJARDO HE IS AWARE AND WILL WORK OUT THE LOGISTICS OF GETTING THE SHOT HERE FOR THE PT TO RECIEVE.
--- NOTE | 2021-12-07 15:28 | NUR ---
CALLED DR HENDERSON- PT C/O 06/11 PAIN IN HIS NECK AND BACK. PT CURRENTLY ON HIS HOME DOSE OF OXY. DR DE LA TORRE RECIEVED A OT ORDER FOR ADDITIONAL 5MG NOW.
--- NOTE | 2021-12-07 15:52 | NUR ---
PT SPOUSE STATES THAT THEY WERE TOLD BY SOMEONE (UNCERTAIN WHO) THAT HE WAS ALOWED TO TAKE 2 OF HIS 5MG OXYCODONE EVERY 4 HOURS NEEDED FOR PAIN, AND THAT IS HOW HE HAS BEEN TAKING IT AT HOME. PER THE SPOUSE THE PT PAIN MEDICATION WAS ORDERED BY DR GUAJARDO'S OFFICE. CALLED DR GUAJARDO'S OFFICE TO CLARIFY THE ORDER PER DR GUAJARDO IT WAS NOT ORDERED THAT WAY BUT DR GUAJARDO IS OK WITH THAT INCREASE IF THE PT NEEDS IT. WILL CONTACT DR HENDERSON ABOUT PAIN MEDICATION AGAIN SHORTLY. PT JUST RERCIEVED AN ADDITIONAL OT DOSE OF PAIN MEDICATION.
--- NOTE | 2021-12-07 19:21 | NUR ---
SHIFT SUMMARY- PT CONTINUED TO C/O 06/11 PAIN IN HIS NECK AND BACK, MEDICATED PRN, SPOKE TO DR HENDERSON NEAR END OF SHIFT SHE RECOMENDED A HEATING PAD FOR PT FOR HIS NECK PAIN. PT WAS MEDICATED FOR ITCHING AND AGITATION/ANXIETY WITH PRN ATERAX. PT TOLLERATED IT WELL AND SEEMS TO BE ITCHING LESS THAN HE WAS EARLIER, AND BE MORE RELAXED. PT RECIEVED HIS DOSE OF LPLAT TODAY TO INCREASE HIS PLATELET COUNT, AFTER BEING SEEN BY DR GUAJARDO. PT HAS BEEN ALERT AND ORIENTED AND INDEPENDENT IN THE ROOM, O2 SATS MAINTAIN ON 2L VIA NC. PT CURRENTLY SITTING UP IN THE RECLINER NO S&S OF DISTRESS NOTED. HIS PAIN APPEARS WELL MANAGED AT THIS TIME. PASSED ALL ON IN REPORT TO NIGHT KRISTAN GUZMÁN.
--- NOTE | 2021-12-08 04:14 | NUR ---
SHIFT SUMMARY PATIENT HAD NO ACUTE CHANGES OBSERVED. AXOX 4 AND INDEPENDENT IN ROOM. ON 2L O2 NC. CBG 156. PIV REMAINS INTACT. IV ABX INFUSED. REPORTED BACK PAIN AND OXYCODONE GIVEN PER EMAR. DENIES SOB AND N/V. VSS/AFEBRILE. CALL LIGHT IN REACH. BED IN LOWEST POSITION. WILL CONTINUE TO MONITOR UNTIL DAY SHIFT NURSE ASSUMES CARE.
[2021-12-08 04:52] LABS: Hematocrit 25.7 % (37.0-53.0); Hemoglobin 7.5 g/dL (13.5-17.5); Mean Corpuscular HGB 23.4 pg (26.0-34.0); Mean Corpuscular HGB Conc 29.2 g/dL (31.5-36.5); Mean Corpuscular Volume 80 fL (80-100); NRBC ABSOLUTE 0.27 K/mm3 (0.00-0.02); NRBC Auto 1.3 /100 WBC (0.0-0.2); RDW Coefficient Variation 20.4 % (11.7-14.2); RDW Standard Deviation 59.7 fL (35.1-46.3); Red Blood Cell Count 3.21 M/mm3 (4.30-5.90); White Blood Cell Count 21.05 K/mm3 (4.00-11.30)
[2021-12-08 05:53] LABS: Platelet Count 1 K/mm3 (150-400)
[2021-12-08 07:19] LABS: Albumin, Blood 3.1 g/dL (3.4-5.0); Anion Gap 8 mmol/L (6-16); Blood Urea Nitrogen 16 mg/dL (8-24); Bun/Creatinine Ratio 15.4 (12.0-20.0); CO2, Blood 28 mmol/L (21-32); Calcium, Blood 9.4 mg/dL (8.5-10.1); Chloride, Blood 98 mmol/L (98-108); Creatinine, Blood 1.04 mg/dL (0.60-1.20); Glomerular Filtration Rate >60 (60-); Glucose, Blood 127 mg/dL (70-99); Phosphorus, Blood 3.9 mg/dL (2.5-4.9); Potassium, Blood 3.4 mmol/L (3.5-5.5); Sodium, Blood 134 mmol/L (136-145)
--- NOTE | 2021-12-08 16:23 | NUR ---
SHIFT SUMMARY THE PATIENT IS ALERT AND ORIENTED X4, PLEASANT AND COOPERATIVE WITH CARE. THE PATIENT HAS BEEN ON RA MOST OF THIS SHIFT SATTING AT 92% THE PATIENT IS INDEPENDENT IN THE ROOM. NO TELE. THE PATIENT COUGHED UP SOME BLOOD THIS SHIFT THE SIZE OF A QUARTER. MD FALCON NOTIFIED. NO COVERAGE NEEDED FOR INSULIN X2. FLEXERALL GIVEN X1 FOR NECK. PAIN MEDS GIVEN X1 WHICH SEEMED TO PROVIDE SOME RELIEF FOR THE PATIENT. THE SPOUSE IS AT BEDSIDE. VSS. CALL LIGHT WITHIN REACH. THIS NURSE WILL CONTINUE TO CARE FOR THE PATIENT UNTIL SHIFT REPORT IS GIVEN TO ONCOMING NURSE.
[2021-12-08 19:19] LABS: Vancomycin, Trough 14.7 ug/mL (5.0-10.0)
[2021-12-09 04:39] LABS: Hematocrit 23.4 % (37.0-53.0); Mean Corpuscular HGB 23.9 pg (26.0-34.0); Mean Corpuscular HGB Conc 29.9 g/dL (31.5-36.5); Mean Corpuscular Volume 80 fL (80-100); NRBC ABSOLUTE 0.26 K/mm3 (0.00-0.02); NRBC Auto 1.7 /100 WBC (0.0-0.2); RDW Coefficient Variation 20.5 % (11.7-14.2); RDW Standard Deviation 59.9 fL (35.1-46.3); Red Blood Cell Count 2.93 M/mm3 (4.30-5.90); White Blood Cell Count 15.61 K/mm3 (4.00-11.30)
[2021-12-09 04:46] LABS: Platelet Count 1 K/mm3 (150-400)
--- NOTE | 2021-12-09 04:49 | NUR ---
SUMMARY NO NEW ISSUES NOTED. PT HAS BEEN BREATHING EASY T/OUT SHIFT. PT DRAIN SITE IS C/D/I. PT DISCOMFORT TX PER EMAR W/ RELIEF. PT CURRENTLY AWAKE WATCHING TV AND IN NO DISTRESS. CALL LIGHT IN REACH.
[2021-12-09 04:57] LABS: Albumin, Blood 2.8 g/dL (3.4-5.0); Anion Gap 7 mmol/L (6-16); Blood Urea Nitrogen 13 mg/dL (8-24); CO2, Blood 28 mmol/L (21-32); Calcium, Blood 8.9 mg/dL (8.5-10.1); Chloride, Blood 100 mmol/L (98-108); Creatinine, Blood 1.08 mg/dL (0.60-1.20); Glomerular Filtration Rate >60 (60-); Glucose, Blood 125 mg/dL (70-99); Phosphorus, Blood 4.4 mg/dL (2.5-4.9); Potassium, Blood 3.7 mmol/L (3.5-5.5); Sodium, Blood 135 mmol/L (136-145)
[2021-12-09 05:31] LABS: BASOPHILS PERCENT MAN 0 % (0-2); EOSINOPHILS PERCENT MAN 0 % (0-6); LYMPHOCYTES ABSOLUTE MAN 1.56 K/mm3 (0.84-5.20); LYMPHOCYTES PERCENT MAN 10 % (21-46); MONOCYTES ABSOLUTE MAN 2.49 K/mm3 (0.16-1.47); MONOCYTES PERCENT MAN 16 % (4-13); NEUTROPHILS ABSOLUTE MAN 11.55 K/mm3 (1.96-9.15); SEG NEUTROPHILS PERCENT MAN 74 % (41-73); TOTAL CELLS COUNTED 100
--- NOTE | 2021-12-09 18:13 | NUR ---
SHIFT SUMMARY THE PATIENT IS ALERT AND ORIENTED X4, PLEASANT AND COOPERATIVE WITH CARE. THE PATIENT IS ON RA/2LPM OF 02 FOR COMFORT. MEDICATED X1 FOR PAIN. INDEPENDENT IN THE ROOM. NO TELE. NO ACUTE CHANGES. VSS. CALL LIGHT WITHIN REACH. THIS NURSE WILL CONTINUE TO CARE FOR THE PATIENT UNTIL SHIFT REPORT IS GIVEN TO ONCOMING NURSE.
--- NOTE | 2021-12-10 04:26 | NUR ---
PT IS A/OX4, PLEASANT AND COOPERATIVE, THE PT IS UP IND IN HIS ROOM. PT WEARS O2 PRN APPEARS TO BE BREATHING EASILY AT REST. THE PT WAS MEDICATED FOR PAIN T/O THE NIGHT. LIDOCAINE PATCHES APPLIED TO THE BACK OF THE NECK AND LOW BACK PER PT REQUEST. THE PT WAS AWAKE FOR MOST OF THE NIGHT. CALL LIGHT IN REACH WILL CONTINUE TO MONNITOR AND ASSESS FOR CHANGES.
[2021-12-10 05:39] LABS: Anion Gap 7 mmol/L (6-16); Blood Urea Nitrogen 13 mg/dL (8-24); Bun/Creatinine Ratio 11.8 (12.0-20.0); CO2, Blood 29 mmol/L (21-32); Calcium, Blood 9.1 mg/dL (8.5-10.1); Chloride, Blood 100 mmol/L (98-108); Glomerular Filtration Rate >60 (60-); Glucose, Blood 112 mg/dL (70-99); Phosphorus, Blood 4.4 mg/dL (2.5-4.9); Potassium, Blood 3.6 mmol/L (3.5-5.5); Sodium, Blood 136 mmol/L (136-145)
[2021-12-10 07:52] LABS: Hematocrit 24.3 % (37.0-53.0); Hemoglobin 6.9 g/dL (13.5-17.5); Mean Corpuscular HGB 23.4 pg (26.0-34.0); Mean Corpuscular HGB Conc 28.4 g/dL (31.5-36.5); Mean Corpuscular Volume 82 fL (80-100); NRBC ABSOLUTE 0.45 K/mm3 (0.00-0.02); RDW Standard Deviation 62.3 fL (35.1-46.3); Red Blood Cell Count 2.95 M/mm3 (4.30-5.90); White Blood Cell Count 14.91 K/mm3 (4.00-11.30)
[2021-12-10 08:08] LABS: Platelet Count 1 K/mm3 (150-400)
--- NOTE | 2021-12-10 19:02 | NUR ---
SHIFT SUMMARY THE PATIENT IS ALERT AND ORIENTED X4, PLEASANT AND COOPERATIVE WITH CARE. THE PATIENT WOKE THIS MORNING DISORIENTED BUT QUICKLY BOUNCED BACK OUT OF IT. THE PATIENT RECEIVED 1 UNIT OF PLATELETS AND 1 UNIT OF PACKED RED BLOOD CELLS. CALAMINE LOTION APPLIED FOR RASH. NEW IV IN THE RIGHT AC. ON RA. NO TELE. MEDICATED FOR PAIN X2. NO ACUTE CHANGES. VSS. CALL LIGHT WITHIN REACH.
[2021-12-11 04:30] LABS: BASOPHILS ABSOLUTE AUTO 0.24 K/mm3 (0.00-0.23); BASOPHILS PERCENT AUTO 2 % (0-2); EOSINOPHILS ABSOLUTE AUTO 0.36 K/mm3 (0.00-0.68); EOSINOPHILS PERCENT AUTO 2 % (0-6); Hematocrit 25.3 % (37.0-53.0); Hemoglobin 7.6 g/dL (13.5-17.5); IMMATURE GRAN ABSOLUTE AUTO 0.24 K/mm3 (0.00-0.10); IMMATURE GRAN PERCENT AUTO 2 % (0-1); LYMPHOCYTES ABSOLUTE AUTO 1.31 K/mm3 (0.84-5.20); LYMPHOCYTES PERCENT AUTO 8 % (21-46); MONOCYTES ABSOLUTE AUTO 2.51 K/mm3 (0.16-1.47); MONOCYTES PERCENT AUTO 16 % (4-13); Mean Corpuscular HGB 24.3 pg (26.0-34.0); Mean Corpuscular Volume 81 fL (80-100); NEUTROPHILS ABSOLUTE AUTO 11.31 K/mm3 (1.96-9.15); NEUTROPHILS PERCENT AUTO 71 % (41-73); NRBC ABSOLUTE 0.57 K/mm3 (0.00-0.02); NRBC Auto 3.6 /100 WBC (0.0-0.2); RDW Coefficient Variation 19.9 % (11.7-14.2); RDW Standard Deviation 58.5 fL (35.1-46.3); Red Blood Cell Count 3.13 M/mm3 (4.30-5.90); White Blood Cell Count 15.97 K/mm3 (4.00-11.30)
[2021-12-11 04:43] LABS: Platelet Count 1 K/mm3 (150-400)
[2021-12-11 04:44] LABS: Anion Gap 6 mmol/L (6-16); Blood Urea Nitrogen 11 mg/dL (8-24); Bun/Creatinine Ratio 9.9 (12.0-20.0); CO2, Blood 29 mmol/L (21-32); Calcium, Blood 9.1 mg/dL (8.5-10.1); Chloride, Blood 101 mmol/L (98-108); Creatinine, Blood 1.11 mg/dL (0.60-1.20); Glomerular Filtration Rate >60 (60-); Glucose, Blood 168 mg/dL (70-99); Magnesium, Blood 1.9 mg/dL (1.6-2.4); Phosphorus, Blood 4.2 mg/dL (2.5-4.9); Potassium, Blood 3.6 mmol/L (3.5-5.5); Sodium, Blood 136 mmol/L (136-145)
--- NOTE | 2021-12-11 07:35 | NUR ---
PM SHIFT SUMMARY PATIENT WAS AWAKE MOST OF THE EVENING. HE HAD COMPLAINTS OF PAIN A FEW TIMES DURING SHIFT AND WAS GIVEN NICOLE PER EMAR. PATIENT'S PLATELET COUNT THIS MONRING WAS STILL A 1. I SPOKE WITH DR. MARTINEZ WHOM ORDERED 1 UNIT OF PLATELETS FOR HIM; THIS WILL BE STARTED BY AM NURSE, ORDER WAS PUT IN JUST AFTER 0600 THIS MORNING. HE USED HIS 2L O2 VIA NC NEEDED LAST NIGHT, WHICH WAS NOT OFTEN. HE WAS ASKING QUESTIONS ABOUT HIS DRAIN BEING REMOVED THIS MORNING, BUT I WAS UNABLE TO SPEAK TO HIM ON THAT TOPIC, NO NOTES PERTAINED TO THIS. HE REFUSED A 2ND IV FOR HIS PLATELETS THIS MORNING AND STATED "I AM DONE BEING POKED ALL THE TIME". PLATELTS MAY NEED TO BE STARTED AFTER VANCO SINCE HE ONLY HAS 1 IV.
--- NOTE | 2021-12-11 19:19 | NUR ---
SHIFT SUMMARY A&OX4. INDEPENDENT IN ROOM. ON 2L O2 NEEDED. HAS PRODUCTIVE COUGH WITH DARK BLACK SPUTUM. RECEIVED 1 UNIT OF PLATELETS THIS AM. ABDOMINAL DRAIN REMOVED AT BEDSIDE BY DR. CROW. PATIENT REFUSING SHOWER TODAY. ABDOMINAL WOUND CLEANSED WITH WARM SOAPY WATER AND SILVER NITRATE STICK APPLIED PER DR. CROW AND DRESSING APPLIED. C/O NAUSEA AND PAIN, MEDICATED PER OCT. POOR APPETITE. WILL CONTINUE TO MONITOR.
--- NOTE | 2021-12-12 05:38 | NUR ---
DIRECTOR HEART SUMMARY PT HAS SOME DIFFICULTY SLEEPING DUE TO LOW BACK PAIN. MEDICATED X2 WITH OXYCODONE. DRESSING TO THE LUQ WHERE THE DRAIN WAS REMOVED REMAINS C/D/I. PT HAS NO COMPLAINTS OF SOB AND HAS BEEN USING 2L BY NC PRN. MOSTLY INDEPENDENT IN THE ROOM. ALERT AND ORIENTED X4 AND PLEASANT WITH CARE.
[2021-12-12 07:06] LABS: Hematocrit 24.8 % (37.0-53.0); Hemoglobin 6.9 g/dL (13.5-17.5); Mean Corpuscular HGB 23.6 pg (26.0-34.0); Mean Corpuscular HGB Conc 27.8 g/dL (31.5-36.5); Mean Corpuscular Volume 85 fL (80-100); NRBC Auto 2.7 /100 WBC (0.0-0.2); RDW Coefficient Variation 20.8 % (11.7-14.2); RDW Standard Deviation 62.4 fL (35.1-46.3); Red Blood Cell Count 2.92 M/mm3 (4.30-5.90); White Blood Cell Count 14.76 K/mm3 (4.00-11.30)
[2021-12-12 07:11] LABS: Platelet Count 2 K/mm3 (150-400)
[2021-12-12 07:20] LABS: Vancomycin, Trough 17.8 ug/mL (5.0-10.0)
[2021-12-12 08:54] LABS: Percent Saturation 4.4 % (20.0-50.0)
[2021-12-12] MEDS ORDERED: Cyclobenzaprine5 MG PO (12:38)
[2021-12-12] MEDS ORDERED: BENADRYL25 MG PO (12:39)
[2021-12-12] MEDS ORDERED: VISBIOME 112.51 EACH PO (12:40)
[2021-12-12] MEDS ORDERED: CLIN300 PO (12:41)
--- NOTE | 2021-12-12 16:46 | NUR ---
DISCHARGE SUMMARY PATIENT DISCHARGED HOME. DISCHARGE PAPERWORK REVIEWED WITH PATIENT AND ALL QUESTIONS ANSWERED. PHARMACY REVEIWED NEW MEDICATIONS WITH PATIENT. PRESCRIPTIONS FAXED TO [facility] PER PATIENT REQUEST AND TWO HARD SCRIPTS GIVEN TO PATIENT. HOME O2 EVAL DONE AND PATIENT GOING HOME WITH O2. [facility] DELIVERED TANK TO PATIENTS ROOM. IV REMOVED. PATIENT AND ALL BELONGINGS TAKEN DOWN VIA WHEELCHAIR AND PATIENT TAKEN HOME IN PERSONAL CAR BY .
== END 2021-12-12 15:06 | disposition home or self-care (01) | DRG 291 ==
LOC: ER 00:47 → MEDS 03:58
PROVIDERS: Family Medicine; Internal Medicine; Internal Medicine Hematology & Oncology; Pharmacist; Student in an Organized Health Care Education/Training Program; ADMIT Internal Medicine
DX: I13.0 Hypertensive heart and chronic kidney disease with heart failure and stage 1 through stage 4 chronic kidney disease, or unspecified chronic kidney disease (principal); J96.01 Acute respiratory failure with hypoxia; I50.33 Acute on chronic diastolic (congestive) heart failure; K65.1 Peritoneal abscess; J18.9 Pneumonia, unspecified organism; D69.3 Immune thrombocytopenic purpura; N17.9 Acute kidney failure, unspecified; T81.43XA Infection following a procedure, organ and space surgical site, initial encounter; Z20.822 Contact with and (suspected) exposure to COVID-19; M54.50 Low back pain, unspecified; E78.5 Hyperlipidemia, unspecified; F41.9 Anxiety disorder, unspecified; E11.22 Type 2 diabetes mellitus with diabetic chronic kidney disease; N18.30 Chronic kidney disease, stage 3 unspecified; I25.2 Old myocardial infarction; Z79.899 Other long term (current) drug therapy; Z79.4 Long term (current) use of insulin; Z90.89 Acquired absence of other organs; Z87.891 Personal history of nicotine dependence; Z90.81 Acquired absence of spleen
CPT/HCPCS: 0241U; 36415; 36430; 71260; 80053; 80069; 80202; 82728; 82803; 82947; 83540; 83550; 83735; 83880; 84145; 84484; 85025; 85027; 85610; 86850; 86900; 86901; 86923; 87040; 93005; 93010; 93308; 93321; 94761; 96374; 99285-25; A9270; J1815; J1940; J2405; J2550; J3370; J7050; J7517; P9016; P9035; P9053; Q9967

== ENCOUNTER 2022-01-06 07:41 | Emergency (ER) | payer MEDICARE, OTHER ==
[~2022-01-06] VITALS: Ht 172.7 cm; Wt 89.8 kg
[~2022-01-06 07:41] MED LIST changes: +BENADRYL25 MG PO; +Cyclobenzaprine5 MG PO
[2022-01-06 08:36] LABS: Hemoglobin 9.9 g/dL (13.5-17.5); Mean Corpuscular HGB 22.4 pg (26.0-34.0); Mean Corpuscular HGB Conc 29.1 g/dL (31.5-36.5); Mean Corpuscular Volume 77 fL (80-100); Platelet Count 230 K/mm3 (150-400); Red Blood Cell Count 4.42 M/mm3 (4.30-5.90)
[2022-01-06 08:42] LABS: Alanine Aminotransfer (ALT/SGP 18 U/L (12-78); Albumin, Blood 3.5 g/dL (3.4-5.0); Albumin/Globulin Ratio 0.7 (0.8-1.8); Alk Phos 82 U/L (50-136); Anion Gap 7 mmol/L (6-16); Aspartate Aminotrans (AST/SGOT 12 U/L (12-37); Bilirubin, Total 0.4 mg/dL (0.1-1.0); Blood Urea Nitrogen 13 mg/dL (8-24); Bun/Creatinine Ratio 12.4 (12.0-20.0); CO2, Blood 25 mmol/L (21-32); Calcium, Blood 9.3 mg/dL (8.5-10.1); Chloride, Blood 99 mmol/L (98-108); Creatinine, Blood 1.05 mg/dL (0.60-1.20); Globulin, Blood 4.7 g/dL (2.2-4.0); Glomerular Filtration Rate >60 (60-); Glucose, Blood 196 mg/dL (70-99); Potassium, Blood 4.2 mmol/L (3.5-5.5); Sodium, Blood 131 mmol/L (136-145); Total Protein, Blood 8.2 g/dL (6.4-8.2)
[2022-01-06 08:50] LABS: NRBC ABSOLUTE 0.02 K/mm3 (0.00-0.02); NRBC Auto 0.1 /100 WBC (0.0-0.2); White Blood Cell Count 38.98 K/mm3 (4.00-11.30)
[2022-01-06] MEDS ORDERED: FURO20 PO (09:27)
== END 2022-01-06 10:08 | disposition home or self-care (01) ==
LOC: ER 07:41
PROVIDERS: Emergency Medicine
DX: I13.0 Hypertensive heart and chronic kidney disease with heart failure and stage 1 through stage 4 chronic kidney disease, or unspecified chronic kidney disease (principal); E11.22 Type 2 diabetes mellitus with diabetic chronic kidney disease; N18.30 Chronic kidney disease, stage 3 unspecified; I50.9 Heart failure, unspecified; D72.829 Elevated white blood cell count, unspecified; D69.3 Immune thrombocytopenic purpura; Z87.891 Personal history of nicotine dependence; F41.9 Anxiety disorder, unspecified; Z79.4 Long term (current) use of insulin; Z79.899 Other long term (current) drug therapy
CPT/HCPCS: 36415; 71045; 80053; 83880; 84484; 85025; 93005; 93010; J1940

== ENCOUNTER 2022-01-09 09:13 | Emergency (ER) | payer MEDICARE, OTHER ==
[~2022-01-09] VITALS: Ht 172.7 cm; Wt 88.5 kg
[~2022-01-09 09:13] MED LIST changes: +FURO20 PO
[2022-01-09] MEDS ORDERED: CEPH500 PO (10:34)
== END 2022-01-09 11:05 | disposition home or self-care (01) ==
LOC: ER 09:13
DX: L03.012 Cellulitis of left finger (principal); E11.22 Type 2 diabetes mellitus with diabetic chronic kidney disease; I12.9 Hypertensive chronic kidney disease with stage 1 through stage 4 chronic kidney disease, or unspecified chronic kidney disease; N18.30 Chronic kidney disease, stage 3 unspecified; Z79.899 Other long term (current) drug therapy; Z79.4 Long term (current) use of insulin; Z87.891 Personal history of nicotine dependence
CPT/HCPCS: 73130; A9270; J1885

== ENCOUNTER 2022-02-18 16:28 | Emergency (ER) | payer MEDICARE, OTHER ==
[~2022-02-18] VITALS: Ht 172.7 cm; Wt 200.0 kg
[~2022-02-18 16:28] MED LIST changes: +CEPH500 PO; +MAGNESIUM OXID500 MG PO; +Micro-K10 MEQ PO; +NEURONTIN300 MG PO; +Vitamin B-12100 MCG PO
[2022-02-18] MEDS ORDERED: Voltaren100 GM TOP (18:18)
== END 2022-02-18 18:41 | disposition home or self-care (01) ==
LOC: ER 16:28
DX: M25.512 Pain in left shoulder (principal); I12.9 Hypertensive chronic kidney disease with stage 1 through stage 4 chronic kidney disease, or unspecified chronic kidney disease; N18.30 Chronic kidney disease, stage 3 unspecified; E11.22 Type 2 diabetes mellitus with diabetic chronic kidney disease; Z79.899 Other long term (current) drug therapy; Z79.4 Long term (current) use of insulin; Z87.891 Personal history of nicotine dependence
CPT/HCPCS: 73030; A9270

== ENCOUNTER 2022-02-26 17:45 | Inpatient (IN) | payer MEDICARE, OTHER ==
[~2022-02-26] VITALS: Ht 172.7 cm; Wt 93.0 kg
[~2022-02-26 17:45] MED LIST changes: +Voltaren100 GM TOP
[2022-02-26 18:43] LABS: Base Excess Venous 1.1 mmol/L; Bicarbonate Venous 25.1 mmol/L (24.0-30.0); PCO2 Venous 43.9 mmHg (38-42); pH Blood Venous 7.38 (7.34-7.37)
[2022-02-26 18:56] LABS: BASOPHILS ABSOLUTE AUTO 0.23 K/mm3 (0.00-0.23); BASOPHILS PERCENT AUTO 1 % (0-2); EOSINOPHILS PERCENT AUTO 1 % (0-6); Hematocrit 40.1 % (37.0-53.0); IMMATURE GRAN ABSOLUTE AUTO 0.42 K/mm3 (0.00-0.10); IMMATURE GRAN PERCENT AUTO 2 % (0-1); LYMPHOCYTES ABSOLUTE AUTO 2.16 K/mm3 (0.84-5.20); LYMPHOCYTES PERCENT AUTO 9 % (21-46); MONOCYTES ABSOLUTE AUTO 2.73 K/mm3 (0.16-1.47); MONOCYTES PERCENT AUTO 11 % (4-13); Mean Corpuscular HGB 23.2 pg (26.0-34.0); Mean Corpuscular HGB Conc 29.9 g/dL (31.5-36.5); Mean Corpuscular Volume 77 fL (80-100); NEUTROPHILS ABSOLUTE AUTO 19.58 K/mm3 (1.96-9.15); NEUTROPHILS PERCENT AUTO 77 % (41-73); NRBC ABSOLUTE 0.03 K/mm3 (0.00-0.02); NRBC Auto 0.1 /100 WBC (0.0-0.2); RDW Coefficient Variation 24.2 % (11.7-14.2); RDW Standard Deviation 66.7 fL (35.1-46.3); Red Blood Cell Count 5.18 M/mm3 (4.30-5.90); White Blood Cell Count 25.32 K/mm3 (4.00-11.30)
[2022-02-26 19:13] LABS: Albumin, Blood 2.9 g/dL (3.4-5.0); Albumin/Globulin Ratio 0.5 (0.8-1.8); Bilirubin, Total 0.1 mg/dL (0.1-1.0); Bun/Creatinine Ratio 21.9 (12.0-20.0); Calcium, Blood 9.8 mg/dL (8.5-10.1); Creatinine, Blood 0.87 mg/dL (0.60-1.20); Globulin, Blood 5.3 g/dL (2.2-4.0); Potassium, Blood 4.1 mmol/L (3.5-5.5); Total Protein, Blood 8.2 g/dL (6.4-8.2)
[2022-02-26 19:35] LABS: Platelet Count 53 K/mm3 (150-400)
[2022-02-26 20:19] LABS: Source, Urine Clean Catch
[2022-02-26 20:23] LABS: Appearance, Urine Clear (Clear); Bilirubin, Urine Neg (Neg); Blood, Urine 3+ (Neg); Glucose Qualitative, Urine 4+ (Neg); Ketones, Urine Neg (Neg); Leukocyte Esterase, Urine Neg (Neg); Nitrite, Urine Neg (Neg); Protein, Urine 4+ (Neg); Urobilinogen, Urine NORM (Normal)
[2022-02-26 20:40] LABS: Color, Urine Yellow (P-Yellow)
[2022-02-26 20:41] LABS: White Blood Cells, Urine 0-2 /hpf (0-5)
[2022-02-26 20:42] LABS: Bacteria Rare /hpf; Squamous Epithelial Cells Rare /hpf (Few)
[2022-02-26] MEDS ORDERED: MYCO250 PO (20:59)
[2022-02-26] MEDS ORDERED: DOPTELET20 MG PO (21:00)
[2022-02-26] MEDS ORDERED: VITAMIN B125000 MC1 PO (21:01)
[2022-02-26] MEDS ORDERED: HUMALOG KW100 UNIT/1 SQ (21:03)
[2022-02-27 06:49] LABS: BASOPHILS PERCENT AUTO 1 % (0-2); EOSINOPHILS ABSOLUTE AUTO 0.27 K/mm3 (0.00-0.68); EOSINOPHILS PERCENT AUTO 1 % (0-6); Hematocrit 39.2 % (37.0-53.0); Hemoglobin 11.5 g/dL (13.5-17.5); IMMATURE GRAN ABSOLUTE AUTO 0.33 K/mm3 (0.00-0.10); IMMATURE GRAN PERCENT AUTO 1 % (0-1); LYMPHOCYTES ABSOLUTE AUTO 2.63 K/mm3 (0.84-5.20); LYMPHOCYTES PERCENT AUTO 11 % (21-46); MONOCYTES ABSOLUTE AUTO 2.78 K/mm3 (0.16-1.47); MONOCYTES PERCENT AUTO 11 % (4-13); Mean Corpuscular HGB 23.2 pg (26.0-34.0); Mean Corpuscular HGB Conc 29.3 g/dL (31.5-36.5); Mean Corpuscular Volume 79 fL (80-100); NEUTROPHILS PERCENT AUTO 75 % (41-73); NRBC ABSOLUTE 0.02 K/mm3 (0.00-0.02); NRBC Auto 0.1 /100 WBC (0.0-0.2); RDW Coefficient Variation 24.1 % (11.7-14.2); RDW Standard Deviation 68.2 fL (35.1-46.3); Red Blood Cell Count 4.96 M/mm3 (4.30-5.90); White Blood Cell Count 24.61 K/mm3 (4.00-11.30)
[2022-02-27 07:02] LABS: Albumin, Blood 2.7 g/dL (3.4-5.0); Albumin/Globulin Ratio 0.6 (0.8-1.8); Bilirubin, Total 0.2 mg/dL (0.1-1.0); Bun/Creatinine Ratio 22.4 (12.0-20.0); Calcium, Blood 9.4 mg/dL (8.5-10.1); Creatinine, Blood 0.76 mg/dL (0.60-1.20); Globulin, Blood 4.9 g/dL (2.2-4.0); Potassium, Blood 3.9 mmol/L (3.5-5.5); Total Protein, Blood 7.6 g/dL (6.4-8.2)
[2022-02-27 07:07] LABS: Platelet Count 46 K/mm3 (150-400)
--- NOTE | 2022-02-27 17:13 | NUR ---
SHIFT SUMMARY PT HAS BEEN SLEEPING OFF AND ON SINCE ARRIVING ON THE UNIT. PT C/O 8/10 LEFT SHOULDER AND LEFT UPPER QUADRANT PAIN ON ARRIVAL THAT WAS TREATED PER EMAR, PT REPORTED 6/10 PAIN ON REASSESSMENT. AT 1600 VITALS CHECK PT REPORTED THEIR PAIN WAS "DOING OK" AND DID NOT OFFER A SCALE WHEN PROMPTED. TEMPERATURE HAS SLOWLY CLIMBED, T.MAX 99.8. ALL OTHER VITALS STABLE.
--- NOTE | 2022-02-28 06:18 | NUR ---
SHIFT SUMMARY PT ALERT AND ORIENTED X4. SR/ST 80-100'S. BP STABLE. ON RA SATS OVER 90%. TEMPERATURE LOW 100'S TONIGHT, RELIEVED WITH TYLENOL. COMPLAINT OF LUQ PAIN, 6-8/10, RELIEVED PER EMAR. SWITCHED TO AC/HS COVERAGE FOR HIGH HS CBG OF 287. ASLEEP MOST OF NIGHT. INDEPENDENT FOR ADL'S. IN BED SLEEPING WITH CALL ALARM AT SIDE, WILL CONTINUE TO MONITOR UNTIL REPORT GIVEN TO DAYSHIFT RN
[2022-02-28 08:45] LABS: BASOPHILS ABSOLUTE AUTO 0.22 K/mm3 (0.00-0.23); BASOPHILS PERCENT AUTO 1 % (0-2); EOSINOPHILS ABSOLUTE AUTO 0.21 K/mm3 (0.00-0.68); EOSINOPHILS PERCENT AUTO 1 % (0-6); Hematocrit 39.5 % (37.0-53.0); Hemoglobin 11.7 g/dL (13.5-17.5); IMMATURE GRAN ABSOLUTE AUTO 0.45 K/mm3 (0.00-0.10); IMMATURE GRAN PERCENT AUTO 2 % (0-1); LYMPHOCYTES PERCENT AUTO 10 % (21-46); MONOCYTES ABSOLUTE AUTO 3.48 K/mm3 (0.16-1.47); MONOCYTES PERCENT AUTO 13 % (4-13); Mean Corpuscular HGB 23.4 pg (26.0-34.0); Mean Corpuscular HGB Conc 29.6 g/dL (31.5-36.5); Mean Corpuscular Volume 79 fL (80-100); NEUTROPHILS ABSOLUTE AUTO 19.91 K/mm3 (1.96-9.15); NEUTROPHILS PERCENT AUTO 74 % (41-73); Platelet Count 60 K/mm3 (150-400); RDW Coefficient Variation 24.7 % (11.7-14.2); White Blood Cell Count 27.07 K/mm3 (4.00-11.30)
[2022-02-28 09:02] LABS: Albumin, Blood 2.5 g/dL (3.4-5.0); Anion Gap 7 mmol/L (6-16); Blood Urea Nitrogen 14 mg/dL (8-24); Bun/Creatinine Ratio 15.2 (12.0-20.0); CO2, Blood 28 mmol/L (21-32); Calcium, Blood 9.4 mg/dL (8.5-10.1); Chloride, Blood 100 mmol/L (98-108); Creatinine, Blood 0.92 mg/dL (0.60-1.20); Glomerular Filtration Rate 92 (60-); Glucose, Blood 269 mg/dL (70-99); Sodium, Blood 135 mmol/L (136-145)
--- NOTE | 2022-02-28 15:20 | NUR ---
SHIFT SUMMARY PT HAS BEEN INDEPENDENT IN ROOM. PT C/O 04/11 LEFT UPPER QUADRANT PAIN, DESCRIBED A NON-RADIATING, THROBBING ACHE. PAIN IS WELL MANAGED WITH CURRENT MEDICATION REGIMEN, PAIN IS REDUCED TO PT'S SATISFACTION. PT DEMONSTRATED A TEMPERATURE OF 100.0 F THIS AM THAT WAS CONTROLLED WITH ACETAMINOPHEN. PT HAS HAD NO FURTHER COMPLAINTS OR CONCERNS. ALL OTHER VITAL SIGNS STABLE, NO ACUTE CHANGE IN CONDITION.
[2022-03-01 04:56] LABS: Hemoglobin 11.1 g/dL (13.5-17.5); Mean Corpuscular HGB 23.4 pg (26.0-34.0); Mean Corpuscular HGB Conc 29.2 g/dL (31.5-36.5); Mean Corpuscular Volume 80 fL (80-100); NRBC ABSOLUTE 0.02 K/mm3 (0.00-0.02); NRBC Auto 0.1 /100 WBC (0.0-0.2); Platelet Count 56 K/mm3 (150-400); Red Blood Cell Count 4.75 M/mm3 (4.30-5.90); White Blood Cell Count 28.95 K/mm3 (4.00-11.30)
[2022-03-01 05:16] LABS: Albumin, Blood 2.4 g/dL (3.4-5.0); Anion Gap 6 mmol/L (6-16); Blood Urea Nitrogen 15 mg/dL (8-24); Bun/Creatinine Ratio 16.4 (12.0-20.0); CO2, Blood 29 mmol/L (21-32); Calcium, Blood 9.3 mg/dL (8.5-10.1); Chloride, Blood 99 mmol/L (98-108); Creatinine, Blood 0.91 mg/dL (0.60-1.20); Glomerular Filtration Rate 94 (60-); Glucose, Blood 253 mg/dL (70-99); Phosphorus, Blood 3.9 mg/dL (2.5-4.9); Potassium, Blood 4.3 mmol/L (3.5-5.5); Sodium, Blood 134 mmol/L (136-145)
[2022-03-01 05:17] LABS: BAND PERCENT MAN 6 % (0-8); BASOPHILS ABSOLUTE MAN 0.57 K/mm3 (0.00-0.23); BASOPHILS PERCENT MAN 2 % (0-2); EOSINOPHILS PERCENT MAN 0 % (0-6); LYMPHOCYTES PERCENT MAN 9 % (21-46); MONOCYTES ABSOLUTE MAN 2.02 K/mm3 (0.16-1.47); MONOCYTES PERCENT MAN 7 % (4-13); MYELOCYTE ABSOLUTE MAN 0.28 K/mm3 (0.00-0.00); MYELOCYTE PERCENT MAN 1 % (0-0); NEUTROPHILS ABSOLUTE MAN 23.44 K/mm3 (1.96-9.15); SEG NEUTROPHILS PERCENT MAN 75 % (41-73); TOTAL CELLS COUNTED 100
--- NOTE | 2022-03-01 05:25 | NUR ---
SHIFT SUMMARY PT ALERT AND ORIENTED X4. BP STABLE. AFEBRILE. SATS OVER 90% ON RA. C/O LUQ PAIN 8/10, RELIEVED PER EMAR. C/O NAUSEA, RELIEVED PER EMAR. ASLEEP MOST OF NIGHT. INDEPENDENT FOR ADL'S. IN BED WITH CALL ALARM AT SIDE, WILL CONTINUE TO MONITOR UNTIL REPORT GIVEN TO DAYSHIFT RN
--- NOTE | 2022-03-01 07:23 | NUR ---
CARE ASSUMPTION PT REPORTING 10/ "SHARP, SHOOTING, STABBING" PAIN IN LUQ, STATING PAIN "INTENSIFYING SINCE THIS MORNING." PT W/ INCISION TO L ABD THAT PT REPORTS BEING FROM "SPLEEN REMOVAL October." SITE NOTED W/ REDNESS & SWELLING WHERE PT STATES "IT FEELS LIKE IT'S GOING TO RUPTURE." MEPILEX DRESSING PLACED OVER BULGING SITE. PT MEDICATED FOR PAIN PER EMAR/PT REQUEST.
--- NOTE | 2022-03-01 09:04 | NUR ---
TRANSFER NOTE PT MEDICAL NO TELE STATUS. A&O X4. VSS. SPO2 > 92% ON RA. PT C/O 06/11 LUQ ABD PAIN AT INCISION SITE (SEE PREVIOUS NOTE). PT MEDICATED W/ PRN PO OXYCODONE PER EMAR W/ PT REPORT OF PAIN DECREASE TO 02/09. REPORT GIVEN TO ACCEPTING SURGICAL FLOOR RN ASSUMING CARE OF PT. PT TAKEN TO RM 209 BY PCT IN WHEELCHAIR W/ BELONGINGS @ APPROX 0900.
--- NOTE | 2022-03-01 17:19 | NUR ---
SHIFT SUMMARY PCU TRANSFER APPROX 0900. A&OX4, VSS/RA. BEDSIDE I&D WITH SURGEON, CULTURE SENT TO LAB, PACKED WITH ALGINATE AND COVERED WITH MEPILEX DRESSING, CHANGED ONCE AT 1200, DRESSING IS DRY/INTACT AT THIS TIME. PT REP IMPROVED PAIN, ONLY TREATED 1X FOLLOWING I&D WITH 5 MG OXY AND TYLENOL. BONNIE PO. VOIDING WELL. AMB INDEPENDENTLY IN ROOM/TO BRP. ABX INFUSING PER EMAR. WILL REPORT TO ONCOMING NOC RN.
--- NOTE | 2022-03-02 05:11 | NUR ---
INSTRUCTOR [employer]PAR[employer]URE SUMMARY NO ACUTE CHANGES THIS SHIFT. PT POD 0 FOR WOUND I&D ON LUQ. MEDICATED FOR PAIN Q4-5 HRS PER EMAR WITH GOOD PAIN CONTROL. VANCO INFUSING Q8H. VSS, WILL CONTINUE TO MONITOR.
[2022-03-02 05:25] LABS: Hematocrit 37.3 % (37.0-53.0); Mean Corpuscular HGB 23.2 pg (26.0-34.0); Mean Corpuscular HGB Conc 29.5 g/dL (31.5-36.5); Mean Corpuscular Volume 79 fL (80-100); Platelet Count 144 K/mm3 (150-400); RDW Standard Deviation 67.7 fL (35.1-46.3); Red Blood Cell Count 4.74 M/mm3 (4.30-5.90)
[2022-03-02 05:33] LABS: BASOPHILS ABSOLUTE AUTO 0.23 K/mm3 (0.00-0.23); BASOPHILS PERCENT AUTO 1 % (0-2); EOSINOPHILS ABSOLUTE AUTO 0.52 K/mm3 (0.00-0.68); EOSINOPHILS PERCENT AUTO 2 % (0-6); IMMATURE GRAN ABSOLUTE AUTO 0.61 K/mm3 (0.00-0.10); IMMATURE GRAN PERCENT AUTO 3 % (0-1); LYMPHOCYTES ABSOLUTE AUTO 2.47 K/mm3 (0.84-5.20); LYMPHOCYTES PERCENT AUTO 10 % (21-46); MONOCYTES PERCENT AUTO 14 % (4-13); NEUTROPHILS ABSOLUTE AUTO 16.72 K/mm3 (1.96-9.15); NEUTROPHILS PERCENT AUTO 70 % (41-73); NRBC ABSOLUTE 0.03 K/mm3 (0.00-0.02); NRBC Auto 0.1 /100 WBC (0.0-0.2); White Blood Cell Count 23.75 K/mm3 (4.00-11.30)
[2022-03-02 05:49] LABS: Albumin, Blood 2.4 g/dL (3.4-5.0); Anion Gap 6 mmol/L (6-16); Blood Urea Nitrogen 17 mg/dL (8-24); Bun/Creatinine Ratio 18.3 (12.0-20.0); CO2, Blood 30 mmol/L (21-32); Calcium, Blood 9.4 mg/dL (8.5-10.1); Chloride, Blood 97 mmol/L (98-108); Creatinine, Blood 0.93 mg/dL (0.60-1.20); Glomerular Filtration Rate 91 (60-); Glucose, Blood 195 mg/dL (70-99); Phosphorus, Blood 3.6 mg/dL (2.5-4.9); Potassium, Blood 4.1 mmol/L (3.5-5.5); Sodium, Blood 133 mmol/L (136-145)
[2022-03-02 11:37] LABS: Vancomycin, Trough 15.4 ug/mL (5.0-10.0)
--- NOTE | 2022-03-02 18:13 | NUR ---
SHIFT SUMMARY PT A&OX4, VSS/RA, CBGS ACHS/HIGH SLIDING SCALE; CNI INDICATED FOR DINNER. POD1 BEDSIDE I&D ABD INCISION, PACKED WITH ALGINATE AND COVERED WITH MEPILEX, CHANGED ONCE THIS SHIFT, AWAITING CULTURE RESULTS. PAIN MANAGED WITH OXY 5 PRN, GIVEN 1X THIS SHIFT. IV SL/VANCO Q8. ABD DISTENDED, PT REP PASSING FLATUS, ENC PT TO WALK HALLWAYS X4 MINIMUM. AMBULATING INDEPENDENTLY TO BRP, VOIDING WELL. BONNIE PO. WILL REPORT TO ONCOMING NOC RN.
--- NOTE | 2022-03-03 04:47 | NUR ---
ASSUMED CARE OF PT AT 1900. NO ACUTE CHANGES THIS SHIFT. PT IS A&OX4, INDEPENDENT IN ROOM AND IS ABLE TO MAKE NEEDS KNOWN. HAS INCISION L ABD WIT BANDAGE IN PLACE, BANDAGE IS CDI. PAIN IS CONTROLLED WITH PRN NICOLE 5MG. PT ABLE TO SLEEP 6+ HOURS THIS SHIFT. VSS. WILL CONTINUE TO MONITOR AND GIVE HANDOFF REPORT TO ONCOMING RN
[2022-03-03 04:54] LABS: Hematocrit 36.8 % (37.0-53.0); Hemoglobin 10.7 g/dL (13.5-17.5); Mean Corpuscular HGB 22.8 pg (26.0-34.0); Mean Corpuscular HGB Conc 29.1 g/dL (31.5-36.5); Mean Corpuscular Volume 79 fL (80-100); NRBC ABSOLUTE 0.02 K/mm3 (0.00-0.02); NRBC Auto 0.1 /100 WBC (0.0-0.2); Platelet Count 424 K/mm3 (150-400); RDW Coefficient Variation 24.7 % (11.7-14.2); RDW Standard Deviation 68.3 fL (35.1-46.3); Red Blood Cell Count 4.69 M/mm3 (4.30-5.90); White Blood Cell Count 24.73 K/mm3 (4.00-11.30)
[2022-03-03 05:09] LABS: Albumin, Blood 2.4 g/dL (3.4-5.0); Anion Gap 5 mmol/L (6-16); Blood Urea Nitrogen 16 mg/dL (8-24); Bun/Creatinine Ratio 18.1 (12.0-20.0); CO2, Blood 30 mmol/L (21-32); Calcium, Blood 9.6 mg/dL (8.5-10.1); Chloride, Blood 98 mmol/L (98-108); Creatinine, Blood 0.88 mg/dL (0.60-1.20); Glomerular Filtration Rate 95 (60-); Glucose, Blood 180 mg/dL (70-99); Phosphorus, Blood 4.4 mg/dL (2.5-4.9); Potassium, Blood 4.3 mmol/L (3.5-5.5); Sodium, Blood 133 mmol/L (136-145)
[2022-03-03 05:36] LABS: BAND PERCENT MAN 1 % (0-8); BASOPHILS ABSOLUTE MAN 0.24 K/mm3 (0.00-0.23); BASOPHILS PERCENT MAN 1 % (0-2); EOSINOPHILS ABSOLUTE MAN 1.23 K/mm3 (0.00-0.68); EOSINOPHILS PERCENT MAN 5 % (0-6); LYMPHOCYTES ABSOLUTE MAN 3.46 K/mm3 (0.84-5.20); LYMPHOCYTES PERCENT MAN 14 % (21-46); METAMYELOCYTE ABSOLUTE MAN 0.49 K/mm3 (0.00-0.00); METAMYELOCYTE PERCENT MAN 2 % (0-0); MONOCYTES PERCENT MAN 15 % (4-13); NEUTROPHILS ABSOLUTE MAN 15.57 K/mm3 (1.96-9.15); SEG NEUTROPHILS PERCENT MAN 62 % (41-73); TOTAL CELLS COUNTED 100
--- NOTE | 2022-03-03 07:35 | NUR ---
ASSUMED CARE: PT RESTING QUIETLY AT THIS TIME. NO ACUTE NEEDS OR CONCERNS NOTED AT THIS TIME.
[2022-03-03] MEDS ORDERED: VISBIOME 112.51 EACH PO (12:35)
[2022-03-03] MEDS ORDERED: CLIN300 PO (12:35)
--- NOTE | 2022-03-03 13:30 | NUR ---
PT COMPLETED IV ABX AND THEN IV WAS DC'D WNL. INSTRUCTED PT REGARDING FOLLOW UP APPOINTMENTS AND MEDICATIONS. PT AMBULATORY UPON DISCHARGE.
[2022-03-05] MEDS ORDERED: NPLATE SC (15:09)
[2022-03-09] MEDS ORDERED: CUBICIN RF500 M1 IV (11:59)
[2022-03-09] MEDS ORDERED: DOCU100 PO (12:00)
== END 2022-03-03 13:20 | disposition home or self-care (01) | DRG 854 ==
LOC: ER 17:45 → ERHOLD 02-27 02:12 → PCU 02-27 13:38 → SURS 03-01 09:07
PROVIDERS: Family Medicine; Physician Assistant; ADMIT Internal Medicine
PROC: 0W9F0ZZ Drainage of Abdominal Wall, Open Approach (ICD-10-PCS; principal; 2022-03-01)
DX: A41.9 Sepsis, unspecified organism (principal); D69.3 Immune thrombocytopenic purpura; L02.211 Cutaneous abscess of abdominal wall; E87.1 Hypo-osmolality and hyponatremia; I13.0 Hypertensive heart and chronic kidney disease with heart failure and stage 1 through stage 4 chronic kidney disease, or unspecified chronic kidney disease; T81.43XA Infection following a procedure, organ and space surgical site, initial encounter; B95.62 Methicillin resistant Staphylococcus aureus infection as the cause of diseases classified elsewhere; D63.1 Anemia in chronic kidney disease; I50.9 Heart failure, unspecified; N18.9 Chronic kidney disease, unspecified; D72.829 Elevated white blood cell count, unspecified; E11.22 Type 2 diabetes mellitus with diabetic chronic kidney disease; F41.9 Anxiety disorder, unspecified; I25.2 Old myocardial infarction; Z90.89 Acquired absence of other organs; Z90.81 Acquired absence of spleen; Z79.4 Long term (current) use of insulin; Z87.891 Personal history of nicotine dependence; Z79.899 Other long term (current) drug therapy
CPT/HCPCS: 36415; 74177; 80053; 80069; 80202; 81001; 82010; 82803; 82947; 83605; 83690; 84145; 85025; 87040; 87070; 87075; 87077; 87186; 87205; 96361; 96374; 99285-25; A9270; J0690; J0696; J1815; J3010; J3370; J7030; J7060; J7517; Q9967

== ENCOUNTER 2022-03-15 00:53 | Day surgery (SDC) | payer MEDICARE, OTHER ==
[~2022-03-15 00:53] MED LIST changes: +CUBICIN RF500 M1 IV; +DOCU100 PO; +HUMALOG KW100 UNIT/1 SQ; +VITAMIN B125000 MC1 PO
[2022-03-15 10:06] LABS: BASOPHILS ABSOLUTE AUTO 0.26 K/mm3 (0.00-0.23); BASOPHILS PERCENT AUTO 2 % (0-2); EOSINOPHILS ABSOLUTE AUTO 0.37 K/mm3 (0.00-0.68); EOSINOPHILS PERCENT AUTO 2 % (0-6); Hematocrit 40.7 % (37.0-53.0); Hemoglobin 12.1 g/dL (13.5-17.5); IMMATURE GRAN ABSOLUTE AUTO 0.15 K/mm3 (0.00-0.10); IMMATURE GRAN PERCENT AUTO 1 % (0-1); LYMPHOCYTES PERCENT AUTO 17 % (21-46); MONOCYTES ABSOLUTE AUTO 1.98 K/mm3 (0.16-1.47); MONOCYTES PERCENT AUTO 12 % (4-13); Mean Corpuscular HGB 23.5 pg (26.0-34.0); Mean Corpuscular HGB Conc 29.7 g/dL (31.5-36.5); Mean Corpuscular Volume 79 fL (80-100); NEUTROPHILS ABSOLUTE AUTO 10.95 K/mm3 (1.96-9.15); NEUTROPHILS PERCENT AUTO 66 % (41-73); NRBC ABSOLUTE 0.02 K/mm3 (0.00-0.02); NRBC Auto 0.1 /100 WBC (0.0-0.2); Platelet Count 202 K/mm3 (150-400); RDW Coefficient Variation 24.8 % (11.7-14.2); RDW Standard Deviation 69.6 fL (35.1-46.3); Red Blood Cell Count 5.14 M/mm3 (4.30-5.90); White Blood Cell Count 16.51 K/mm3 (4.00-11.30)
[2022-03-15 10:16] LABS: Calcium, Blood 9.3 mg/dL (8.5-10.1); Creatinine, Blood 0.95 mg/dL (0.60-1.20); Potassium, Blood 4.3 mmol/L (3.5-5.5)
[2022-05-15] MEDS ORDERED: Pepcid20 MG PO (14:45)
[2022-05-15] MEDS ORDERED: Bactrim Ds Tab1 EACH PO (14:45)
== END 2022-03-15 09:38 | disposition home or self-care (01) ==
LOC: ATC 00:53
PROVIDERS: Internal Medicine
DX: D69.3 Immune thrombocytopenic purpura (principal); I12.9 Hypertensive chronic kidney disease with stage 1 through stage 4 chronic kidney disease, or unspecified chronic kidney disease; N18.30 Chronic kidney disease, stage 3 unspecified; E11.22 Type 2 diabetes mellitus with diabetic chronic kidney disease; Z79.899 Other long term (current) drug therapy
CPT/HCPCS: 36592; 80048; 82550; 85025

== ENCOUNTER 2022-03-22 01:26 | Day surgery (SDC) | payer MEDICARE, OTHER ==
[2022-03-22 12:39] LABS: BASOPHILS ABSOLUTE AUTO 0.28 K/mm3 (0.00-0.23); BASOPHILS PERCENT AUTO 2 % (0-2); EOSINOPHILS PERCENT AUTO 3 % (0-6); Hematocrit 39.1 % (37.0-53.0); Hemoglobin 11.4 g/dL (13.5-17.5); IMMATURE GRAN ABSOLUTE AUTO 0.22 K/mm3 (0.00-0.10); IMMATURE GRAN PERCENT AUTO 1 % (0-1); LYMPHOCYTES PERCENT AUTO 17 % (21-46); MONOCYTES ABSOLUTE AUTO 2.21 K/mm3 (0.16-1.47); MONOCYTES PERCENT AUTO 14 % (4-13); Mean Corpuscular HGB 23.3 pg (26.0-34.0); Mean Corpuscular HGB Conc 29.2 g/dL (31.5-36.5); Mean Corpuscular Volume 80 fL (80-100); NEUTROPHILS ABSOLUTE AUTO 10.37 K/mm3 (1.96-9.15); NEUTROPHILS PERCENT AUTO 64 % (41-73); NRBC ABSOLUTE 0.02 K/mm3 (0.00-0.02); NRBC Auto 0.1 /100 WBC (0.0-0.2); Platelet Count 84 K/mm3 (150-400); RDW Coefficient Variation 24.7 % (11.7-14.2); RDW Standard Deviation 70.2 fL (35.1-46.3); Red Blood Cell Count 4.89 M/mm3 (4.30-5.90); White Blood Cell Count 16.28 K/mm3 (4.00-11.30)
[2022-03-22 12:58] LABS: Bun/Creatinine Ratio 21.2 (12.0-20.0); Calcium, Blood 9.2 mg/dL (8.5-10.1); Creatinine, Blood 0.85 mg/dL (0.60-1.20); Potassium, Blood 4.4 mmol/L (3.5-5.5)
== END 2022-03-22 10:55 | disposition home or self-care (01) ==
LOC: ATC 01:26
PROVIDERS: Internal Medicine
DX: A41.9 Sepsis, unspecified organism (principal); L02.818 Cutaneous abscess of other sites; I12.9 Hypertensive chronic kidney disease with stage 1 through stage 4 chronic kidney disease, or unspecified chronic kidney disease; E11.22 Type 2 diabetes mellitus with diabetic chronic kidney disease; N18.30 Chronic kidney disease, stage 3 unspecified; I25.2 Old myocardial infarction; D69.3 Immune thrombocytopenic purpura; Z87.891 Personal history of nicotine dependence
CPT/HCPCS: 36592; 80048; 82550; 85025

== ENCOUNTER 2022-03-25 12:01 | Inpatient (IN) | payer MEDICARE, OTHER ==
[~2022-03-25] VITALS: Ht 175.3 cm; Wt 89.7 kg
[2022-03-25 12:45] LABS: Hematocrit 42.1 % (37.0-53.0); Hemoglobin 12.4 g/dL (13.5-17.5); Mean Corpuscular HGB 23.5 pg (26.0-34.0); Mean Corpuscular HGB Conc 29.5 g/dL (31.5-36.5); Mean Corpuscular Volume 80 fL (80-100); Platelet Count 288 K/mm3 (150-400); RDW Coefficient Variation 24.4 % (11.7-14.2); Red Blood Cell Count 5.28 M/mm3 (4.30-5.90)
[2022-03-25 12:50] LABS: White Blood Cell Count 20.84 K/mm3 (4.00-11.30)
[2022-03-25 12:51] LABS: NRBC ABSOLUTE 0.02 K/mm3 (0.00-0.02); NRBC Auto 0.1 /100 WBC (0.0-0.2)
[2022-03-25 13:03] LABS: Albumin, Blood 3.2 g/dL (3.4-5.0); Albumin/Globulin Ratio 0.7 (0.8-1.8); Bilirubin, Total 0.2 mg/dL (0.1-1.0); Bun/Creatinine Ratio 15.7 (12.0-20.0); Calcium, Blood 9.2 mg/dL (8.5-10.1); Creatinine, Blood 1.02 mg/dL (0.60-1.20); Globulin, Blood 4.6 g/dL (2.2-4.0); Potassium, Blood 4.5 mmol/L (3.5-5.5); Total Protein, Blood 7.8 g/dL (6.4-8.2)
[2022-03-25 13:06] LABS: BASOPHILS ABSOLUTE MAN 0.62 K/mm3 (0.00-0.23); BASOPHILS PERCENT MAN 3 % (0-2); EOSINOPHILS ABSOLUTE MAN 0.41 K/mm3 (0.00-0.68); EOSINOPHILS PERCENT MAN 2 % (0-6); LYMPHOCYTES ABSOLUTE MAN 3.95 K/mm3 (0.84-5.20); LYMPHOCYTES PERCENT MAN 19 % (21-46); MONOCYTES ABSOLUTE MAN 2.91 K/mm3 (0.16-1.47); MONOCYTES PERCENT MAN 14 % (4-13); NEUTROPHILS ABSOLUTE MAN 12.92 K/mm3 (1.96-9.15); SEG NEUTROPHILS PERCENT MAN 62 % (41-73); TOTAL CELLS COUNTED 100
[2022-03-25 15:55] LABS: SARS-Cov-2 (COVID-19) PCR, MMC NEGATIVE (NEGATIVE)
[2022-03-26 05:25] LABS: Hematocrit 40.3 % (37.0-53.0); Hemoglobin 11.9 g/dL (13.5-17.5); Mean Corpuscular HGB 23.6 pg (26.0-34.0); Mean Corpuscular HGB Conc 29.5 g/dL (31.5-36.5); Mean Corpuscular Volume 80 fL (80-100); NRBC ABSOLUTE 0.02 K/mm3 (0.00-0.02); NRBC Auto 0.1 /100 WBC (0.0-0.2); Platelet Count 156 K/mm3 (150-400); RDW Coefficient Variation 24.5 % (11.7-14.2); RDW Standard Deviation 68.8 fL (35.1-46.3); Red Blood Cell Count 5.04 M/mm3 (4.30-5.90); White Blood Cell Count 18.04 K/mm3 (4.00-11.30)
[2022-03-26 05:49] LABS: Bun/Creatinine Ratio 20.9 (12.0-20.0); Calcium, Blood 9.3 mg/dL (8.5-10.1); Creatinine, Blood 0.91 mg/dL (0.60-1.20); Potassium, Blood 3.9 mmol/L (3.5-5.5)
--- NOTE | 2022-03-26 10:45 | NUR ---
PT ADMITTED TO FLOOR FROM DAY SURG, AND PRIOR ADMIT FROM ER. NOW POST OP. ABD SITE. MID LOW LEFT. COVERED BY GAUZE PAD. CDI. NO DRAINIGE NOTED. NO TUBES/HOSES. PT A/O X3 PLEASANT, QUIET AT THIS TIME. HR REG, NO MURMUR NOTED. NO TELE. LUNGS CLEAR,RESP EASY, UNLABORED. ON R.A. BT X4 VOIDS URINAL OR SBA TO BATHROOM. PT AMBULATORY AT BASELINE. BED IN LOW POSITION, CALL LITE IN REACH, CALLS APPROP. AT BEDSIDE
--- NOTE | 2022-03-26 16:55 | NUR ---
PT PLEASNT SINCE RETURN TO ROOM FROM DAY SURGERY. IN ROOM. NO C/O PAIN. HAVE OFFERED, BUT DENIES. DRESSING CDI AT THIS TIME. EATING WELL. CALLED DR AND AM CHANGING CBG TO AC/HS. NO NEW CHANGES. BED IN LOW POSITION, CALL LITE IN REACH, CALLS APPROP. STANDS TO URIINATE AT BEDSIDE.
--- NOTE | 2022-03-27 04:39 | NUR ---
SHIFT SUMMARY A/OX4, IND IN ROOM. DRESSING TO LUQ C/D/I. C/O 02/09 PAIN, MEDICATED PER EMAR X1. NS RUNNING AT 100 ML/HR. VSS, NO ACUTE CHANGES AT THIS TIME. BED IN LOWEST POSITION WITH CALL LIGHT IN REACH. WILL CONTINUE TO MONITOR AND REPORT TO ONCOMING RN.
[2022-03-27 08:21] LABS: BASOPHILS PERCENT AUTO 1 % (0-2); EOSINOPHILS ABSOLUTE AUTO 0.88 K/mm3 (0.00-0.68); EOSINOPHILS PERCENT AUTO 6 % (0-6); Hematocrit 37.5 % (37.0-53.0); Hemoglobin 11.3 g/dL (13.5-17.5); IMMATURE GRAN ABSOLUTE AUTO 0.11 K/mm3 (0.00-0.10); IMMATURE GRAN PERCENT AUTO 1 % (0-1); LYMPHOCYTES ABSOLUTE AUTO 2.92 K/mm3 (0.84-5.20); LYMPHOCYTES PERCENT AUTO 21 % (21-46); MONOCYTES ABSOLUTE AUTO 1.72 K/mm3 (0.16-1.47); MONOCYTES PERCENT AUTO 12 % (4-13); Mean Corpuscular HGB Conc 30.1 g/dL (31.5-36.5); Mean Corpuscular Volume 80 fL (80-100); NEUTROPHILS ABSOLUTE AUTO 8.13 K/mm3 (1.96-9.15); NEUTROPHILS PERCENT AUTO 58 % (41-73); Platelet Count 92 K/mm3 (150-400); RDW Coefficient Variation 24.2 % (11.7-14.2); White Blood Cell Count 13.96 K/mm3 (4.00-11.30)
[2022-03-27 08:28] LABS: Vancomycin, Trough 14.7 ug/mL (5.0-10.0)
[2022-03-27] MEDS ORDERED: VISBIOME 112.51 EACH PO (15:39)
--- NOTE | 2022-03-27 17:16 | NUR ---
PT DISCHARGED THE PT VERBALIZED UNDERSTANDING OF THE DC INSTRUCTIONS. THE PTS PRESCRIPTION FAXED TO [facility] TIARA GERONIMO REQUESTED. FOLLOW UP APPOINTMENTS MADE PRIOR TO DC. PT TRANSFERED VIA WHEELCHAIR TO THE FRONT. PT WAS GIVEN WOUND CARE SUPPLIES
== END 2022-03-27 16:15 | disposition home or self-care (01) | DRG 856 ==
LOC: ER 12:01 → MEDS 17:14 → ERHOLD 17:14 → MEDS 03-26 10:48
PROVIDERS: Nurse Practitioner Acute Care; Physician Assistant; Student in an Organized Health Care Education/Training Program; Surgery; ADMIT Internal Medicine
PROC: 3E03329 Introduction of Other Anti-infective into Peripheral Vein, Percutaneous Approach (ICD-10-PCS; 2022-03-25)
PROC: 0W9F0ZZ Drainage of Abdominal Wall, Open Approach (ICD-10-PCS; principal; 2022-03-26 09:00)
DX: T81.40XA Infection following a procedure, unspecified, initial encounter (principal); A41.9 Sepsis, unspecified organism; D69.3 Immune thrombocytopenic purpura; L02.211 Cutaneous abscess of abdominal wall; T81.44XA Sepsis following a procedure, initial encounter; F41.9 Anxiety disorder, unspecified; I25.10 Atherosclerotic heart disease of native coronary artery without angina pectoris; N18.30 Chronic kidney disease, stage 3 unspecified; E11.22 Type 2 diabetes mellitus with diabetic chronic kidney disease; I12.9 Hypertensive chronic kidney disease with stage 1 through stage 4 chronic kidney disease, or unspecified chronic kidney disease; K21.9 Gastro-esophageal reflux disease without esophagitis; Z20.822 Contact with and (suspected) exposure to COVID-19; Z79.899 Other long term (current) drug therapy; Z79.4 Long term (current) use of insulin; Z79.01 Long term (current) use of anticoagulants; Z79.891 Long term (current) use of opiate analgesic; Z79.2 Long term (current) use of antibiotics; Z90.81 Acquired absence of spleen; Z87.891 Personal history of nicotine dependence; I25.2 Old myocardial infarction; Z98.890 Other specified postprocedural states
CPT/HCPCS: 36415; 74177; 80048; 80053; 80202; 82947; 83690; 85025; 85027; 87040; 87070; 87075; 87205; 93005; 93010; 94760; 99285-25; A9270; J0295; J1100; J1815; J1885; J1956; J2250; J2405; J2704; J2795; J3010; J3370; J7030; J7050; J7060; J7120; Q9967; U0004

== ENCOUNTER 2022-03-29 01:48 | Day surgery (SDC) | payer MEDICARE, OTHER ==
[2022-03-29 12:07] LABS: BASOPHILS PERCENT AUTO 2 % (0-2); EOSINOPHILS ABSOLUTE AUTO 0.77 K/mm3 (0.00-0.68); EOSINOPHILS PERCENT AUTO 5 % (0-6); Hematocrit 43.6 % (37.0-53.0); Hemoglobin 12.8 g/dL (13.5-17.5); IMMATURE GRAN ABSOLUTE AUTO 0.18 K/mm3 (0.00-0.10); IMMATURE GRAN PERCENT AUTO 1 % (0-1); LYMPHOCYTES ABSOLUTE AUTO 2.99 K/mm3 (0.84-5.20); LYMPHOCYTES PERCENT AUTO 19 % (21-46); MONOCYTES ABSOLUTE AUTO 2.04 K/mm3 (0.16-1.47); MONOCYTES PERCENT AUTO 13 % (4-13); Mean Corpuscular HGB 23.6 pg (26.0-34.0); Mean Corpuscular HGB Conc 29.4 g/dL (31.5-36.5); Mean Corpuscular Volume 80 fL (80-100); NEUTROPHILS ABSOLUTE AUTO 9.39 K/mm3 (1.96-9.15); NEUTROPHILS PERCENT AUTO 60 % (41-73); RDW Coefficient Variation 24.9 % (11.7-14.2); RDW Standard Deviation 68.8 fL (35.1-46.3); Red Blood Cell Count 5.43 M/mm3 (4.30-5.90); White Blood Cell Count 15.67 K/mm3 (4.00-11.30)
[2022-03-29 12:16] LABS: Platelet Count 239 K/mm3 (150-400)
[2022-03-29 12:18] LABS: Bun/Creatinine Ratio 13.9 (12.0-20.0); Calcium, Blood 9.3 mg/dL (8.5-10.1); Creatinine, Blood 0.93 mg/dL (0.60-1.20); Potassium, Blood 4.4 mmol/L (3.5-5.5)
== END 2022-03-29 10:36 | disposition home or self-care (01) ==
LOC: ATC 01:48
PROVIDERS: Internal Medicine
DX: A41.9 Sepsis, unspecified organism (principal); D69.3 Immune thrombocytopenic purpura
CPT/HCPCS: 36592; 80048; 82550; 85025

== ENCOUNTER 2022-04-05 01:44 | Day surgery (SDC) | payer MEDICARE, OTHER ==
[2022-04-05 11:45] LABS: BASOPHILS ABSOLUTE AUTO 0.25 K/mm3 (0.00-0.23); BASOPHILS PERCENT AUTO 2 % (0-2); EOSINOPHILS ABSOLUTE AUTO 0.34 K/mm3 (0.00-0.68); EOSINOPHILS PERCENT AUTO 3 % (0-6); Hematocrit 42.1 % (37.0-53.0); Hemoglobin 12.4 g/dL (13.5-17.5); IMMATURE GRAN PERCENT AUTO 1 % (0-1); LYMPHOCYTES ABSOLUTE AUTO 2.76 K/mm3 (0.84-5.20); LYMPHOCYTES PERCENT AUTO 22 % (21-46); MONOCYTES ABSOLUTE AUTO 1.77 K/mm3 (0.16-1.47); MONOCYTES PERCENT AUTO 14 % (4-13); Mean Corpuscular HGB 23.8 pg (26.0-34.0); Mean Corpuscular HGB Conc 29.5 g/dL (31.5-36.5); Mean Corpuscular Volume 81 fL (80-100); NEUTROPHILS ABSOLUTE AUTO 7.62 K/mm3 (1.96-9.15); NEUTROPHILS PERCENT AUTO 59 % (41-73); NRBC ABSOLUTE 0.02 K/mm3 (0.00-0.02); NRBC Auto 0.2 /100 WBC (0.0-0.2); RDW Coefficient Variation 22.9 % (11.7-14.2); RDW Standard Deviation 66.3 fL (35.1-46.3); White Blood Cell Count 12.84 K/mm3 (4.00-11.30)
[2022-04-05 11:53] LABS: Bun/Creatinine Ratio 18.9 (12.0-20.0); Calcium, Blood 8.9 mg/dL (8.5-10.1); Creatinine, Blood 0.85 mg/dL (0.60-1.20); Potassium, Blood 4.3 mmol/L (3.5-5.5)
[2022-04-05 12:08] LABS: Platelet Count 51 K/mm3 (150-400)
== END 2022-04-05 11:05 | disposition home or self-care (01) ==
LOC: ATC 01:44
PROVIDERS: Internal Medicine
DX: D69.3 Immune thrombocytopenic purpura (principal)
CPT/HCPCS: 36592; 80048; 82550; 85025

== ENCOUNTER 2022-04-12 01:44 | Day surgery (SDC) | payer MEDICARE, OTHER ==
[2022-04-12 12:06] LABS: Albumin, Blood 3.4 g/dL (3.4-5.0); Albumin/Globulin Ratio 0.8 (0.8-1.8); Bilirubin, Total 0.3 mg/dL (0.1-1.0); Bun/Creatinine Ratio 15.6 (12.0-20.0); Calcium, Blood 9.3 mg/dL (8.5-10.1); Creatinine, Blood 0.96 mg/dL (0.60-1.20); Globulin, Blood 4.5 g/dL (2.2-4.0); Potassium, Blood 4.1 mmol/L (3.5-5.5); Total Protein, Blood 7.9 g/dL (6.4-8.2)
[2022-04-12 12:15] LABS: BASOPHILS ABSOLUTE AUTO 0.18 K/mm3 (0.00-0.23); BASOPHILS PERCENT AUTO 1 % (0-2); EOSINOPHILS ABSOLUTE AUTO 0.34 K/mm3 (0.00-0.68); EOSINOPHILS PERCENT AUTO 3 % (0-6); Hematocrit 41.8 % (37.0-53.0); Hemoglobin 12.5 g/dL (13.5-17.5); IMMATURE GRAN ABSOLUTE AUTO 0.08 K/mm3 (0.00-0.10); IMMATURE GRAN PERCENT AUTO 1 % (0-1); LYMPHOCYTES ABSOLUTE AUTO 2.37 K/mm3 (0.84-5.20); LYMPHOCYTES PERCENT AUTO 18 % (21-46); MONOCYTES ABSOLUTE AUTO 1.72 K/mm3 (0.16-1.47); MONOCYTES PERCENT AUTO 13 % (4-13); Mean Corpuscular HGB 24.1 pg (26.0-34.0); Mean Corpuscular HGB Conc 29.9 g/dL (31.5-36.5); Mean Corpuscular Volume 81 fL (80-100); NEUTROPHILS ABSOLUTE AUTO 8.39 K/mm3 (1.96-9.15); NEUTROPHILS PERCENT AUTO 64 % (41-73); RDW Coefficient Variation 21.6 % (11.7-14.2); RDW Standard Deviation 62.4 fL (35.1-46.3); Red Blood Cell Count 5.19 M/mm3 (4.30-5.90); White Blood Cell Count 13.08 K/mm3 (4.00-11.30)
--- NOTE | 2022-04-13 19:06 | NUR ---
LATE ENTRY CRITICAL LAB VALUE: ELECTRICAL LABORATORY TECHNICIAN [facility] CALLED THIS RN TO REPORT A CRITICAL VALUE ON THIS PATIENT. THIS RN READ BACK THE RESULTS AND EXPAINED TO [facility] THAT SHE NEEDS TO CALL THE ORDERING DOCTOR BECAUSE THIS IS AN OUTPATIENT CLINIC. SHE VERBALIZED UNDERSTANDING AND HUNG UP.
[2022-04-16 09:52] LABS: Platelet Count 11 K/mm3 (150-400)
== END 2022-04-12 11:15 | disposition home or self-care (01) ==
LOC: ATC 01:44
PROVIDERS: Internal Medicine
DX: A41.9 Sepsis, unspecified organism (principal); L02.211 Cutaneous abscess of abdominal wall; B95.62 Methicillin resistant Staphylococcus aureus infection as the cause of diseases classified elsewhere; I13.10 Hypertensive heart and chronic kidney disease without heart failure, with stage 1 through stage 4 chronic kidney disease, or unspecified chronic kidney disease; E11.22 Type 2 diabetes mellitus with diabetic chronic kidney disease; N18.30 Chronic kidney disease, stage 3 unspecified; I25.2 Old myocardial infarction; Z87.891 Personal history of nicotine dependence; Z79.4 Long term (current) use of insulin
CPT/HCPCS: 36592; 80053; 82550; 85025

== ENCOUNTER 2022-04-19 01:18 | Day surgery (SDC) | payer MEDICARE, OTHER ==
[2022-04-19 11:19] LABS: BASOPHILS PERCENT AUTO 2 % (0-2); EOSINOPHILS ABSOLUTE AUTO 0.31 K/mm3 (0.00-0.68); EOSINOPHILS PERCENT AUTO 2 % (0-6); Hematocrit 41.8 % (37.0-53.0); Hemoglobin 12.6 g/dL (13.5-17.5); IMMATURE GRAN ABSOLUTE AUTO 0.11 K/mm3 (0.00-0.10); IMMATURE GRAN PERCENT AUTO 1 % (0-1); LYMPHOCYTES ABSOLUTE AUTO 2.51 K/mm3 (0.84-5.20); LYMPHOCYTES PERCENT AUTO 18 % (21-46); MONOCYTES PERCENT AUTO 12 % (4-13); Mean Corpuscular HGB Conc 30.1 g/dL (31.5-36.5); Mean Corpuscular Volume 80 fL (80-100); NEUTROPHILS ABSOLUTE AUTO 8.93 K/mm3 (1.96-9.15); NEUTROPHILS PERCENT AUTO 65 % (41-73); RDW Coefficient Variation 21.3 % (11.7-14.2); RDW Standard Deviation 60.6 fL (35.1-46.3); Red Blood Cell Count 5.25 M/mm3 (4.30-5.90); White Blood Cell Count 13.76 K/mm3 (4.00-11.30)
[2022-04-19 11:33] LABS: Bun/Creatinine Ratio 15.3 (12.0-20.0); Calcium, Blood 8.9 mg/dL (8.5-10.1); Creatinine, Blood 0.98 mg/dL (0.60-1.20)
[2022-04-19 11:41] LABS: Platelet Count 20 K/mm3 (150-400)
--- NOTE | 2022-04-19 11:49 | NUR ---
SPOKE WITH CATERINA Mckinney MA AT [facility], AND FAXED LAB RESULTS FROM TODAY TO THEIR OFFICE. PT HAS AN APPOINTMENT IN THEIR OFFICE LATER TODAY.
== END 2022-04-19 11:25 | disposition home or self-care (01) ==
LOC: ATC 01:18
PROVIDERS: Internal Medicine
DX: T82.594A Other mechanical complication of infusion catheter, initial encounter (principal); I12.9 Hypertensive chronic kidney disease with stage 1 through stage 4 chronic kidney disease, or unspecified chronic kidney disease; N18.30 Chronic kidney disease, stage 3 unspecified; E11.22 Type 2 diabetes mellitus with diabetic chronic kidney disease; Z79.4 Long term (current) use of insulin; Z90.81 Acquired absence of spleen; Z87.891 Personal history of nicotine dependence; Z79.899 Other long term (current) drug therapy
CPT/HCPCS: 36592; 36593; 80048; 82550; 85025

== ENCOUNTER 2022-04-26 02:48 | Day surgery (SDC) | payer MEDICARE, OTHER ==
[2022-04-26 10:31] LABS: BASOPHILS ABSOLUTE AUTO 0.21 K/mm3 (0.00-0.23); BASOPHILS PERCENT AUTO 1 % (0-2); EOSINOPHILS ABSOLUTE AUTO 0.27 K/mm3 (0.00-0.68); EOSINOPHILS PERCENT AUTO 2 % (0-6); Hemoglobin 12.3 g/dL (13.5-17.5); IMMATURE GRAN ABSOLUTE AUTO 0.17 K/mm3 (0.00-0.10); IMMATURE GRAN PERCENT AUTO 1 % (0-1); LYMPHOCYTES ABSOLUTE AUTO 2.49 K/mm3 (0.84-5.20); LYMPHOCYTES PERCENT AUTO 16 % (21-46); MONOCYTES ABSOLUTE AUTO 2.13 K/mm3 (0.16-1.47); MONOCYTES PERCENT AUTO 13 % (4-13); Mean Corpuscular Volume 80 fL (80-100); NEUTROPHILS ABSOLUTE AUTO 10.58 K/mm3 (1.96-9.15); NEUTROPHILS PERCENT AUTO 67 % (41-73); NRBC ABSOLUTE 0.02 K/mm3 (0.00-0.02); NRBC Auto 0.1 /100 WBC (0.0-0.2); RDW Coefficient Variation 20.4 % (11.7-14.2); RDW Standard Deviation 59.2 fL (35.1-46.3); Red Blood Cell Count 5.12 M/mm3 (4.30-5.90); White Blood Cell Count 15.85 K/mm3 (4.00-11.30)
[2022-04-26 10:50] LABS: Platelet Count 25 K/mm3 (150-400)
[2022-04-26 11:08] LABS: Bun/Creatinine Ratio 15.2 (12.0-20.0); Calcium, Blood 8.9 mg/dL (8.5-10.1); Creatinine, Blood 0.86 mg/dL (0.60-1.20); Potassium, Blood 3.9 mmol/L (3.5-5.5)
== END 2022-04-26 10:20 | disposition home or self-care (01) ==
LOC: ATC 02:48
PROVIDERS: Internal Medicine Hematology & Oncology
DX: A41.9 Sepsis, unspecified organism (principal); I12.9 Hypertensive chronic kidney disease with stage 1 through stage 4 chronic kidney disease, or unspecified chronic kidney disease; N18.30 Chronic kidney disease, stage 3 unspecified; E11.22 Type 2 diabetes mellitus with diabetic chronic kidney disease; I25.2 Old myocardial infarction; Z87.891 Personal history of nicotine dependence; Z79.4 Long term (current) use of insulin; Z79.899 Other long term (current) drug therapy
CPT/HCPCS: 36592; 80048; 82550; 85025

== ENCOUNTER 2022-07-25 13:44 | Day surgery (SDC) | payer MEDICARE, OTHER ==
[~2022-07-25 13:44] MED LIST changes: +Bactrim Ds Tab1 EACH PO; +Pepcid20 MG PO
== END 2022-07-25 17:05 | disposition home or self-care (01) ==
LOC: ATC 13:44
DX: D69.3 Immune thrombocytopenic purpura (principal); I25.2 Old myocardial infarction; N18.30 Chronic kidney disease, stage 3 unspecified; E11.22 Type 2 diabetes mellitus with diabetic chronic kidney disease; Z87.891 Personal history of nicotine dependence; Z79.4 Long term (current) use of insulin
CPT/HCPCS: 86900; 86901; J7040; P9035

== ENCOUNTER 2022-08-07 12:46 | Day surgery (SDC) | payer MEDICARE, OTHER ==
[2022-08-07] MEDS ORDERED: TAVALISSE PO (14:19)
== END 2022-08-07 15:35 | disposition home or self-care (01) ==
LOC: ATC 12:46
DX: D69.3 Immune thrombocytopenic purpura (principal); I10 Essential (primary) hypertension; F17.200 Nicotine dependence, unspecified, uncomplicated
CPT/HCPCS: 36430; 86900; 86901; J7040; P9053

== ENCOUNTER 2022-08-10 14:25 | Emergency (ER) | payer MEDICARE, OTHER ==
[~2022-08-10] VITALS: Ht 172.7 cm; Wt 96.2 kg
[~2022-08-10 14:25] MED LIST changes: +TAVALISSE PO
[2022-08-10 15:45] LABS: BASOPHILS ABSOLUTE AUTO 0.12 K/mm3 (0.00-0.23); BASOPHILS PERCENT AUTO 1 % (0-2); EOSINOPHILS ABSOLUTE AUTO 0.05 K/mm3 (0.00-0.68); EOSINOPHILS PERCENT AUTO 0 % (0-6); Hemoglobin 12.1 g/dL (13.5-17.5); IMMATURE GRAN ABSOLUTE AUTO 0.22 K/mm3 (0.00-0.10); IMMATURE GRAN PERCENT AUTO 1 % (0-1); LYMPHOCYTES ABSOLUTE AUTO 2.04 K/mm3 (0.84-5.20); LYMPHOCYTES PERCENT AUTO 11 % (21-46); MONOCYTES ABSOLUTE AUTO 2.03 K/mm3 (0.16-1.47); MONOCYTES PERCENT AUTO 11 % (4-13); Mean Corpuscular HGB Conc 31.8 g/dL (31.5-36.5); Mean Corpuscular Volume 82 fL (80-100); NEUTROPHILS ABSOLUTE AUTO 13.96 K/mm3 (1.96-9.15); NEUTROPHILS PERCENT AUTO 76 % (41-73); NRBC ABSOLUTE 0.18 K/mm3 (0.00-0.02); RDW Coefficient Variation 23.9 % (11.7-14.2); RDW Standard Deviation 70.3 fL (35.1-46.3); Red Blood Cell Count 4.65 M/mm3 (4.30-5.90); White Blood Cell Count 18.42 K/mm3 (4.00-11.30)
[2022-08-10 15:50] LABS: Albumin/Globulin Ratio 0.6 (0.8-1.8); Bilirubin, Total 0.3 mg/dL (0.1-1.0); Bun/Creatinine Ratio 14.7 (12.0-20.0); Calcium, Blood 8.9 mg/dL (8.5-10.1); Creatinine, Blood 1.29 mg/dL (0.60-1.20); Globulin, Blood 4.9 g/dL (2.2-4.0); Potassium, Blood 4.7 mmol/L (3.5-5.5); Total Protein, Blood 7.9 g/dL (6.4-8.2)
[2022-08-10] MEDS ORDERED: SULFAMETHOXAZO1 EAC1 PO (16:38)
[2022-08-10] MEDS ORDERED: LOSA50 PO (16:39)
[2022-08-10] MEDS ORDERED: METFORMIN HCL500 M3 PO (16:39)
[2022-08-10 16:50] LABS: Platelet Count 17 K/mm3 (150-400)
[2022-08-10] MEDS ORDERED: MS CONTIN15 MG PO (18:41)
== END 2022-08-10 19:00 | disposition home or self-care (01) ==
LOC: ER 14:25
PROVIDERS: Physician Assistant
DX: L03.113 Cellulitis of right upper limb (principal); D72.829 Elevated white blood cell count, unspecified; D69.6 Thrombocytopenia, unspecified; E11.9 Type 2 diabetes mellitus without complications; I25.10 Atherosclerotic heart disease of native coronary artery without angina pectoris; I10 Essential (primary) hypertension; Z87.891 Personal history of nicotine dependence; Z79.84 Long term (current) use of oral hypoglycemic drugs; Z79.899 Other long term (current) drug therapy
CPT/HCPCS: 36415; 80053; 85025; 86140; 93971; A9270; J3010

== ENCOUNTER 2022-11-08 11:51 | Day surgery (SDC) | payer MEDICARE, OTHER ==
[2022-11-08 10:36] LABS: Hematocrit 33.1 % (37.0-53.0); Hemoglobin 10.4 g/dL (13.5-17.5); Mean Corpuscular HGB 28.1 pg (26.0-34.0); Mean Corpuscular HGB Conc 31.4 g/dL (31.5-36.5); Mean Corpuscular Volume 90 fL (80-100); NRBC ABSOLUTE 3.86 K/mm3 (0.00-0.02); NRBC Auto 22.4 /100 WBC (0.0-0.2); RDW Coefficient Variation 25.4 % (11.7-14.2); White Blood Cell Count 17.22 K/mm3 (4.00-11.30)
[2022-11-08 10:44] LABS: Platelet Count 2 K/mm3 (150-400)
[2022-11-08 10:52] LABS: Albumin, Blood 3.3 g/dL (3.4-5.0); Albumin/Globulin Ratio 0.9 (0.8-1.8); Bilirubin, Total 0.4 mg/dL (0.1-1.0); Bun/Creatinine Ratio 16.1 (12.0-20.0); Calcium, Blood 8.6 mg/dL (8.5-10.1); Creatinine, Blood 0.99 mg/dL (0.60-1.20); Globulin, Blood 3.6 g/dL (2.2-4.0); Potassium, Blood 4.1 mmol/L (3.5-5.5); Total Protein, Blood 6.9 g/dL (6.4-8.2)
[2022-11-08 11:10] LABS: BAND PERCENT MAN 3 % (0-8); BASOPHILS ABSOLUTE MAN 0.17 K/mm3 (0.00-0.23); BASOPHILS PERCENT MAN 1 % (0-2); EOSINOPHILS ABSOLUTE MAN 0.68 K/mm3 (0.00-0.68); EOSINOPHILS PERCENT MAN 4 % (0-6); LYMPHOCYTES ABSOLUTE MAN 2.92 K/mm3 (0.84-5.20); LYMPHOCYTES PERCENT MAN 17 % (21-46); MONOCYTES ABSOLUTE MAN 1.89 K/mm3 (0.16-1.47); MONOCYTES PERCENT MAN 11 % (4-13); MYELOCYTE ABSOLUTE MAN 0.34 K/mm3 (0.00-0.00); MYELOCYTE PERCENT MAN 2 % (0-0); NEUTROPHILS ABSOLUTE MAN 11.19 K/mm3 (1.96-9.15); SEG NEUTROPHILS PERCENT MAN 62 % (41-73); TOTAL CELLS COUNTED 100
[~2022-11-08 11:51] MED LIST changes: +LOSA50 PO; +METFORMIN HCL500 M3 PO; +MS CONTIN15 MG PO; +SULFAMETHOXAZO1 EAC1 PO
== END 2022-11-08 15:37 | disposition home or self-care (01) ==
LOC: ATC 11:51 → EDSTATUS 11:52 → ATC 15:37
PROVIDERS: Internal Medicine Hematology & Oncology
DX: D69.3 Immune thrombocytopenic purpura (principal); D50.9 Iron deficiency anemia, unspecified; I10 Essential (primary) hypertension; K21.9 Gastro-esophageal reflux disease without esophagitis; E11.9 Type 2 diabetes mellitus without complications
CPT/HCPCS: 36415; 36430; 80053; 85025; 86900; 86901; J7050; P9035

== ENCOUNTER 2022-11-23 01:44 | Day surgery (SDC) | payer MEDICARE, OTHER ==
[2022-11-22 11:29] LABS: Hematocrit 33.1 % (37.0-53.0); Hemoglobin 10.3 g/dL (13.5-17.5); Mean Corpuscular HGB 28.4 pg (26.0-34.0); Mean Corpuscular HGB Conc 31.1 g/dL (31.5-36.5); Mean Corpuscular Volume 91 fL (80-100); NRBC ABSOLUTE 5.95 K/mm3 (0.00-0.02); NRBC Auto 30.5 /100 WBC (0.0-0.2); RDW Coefficient Variation 25.9 % (11.7-14.2); RDW Standard Deviation 83.5 fL (35.1-46.3); Red Blood Cell Count 3.63 M/mm3 (4.30-5.90); White Blood Cell Count 19.52 K/mm3 (4.00-11.30)
[2022-11-22 11:53] LABS: Platelet Count 3 K/mm3 (150-400)
[2022-11-22 13:15] LABS: BAND PERCENT MAN 1 % (0-8); BASOPHILS ABSOLUTE MAN 0.39 K/mm3 (0.00-0.23); BASOPHILS PERCENT MAN 2 % (0-2); EOSINOPHILS ABSOLUTE MAN 0.19 K/mm3 (0.00-0.68); EOSINOPHILS PERCENT MAN 1 % (0-6); LYMPHOCYTES PERCENT MAN 20 % (21-46); MONOCYTES ABSOLUTE MAN 0.97 K/mm3 (0.16-1.47); MONOCYTES PERCENT MAN 5 % (4-13); MYELOCYTE ABSOLUTE MAN 0.58 K/mm3 (0.00-0.00); MYELOCYTE PERCENT MAN 3 % (0-0); NEUTROPHILS ABSOLUTE MAN 13.27 K/mm3 (1.96-9.15); SEG NEUTROPHILS PERCENT MAN 67 % (41-73); TOTAL CELLS COUNTED 100
[2022-11-22 13:18] LABS: OTHER CELL PERCENT MAN 1 % (0-0)
[2022-11-23] MEDS ORDERED: AZAT50 PO (08:49)
== END 2022-11-23 09:48 | disposition home or self-care (01) ==
LOC: ATC 01:44
PROVIDERS: Internal Medicine Hematology & Oncology
DX: D69.3 Immune thrombocytopenic purpura (principal); D50.9 Iron deficiency anemia, unspecified
CPT/HCPCS: 36415; 36430; 85025; 86900; 86901; J7050; P9035

== ENCOUNTER 2022-11-29 09:42 | Day surgery (SDC) | payer MEDICARE, OTHER ==
[~2022-11-29 09:42] MED LIST changes: +AZAT50 PO
[2022-11-29 09:56] LABS: Performing Lab SYMBIODX; Test Name CYTOMETRY
[2022-11-29 11:11] LABS: BASOPHILS ABSOLUTE AUTO 0.08 K/mm3 (0.00-0.23); BASOPHILS PERCENT AUTO 1 % (0-2); EOSINOPHILS ABSOLUTE AUTO 0.15 K/mm3 (0.00-0.68); EOSINOPHILS PERCENT AUTO 2 % (0-6); Hematocrit 34.1 % (37.0-53.0); Hemoglobin 10.4 g/dL (13.5-17.5); IMMATURE GRAN ABSOLUTE AUTO 0.29 K/mm3 (0.00-0.10); IMMATURE GRAN PERCENT AUTO 3 % (0-1); LYMPHOCYTES ABSOLUTE AUTO 1.33 K/mm3 (0.84-5.20); LYMPHOCYTES PERCENT AUTO 15 % (21-46); MONOCYTES ABSOLUTE AUTO 1.61 K/mm3 (0.16-1.47); MONOCYTES PERCENT AUTO 19 % (4-13); Mean Corpuscular HGB 28.6 pg (26.0-34.0); Mean Corpuscular HGB Conc 30.5 g/dL (31.5-36.5); Mean Corpuscular Volume 94 fL (80-100); NEUTROPHILS ABSOLUTE AUTO 5.15 K/mm3 (1.96-9.15); NEUTROPHILS PERCENT AUTO 60 % (41-73); NRBC ABSOLUTE 5.88 K/mm3 (0.00-0.02); NRBC Auto 68.3 /100 WBC (0.0-0.2); RDW Standard Deviation 88.1 fL (35.1-46.3); RETICULOCYTE COUNT PERCENT 3.49 % (0.50-2.50); Red Blood Cell Count 3.64 M/mm3 (4.30-5.90); White Blood Cell Count 8.61 K/mm3 (4.00-11.30)
[2022-11-29 11:21] LABS: Platelet Count 3 K/mm3 (150-400)
[2022-11-29 11:43] LABS: Albumin, Blood 3.3 g/dL (3.4-5.0); Albumin/Globulin Ratio 0.7 (0.8-1.8); Bilirubin, Total 0.3 mg/dL (0.1-1.0); Bun/Creatinine Ratio 15.9 (12.0-20.0); Calcium, Blood 8.5 mg/dL (8.5-10.1); Creatinine, Blood 1.07 mg/dL (0.60-1.20); Globulin, Blood 4.8 g/dL (2.2-4.0); Percent Saturation 18.7 % (20.0-50.0); Potassium, Blood 4.4 mmol/L (3.5-5.5); Thyroid Stimulating Hormone 3.61 uIU/mL (0.360-4.800); Total Protein, Blood 8.1 g/dL (6.4-8.2)
[2022-11-29 13:59] LABS: International Normalized Ratio 0.98; Prothrombin Time Results 10.3 Sec (9.7-11.5)
[2022-11-30 08:10] LABS: HAPTOGLOBIN 33 mg/dL (32-363)
[2022-12-01 06:11] LABS: COMPLEMENT C3, SERUM 140 mg/dL (82-167); COMPLEMENT C4, SERUM 13 mg/dL (12-38)
[2022-12-03 16:08] LABS: A/G RATIO 0.9 (0.7-1.7); ALBUMIN 3.5 g/dL (2.9-4.4); ALPHA-1-GLOBULIN 0.2 g/dL (0.0-0.4); ALPHA-2-GLOBULIN 0.5 g/dL (0.4-1.0); BETA GLOBULIN 0.9 g/dL (0.7-1.3); GAMMA GLOBULIN 2.3 g/dL (0.4-1.8); IMMUNOGLOBULIN A, QN, SERUM 94 mg/dL (61-437); IMMUNOGLOBULIN G, QN, SERUM 2408 mg/dL (603-1613); IMMUNOGLOBULIN M, QN, SERUM 51 mg/dL (20-172); M-SPIKE Not Observed g/dL (Not Observed); PROTEIN, TOTAL, SERUM 7.5 g/dL (6.0-8.5)
== END 2022-11-29 16:07 | disposition home or self-care (01) ==
LOC: LAB SHORT 09:42 → ATC 09:42 → EDSTATUS 12:48 → ATC 16:07
PROVIDERS: Internal Medicine Hematology & Oncology
DX: D69.3 Immune thrombocytopenic purpura (principal); D69.6 Thrombocytopenia, unspecified; D51.1 Vitamin B12 deficiency anemia due to selective vitamin B12 malabsorption with proteinuria; E03.4 Atrophy of thyroid (acquired); E55.9 Vitamin D deficiency, unspecified; E11.9 Type 2 diabetes mellitus without complications
CPT/HCPCS: 36415; 36430; 80053; 82306; 82607; 82728; 82746; 82784; 83540; 83550; 83615; 84165; 84443; 85025; 85045; 85362; 85384; 85610; 85730; 86160; 86334; 86900; 86901; J7050; P9035

== ENCOUNTER 2022-12-04 11:56 | Inpatient (IN) | payer MEDICARE, OTHER ==
[~2022-12-04] VITALS: Ht 172.7 cm; Wt 101.6 kg
[2022-12-04 12:45] LABS: Hematocrit 28.7 % (37.0-53.0); Hemoglobin 8.7 g/dL (13.5-17.5); Mean Corpuscular HGB 28.9 pg (26.0-34.0); Mean Corpuscular HGB Conc 30.3 g/dL (31.5-36.5); Mean Corpuscular Volume 95 fL (80-100); NRBC ABSOLUTE 6.68 K/mm3 (0.00-0.02); RDW Coefficient Variation 26.6 % (11.7-14.2); RDW Standard Deviation 92.2 fL (35.1-46.3); Red Blood Cell Count 3.01 M/mm3 (4.30-5.90); White Blood Cell Count 15.92 K/mm3 (4.00-11.30)
[2022-12-04 13:12] LABS: Albumin, Blood 3.2 g/dL (3.4-5.0); Albumin/Globulin Ratio 0.8 (0.8-1.8); Bilirubin, Total 0.3 mg/dL (0.1-1.0); Bun/Creatinine Ratio 18.4 (12.0-20.0); Calcium, Blood 8.5 mg/dL (8.5-10.1); Creatinine, Blood 1.25 mg/dL (0.60-1.20); Globulin, Blood 4.2 g/dL (2.2-4.0); Potassium, Blood 4.6 mmol/L (3.5-5.5); Total Protein, Blood 7.4 g/dL (6.4-8.2)
[2022-12-04 13:14] LABS: Platelet Count 5 K/mm3 (150-400)
[2022-12-04 13:46] LABS: BAND PERCENT MAN 1 % (0-8); BASOPHILS ABSOLUTE MAN 0.15 K/mm3 (0.00-0.23); BASOPHILS PERCENT MAN 1 % (0-2); EOSINOPHILS ABSOLUTE MAN 3.34 K/mm3 (0.00-0.68); EOSINOPHILS PERCENT MAN 21 % (0-6); LYMPHOCYTES ABSOLUTE MAN 1.91 K/mm3 (0.84-5.20); LYMPHOCYTES PERCENT MAN 12 % (21-46); METAMYELOCYTE ABSOLUTE MAN 0.15 K/mm3 (0.00-0.00); METAMYELOCYTE PERCENT MAN 1 % (0-0); MONOCYTES ABSOLUTE MAN 1.43 K/mm3 (0.16-1.47); MONOCYTES PERCENT MAN 9 % (4-13); NEUTROPHILS ABSOLUTE MAN 8.91 K/mm3 (1.96-9.15); SEG NEUTROPHILS PERCENT MAN 55 % (41-73); TOTAL CELLS COUNTED 100
[2022-12-04] MEDS ORDERED: OXYC5 PO (13:54)
[2022-12-04] MEDS ORDERED: Cyclobenzaprine5 MG PO (13:54)
[2022-12-04 14:30] LABS: International Normalized Ratio 0.98; Prothrombin Time Results 10.3 Sec (9.7-11.5)
[2022-12-04] MEDS ORDERED: BASAGLAR K100 UNIT/1 SC (16:31)
[2022-12-04 17:06] LABS: Hematocrit 28.3 % (37.0-53.0); Hemoglobin 8.5 g/dL (13.5-17.5); Mean Corpuscular HGB 29.7 pg (26.0-34.0); Mean Corpuscular Volume 99 fL (80-100); NRBC ABSOLUTE 6.95 K/mm3 (0.00-0.02); NRBC Auto 42.5 /100 WBC (0.0-0.2); RDW Coefficient Variation 26.5 % (11.7-14.2); RDW Standard Deviation 91.6 fL (35.1-46.3); Red Blood Cell Count 2.86 M/mm3 (4.30-5.90); White Blood Cell Count 16.37 K/mm3 (4.00-11.30)
[2022-12-04 17:12] LABS: Platelet Count 44 K/mm3 (150-400)
--- NOTE | 2022-12-04 17:57 | NUR ---
AARIVAL TO PCU/SHIFT SUMMARY Patient arrived to PCU from ED and transfered into PCU bed a stand by assist. Patient arrived at 1616. Patient is alert and oriented x4. vital signs stable, blood pressure elevated. see vitals. tele sinus 90s. spo2 >95% on room air. patient reports no pain. patient reports no chest pain/pressure. patient reports no shortness of breath. patient skin is clean dry and intact, besides the patient has a systemtic rash from iv ig treatment he received last week at the infusion center. See admit assessment for further detials. This RN oriented patient to the unit and call light. Patient verbalized understanding. Plan of care is up to date. Call light within reach and bed in lowest position.
[2022-12-04 18:02] LABS: BASOPHILS ABSOLUTE MAN 0.16 K/mm3 (0.00-0.23); BASOPHILS PERCENT MAN 1 % (0-2); EOSINOPHILS PERCENT MAN 11 % (0-6); LYMPHOCYTES ABSOLUTE MAN 1.96 K/mm3 (0.84-5.20); LYMPHOCYTES PERCENT MAN 12 % (21-46); MONOCYTES ABSOLUTE MAN 0.81 K/mm3 (0.16-1.47); MONOCYTES PERCENT MAN 5 % (4-13); NEUTROPHILS ABSOLUTE MAN 11.62 K/mm3 (1.96-9.15); SEG NEUTROPHILS PERCENT MAN 71 % (41-73); TOTAL CELLS COUNTED 100
[2022-12-04 20:49] LABS: International Normalized Ratio 0.98; Prothrombin Time Results 10.3 Sec (9.7-11.5)
[2022-12-05 04:24] LABS: Hematocrit 25.6 % (37.0-53.0); Hemoglobin 8.1 g/dL (13.5-17.5); Mean Corpuscular HGB 29.7 pg (26.0-34.0); Mean Corpuscular HGB Conc 31.6 g/dL (31.5-36.5); NRBC ABSOLUTE 8.37 K/mm3 (0.00-0.02); NRBC Auto 44.2 /100 WBC (0.0-0.2); RDW Coefficient Variation 26.2 % (11.7-14.2); RDW Standard Deviation 88.2 fL (35.1-46.3); Red Blood Cell Count 2.73 M/mm3 (4.30-5.90); White Blood Cell Count 18.94 K/mm3 (4.00-11.30)
[2022-12-05 04:41] LABS: Mean Corpuscular Volume 94 fL (80-100)
[2022-12-05 04:44] LABS: Platelet Count 4 K/mm3 (150-400)
--- NOTE | 2022-12-05 04:51 | NUR ---
Resident contacted regarding critical low PLT of 4 despite receiving 1u PLT yesterday. Order to transfuse 1u PLT.
[2022-12-05 05:15] LABS: BAND PERCENT MAN 2 % (0-8); BASOPHILS ABSOLUTE MAN 0.37 K/mm3 (0.00-0.23); BASOPHILS PERCENT MAN 2 % (0-2); EOSINOPHILS ABSOLUTE MAN 3.03 K/mm3 (0.00-0.68); EOSINOPHILS PERCENT MAN 16 % (0-6); LYMPHOCYTES % ATYPICAL MANUAL 1 % (0-0); LYMPHOCYTES ABSOLUTE MAN 2.84 K/mm3 (0.84-5.20); LYMPHOCYTES PERCENT MAN 14 % (21-46); METAMYELOCYTE ABSOLUTE MAN 0.18 K/mm3 (0.00-0.00); METAMYELOCYTE PERCENT MAN 1 % (0-0); MONOCYTES ABSOLUTE MAN 1.51 K/mm3 (0.16-1.47); MONOCYTES PERCENT MAN 8 % (4-13); NEUTROPHILS ABSOLUTE MAN 10.79 K/mm3 (1.96-9.15); OTHER CELL PERCENT MAN 1 % (0-0); SEG NEUTROPHILS PERCENT MAN 55 % (41-73); TOTAL CELLS COUNTED 100
--- NOTE | 2022-12-05 05:15 | NUR ---
Assumed care of pt at 1900. A/Ox4, cooperative with care, calls appropriately. C/o chronic leg pain only slightly reduced with repositioning and medication. Maintains over 95% on RA. LS clear on top and dim at bases. SR 90's on tele, denies CP/pressure, VSS. Critical PLT this morning of 4, see previous note. Firm abdomen, no BM this shift. Rash t/o. Will report to rachana RUSHING.
[2022-12-05 05:31] LABS: Albumin/Globulin Ratio 0.8 (0.8-1.8); Bilirubin, Total 0.4 mg/dL (0.1-1.0); Bun/Creatinine Ratio 20.3 (12.0-20.0); Calcium, Blood 8.5 mg/dL (8.5-10.1); Creatinine, Blood 1.23 mg/dL (0.60-1.20); Globulin, Blood 3.8 g/dL (2.2-4.0); Potassium, Blood 3.9 mmol/L (3.5-5.5); Total Protein, Blood 6.8 g/dL (6.4-8.2)
--- NOTE | 2022-12-05 10:10 | NUR ---
CARE ASSUMPTION This RN assumed care at 0700. vital signs stable. tele sr 90s. patient is alert and oriented x4. patient reports no pain, chest pain/pressure, or shortness of breath. pateint is itching t/o from rash and offered measures to relieve itching. see shift assessment for further detials. MD Real and team in to see patient this AM and discussed plan of care. Plan of care is up to date. call light within reach and bed in lowest position.
[2022-12-05 12:47] LABS: Hematocrit 26.3 % (37.0-53.0); Hemoglobin 8.1 g/dL (13.5-17.5); Mean Corpuscular HGB 28.9 pg (26.0-34.0); Mean Corpuscular HGB Conc 30.8 g/dL (31.5-36.5); Mean Corpuscular Volume 94 fL (80-100); NRBC ABSOLUTE 8.29 K/mm3 (0.00-0.02); NRBC Auto 39.1 /100 WBC (0.0-0.2); RDW Coefficient Variation 26.5 % (11.7-14.2); RDW Standard Deviation 88.2 fL (35.1-46.3); White Blood Cell Count 21.19 K/mm3 (4.00-11.30)
[2022-12-05 13:01] LABS: Platelet Count 5 K/mm3 (150-400)
[2022-12-05 14:01] LABS: BAND PERCENT MAN 1 % (0-8); BASOPHILS ABSOLUTE MAN 0.21 K/mm3 (0.00-0.23); BASOPHILS PERCENT MAN 1 % (0-2); EOSINOPHILS ABSOLUTE MAN 2.75 K/mm3 (0.00-0.68); EOSINOPHILS PERCENT MAN 13 % (0-6); LYMPHOCYTES ABSOLUTE MAN 1.48 K/mm3 (0.84-5.20); LYMPHOCYTES PERCENT MAN 7 % (21-46); MONOCYTES ABSOLUTE MAN 2.11 K/mm3 (0.16-1.47); MONOCYTES PERCENT MAN 10 % (4-13); MYELOCYTE ABSOLUTE MAN 0.42 K/mm3 (0.00-0.00); MYELOCYTE PERCENT MAN 2 % (0-0); NEUTROPHILS ABSOLUTE MAN 14.19 K/mm3 (1.96-9.15); SEG NEUTROPHILS PERCENT MAN 66 % (41-73); TOTAL CELLS COUNTED 100
--- NOTE | 2022-12-05 16:37 | NUR ---
SHIFT SUMMARY Patient neuro remains unchaged this shift. neuro is intact. vital signs stable. patient is q2 blood sugar checks, see orders. Patient has been indepdent in the room and calls if needing assistance. Patient had a maroon stool today. No acute changes this shift. call light within reach and bed in lowest position.
--- NOTE | 2022-12-05 17:50 | NUR ---
TRANSFER OF CARE AND SHIFT SUMMARY: NO ACUTE CHANGES FROM PREVIOUS RN ASSESSMENTS AND NOTES. ALERT AND ORIENTED X4. VITAL SIGNS STABLE. Q2 BLOOD SUGAR CHECKS. LAST BLOOD CHECK AROUND 1730 PRIOR TO INSULIN ADMINISTRATION. UP AT EDGE OF BED EATING DINNER. DENIES OVERALL PAIN. RASH NOTED THROUGHOUT BODY THAT IS RED IN NATURE AND ITCHY. TELE SHOWING SR/ST WITH HR 90-100'S. BP STABLE AND PO COREG GIVEN PER EMAR. DENIES SOB. ON ROOM AIR SATING ABOVE 95%. EATING AND VOIDING WNL. IV SALINE LOCKED. CALL LIGHT IN REACH. PATIENT ABLE TO MAKE NEEDS KNOWN. WILL CONTINUE TO MONITOR AND REPORT OFF TO ONCOMING RN.
--- NOTE | 2022-12-05 18:04 | NUR ---
Transfer Note: No acute changes. See previous note. Report was given by Aminata Irvin to [facility] floor nurse. Family was notified of transfer. Pt transferred up to [facility] via bed with all personal belongings.
--- NOTE | 2022-12-05 19:58 | NUR ---
NOTIFIED PHYSICIAN NOTIFIED PHYSICIAN THAT PT's CBG WAS 485, ORDERS PLACED.
--- NOTE | 2022-12-06 05:12 | NUR ---
SHIFT SUMMARY PT A&Ox4, CALLS AND COMMUNICATES NEEDS APPROPRIATELY. VSS, BP STABLE, SR-ST 90-100's, DENIES CP/PRESSURE. SpO2> 92% RA, DENIES SOB. CBG's IMPROVING, MONITORING Q2hr. PT IND IN ROOM, CONTINENT OF URINE, NO BM THIS SHIFT. NO S/S OF BLEEDING. NO OTHER EVENTS, WILL REPORT TO ONCOMING RN.
[2022-12-06 05:17] LABS: BASOPHILS ABSOLUTE AUTO 0.22 K/mm3 (0.00-0.23); BASOPHILS PERCENT AUTO 1 % (0-2); EOSINOPHILS ABSOLUTE AUTO 0.52 K/mm3 (0.00-0.68); EOSINOPHILS PERCENT AUTO 2 % (0-6); Hematocrit 23.8 % (37.0-53.0); Hemoglobin 7.3 g/dL (13.5-17.5); Mean Corpuscular HGB 28.7 pg (26.0-34.0); Mean Corpuscular HGB Conc 30.7 g/dL (31.5-36.5); Mean Corpuscular Volume 94 fL (80-100); NRBC ABSOLUTE 6.96 K/mm3 (0.00-0.02); NRBC Auto 27.8 /100 WBC (0.0-0.2); RDW Coefficient Variation 26.5 % (11.7-14.2); RDW Standard Deviation 88.2 fL (35.1-46.3); Red Blood Cell Count 2.54 M/mm3 (4.30-5.90)
[2022-12-06 05:45] LABS: IMMATURE GRAN ABSOLUTE AUTO 0.79 K/mm3 (0.00-0.10); IMMATURE GRAN PERCENT AUTO 3 % (0-1); LYMPHOCYTES ABSOLUTE AUTO 4.67 K/mm3 (0.84-5.20); LYMPHOCYTES PERCENT AUTO 19 % (21-46); MONOCYTES ABSOLUTE AUTO 0.66 K/mm3 (0.16-1.47); MONOCYTES PERCENT AUTO 3 % (4-13); NEUTROPHILS ABSOLUTE AUTO 18.14 K/mm3 (1.96-9.15); NEUTROPHILS PERCENT AUTO 73 % (41-73); Platelet Count 4 K/mm3 (150-400)
[2022-12-06 10:53] LABS: Hematocrit 21.9 % (37.0-53.0); Hemoglobin 6.8 g/dL (13.5-17.5)
[2022-12-06 16:33] LABS: Hemoglobin 7.9 g/dL (13.5-17.5)
--- NOTE | 2022-12-06 18:49 | NUR ---
END OF SHIFT NOTE. PT GOT 1 UNIT PRBC THIS AFTERNOON FOR HBG OF 6.8. TOLERATED WELL. SOME COMPLAINTS OF ITCHY RELATED TO RASH, PRN BENADRYL WAS GIVEN ONCE. SOME COMPLAINTS OF PAIN TO FEET PRN PAIN MEDICATION INCRESED TO BID. CBGS HIGH FOR MUCH OF THE DAY. CBG CHECK Q2HR ALL SHIFT. MULTIPLE PHONE CALLS TO MD FOR INSULIN DOSEAGE. LAST CBG 407, PROVIDER GAVE ORDERS TO RECHECK AT 2100. NURSE COMM ENTERED. VITALS STABLE ALL SHIFT. 1 EPISODE OF ANXIETY/SOB SHORTLY AFTER IV INSULIN ADMINISTRATION. EPISODE QUICKLY RESOLVED. BREATHING TX SEEMED TO HELP TOO. PT IS ABLE TO MAKE NEEDS KNOWN, CALL LIGHT IS WITHIN REACH.
[2022-12-07 03:31] LABS: Hematocrit 22.8 % (37.0-53.0); Hemoglobin 7.4 g/dL (13.5-17.5); Mean Corpuscular HGB 29.8 pg (26.0-34.0); Mean Corpuscular HGB Conc 32.5 g/dL (31.5-36.5); Mean Corpuscular Volume 92 fL (80-100); NRBC Auto 10.1 /100 WBC (0.0-0.2); RDW Coefficient Variation 25.2 % (11.7-14.2); RDW Standard Deviation 82.2 fL (35.1-46.3); Red Blood Cell Count 2.48 M/mm3 (4.30-5.90); White Blood Cell Count 35.62 K/mm3 (4.00-11.30)
[2022-12-07 03:51] LABS: Bun/Creatinine Ratio 30.6 (12.0-20.0); Calcium, Blood 8.2 mg/dL (8.5-10.1); Creatinine, Blood 1.21 mg/dL (0.60-1.20); Potassium, Blood 4.1 mmol/L (3.5-5.5)
[2022-12-07 03:57] LABS: Platelet Count 3 K/mm3 (150-400)
[2022-12-07 05:39] LABS: BAND PERCENT MAN 2 % (0-8); BASOPHILS PERCENT MAN 0 % (0-2); EOSINOPHILS PERCENT MAN 0 % (0-6); LYMPHOCYTES ABSOLUTE MAN 4.63 K/mm3 (0.84-5.20); LYMPHOCYTES PERCENT MAN 13 % (21-46); METAMYELOCYTE ABSOLUTE MAN 0.35 K/mm3 (0.00-0.00); METAMYELOCYTE PERCENT MAN 1 % (0-0); MONOCYTES PERCENT MAN 9 % (4-13); MYELOCYTE ABSOLUTE MAN 0.35 K/mm3 (0.00-0.00); MYELOCYTE PERCENT MAN 1 % (0-0); NEUTROPHILS ABSOLUTE MAN 27.07 K/mm3 (1.96-9.15); SEG NEUTROPHILS PERCENT MAN 74 % (41-73); TOTAL CELLS COUNTED 100
--- NOTE | 2022-12-07 05:48 | NUR ---
Assumed care of patient at 1900. A/Ox4, independent in room. Reports chronic leg pain, medicated per emar with good relief. Maintains over 95% on RA, LS clear t/o. SR/ST on tele low 100's. Denies CP/pressure, VSS. Strong +2 pulses t/o. 1+ pitting edema BLE. Mild abdominal distention with hyperactive bowel tones x4. Patient reports 1 small BM that was clear of any blood, although this RN did not see. Diffuse rash t/o that is very itchy, medicated per emar with moderate relief. CBG in 300's currently with Q4 CBG checks. Platelets back this morning showing PLT of 3. Redressed IV site multiple times due to leaking blood. Will report to dayshift RN.
[2022-12-07 14:21] LABS: Hematocrit 24.6 % (37.0-53.0); Hemoglobin 7.7 g/dL (13.5-17.5)
--- NOTE | 2022-12-07 18:40 | NUR ---
END OF SHIFT NOTE. PT RECEIVED 1 UNIT FFP THIS MORNING WHICH HE TOLERATED WELL. CBGs WERE UNDER BETTER CONTROL TODAY RANGING IN THE 360s, INSULIN GIVEN PER MAR. NO BLOOD NOTED IN BOWEL MOVEMENT TODAY. PT REPORTS HE IS READY TO DISCHARGE WHEN ABLE. PT IS ABLE TO MAKE NEEDS KNOWN, CALL LIGHT IS WITHIN REACH.
[2022-12-08 04:06] LABS: Hematocrit 23.2 % (37.0-53.0); Hemoglobin 7.3 g/dL (13.5-17.5); Mean Corpuscular HGB Conc 31.5 g/dL (31.5-36.5); Mean Corpuscular Volume 92 fL (80-100); NRBC ABSOLUTE 3.48 K/mm3 (0.00-0.02); RDW Coefficient Variation 25.7 % (11.7-14.2); Red Blood Cell Count 2.52 M/mm3 (4.30-5.90); White Blood Cell Count 34.88 K/mm3 (4.00-11.30)
[2022-12-08 04:23] LABS: Platelet Count 7 K/mm3 (150-400)
[2022-12-08 04:24] LABS: Bun/Creatinine Ratio 34.5 (12.0-20.0); Calcium, Blood 7.9 mg/dL (8.5-10.1); Creatinine, Blood 1.13 mg/dL (0.60-1.20); Potassium, Blood 3.9 mmol/L (3.5-5.5)
[2022-12-08 05:15] LABS: BAND PERCENT MAN 4 % (0-8); BASOPHILS PERCENT MAN 0 % (0-2); EOSINOPHILS PERCENT MAN 0 % (0-6); LYMPHOCYTES ABSOLUTE MAN 4.18 K/mm3 (0.84-5.20); LYMPHOCYTES PERCENT MAN 12 % (21-46); MONOCYTES ABSOLUTE MAN 2.09 K/mm3 (0.16-1.47); MONOCYTES PERCENT MAN 6 % (4-13); MYELOCYTE ABSOLUTE MAN 1.04 K/mm3 (0.00-0.00); MYELOCYTE PERCENT MAN 3 % (0-0); NEUTROPHILS ABSOLUTE MAN 27.55 K/mm3 (1.96-9.15); SEG NEUTROPHILS PERCENT MAN 75 % (41-73); TOTAL CELLS COUNTED 100
--- NOTE | 2022-12-08 06:52 | NUR ---
SHIFT SUMMARY PT REMAINS A&O X4. VSS; ALTHOUGH SBP ELEVATED 160 - 170'S. PT DENIES CP OR PRESSURE. REPORTS MILD SOB W/EXERTION BUT IS ABLE TO MAINTAIN SPO2 AND RECOVER WELL. PT DENIES N/V, DIZZINESS OR LIGHTHEADNESS. PT DID NOT REST WELL THROUGHOUT SHIFT; UP AND DOWN TO EOB AND AMBULATING AROUND ROOM. PT STATES HE "CANT SLEEP", REPORTS PAIN IN "LEGS AND FEET". PAIN MEDICATION ADMINISTERED PER EMAR X1; W/LITTLE RELIEF. AFTER ADMINISTRATION, PT WAS ABLE TO REST FOR A FEW HOURS BUT THEN WAS AWAKE AGAIN. PT REPORTS 1 BM THIS SHIFT; DENIES BLOOD IN STOOL. REPORTS IT IS "YELLOW/BLONDE IN COLOR", UNFORMED/SOFT AND SMALL AMOUNT. PT VOIDING WELL. CBG 298 - 350. PT REPOSITIONING AND USE BATHROOM INDEPENDENTLY. NO ACUTE CHANGES THROUGHOUT SHIFT. WILL UPDATE ONCOMING RN
[2022-12-08] MEDS ORDERED: ALBU2.5V5 INH (11:02)
[2022-12-08] MEDS ORDERED: BENADRYL25 MG PO (11:03)
[2022-12-08] MEDS ORDERED: PANT40 PO (11:05)
[2022-12-08] MEDS ORDERED: HUMALOG KW100 UNIT/1 SC (11:09)
--- NOTE | 2022-12-08 11:53 | NUR ---
DISCHARGE HOME PT A&O X4. INDEPENDENT IN RM. VSS. SPO2 > 92% ON RA. DISCHARGE INSTRUCTIONS REVIEWED W/ PT & PT . PRINTED INSTRUCTIONS SENT HOME W/ PT. PIV REMOVED. PT TAKEN OUT BY PCT IN WHEELCHAIR W/ BELONGINGS @ APPROX 1150.
== END 2022-12-08 11:50 | disposition home or self-care (01) | DRG 813 ==
LOC: ER 11:56 → PCU 11:57
PROVIDERS: Family Medicine; Physician Assistant; ADMIT Hospitalist
PROC: 30233R1 Transfusion of Nonautologous Platelets into Peripheral Vein, Percutaneous Approach (ICD-10-PCS; principal; 2022-12-05)
PROC: 30233R1 Transfusion of Nonautologous Platelets into Peripheral Vein, Percutaneous Approach (ICD-10-PCS; 2022-12-06)
PROC: 30233R1 Transfusion of Nonautologous Platelets into Peripheral Vein, Percutaneous Approach (ICD-10-PCS; 2022-12-07)
DX: D69.3 Immune thrombocytopenic purpura (principal); D62 Acute posthemorrhagic anemia; K92.1 Melena; K21.9 Gastro-esophageal reflux disease without esophagitis; K44.9 Diaphragmatic hernia without obstruction or gangrene; I25.10 Atherosclerotic heart disease of native coronary artery without angina pectoris; I10 Essential (primary) hypertension; D50.9 Iron deficiency anemia, unspecified; E11.9 Type 2 diabetes mellitus without complications; J45.909 Unspecified asthma, uncomplicated; F41.9 Anxiety disorder, unspecified; Z86.14 Personal history of Methicillin resistant Staphylococcus aureus infection; L27.1 Localized skin eruption due to drugs and medicaments taken internally; T50.Z15A Adverse effect of immunoglobulin, initial encounter; Z86.010 Personal history of colon polyps; Z90.89 Acquired absence of other organs; Z98.890 Other specified postprocedural states; Z87.891 Personal history of nicotine dependence; Z79.84 Long term (current) use of oral hypoglycemic drugs; Z79.899 Other long term (current) drug therapy
CPT/HCPCS: 36415; 36430; 80048; 80053; 82947; 85014; 85018; 85025; 85610; 86850; 86900; 86901; 86923; 93005; 93010; 94640; 94760; 94762; 96374; 96375; 96376; 99285-25; A9270; C9113; G0378; J1815; J2930; J7500; P9016; P9035; P9053

== ENCOUNTER 2023-01-10 01:21 | Day surgery (SDC) | payer MEDICARE, OTHER ==
[2023-01-09 12:41] LABS: BASOPHILS ABSOLUTE AUTO 0.31 K/mm3 (0.00-0.23); BASOPHILS PERCENT AUTO 2 % (0-2); EOSINOPHILS ABSOLUTE AUTO 1.12 K/mm3 (0.00-0.68); EOSINOPHILS PERCENT AUTO 8 % (0-6); Hematocrit 26.1 % (37.0-53.0); Hemoglobin 7.7 g/dL (13.5-17.5); IMMATURE GRAN ABSOLUTE AUTO 0.07 K/mm3 (0.00-0.10); IMMATURE GRAN PERCENT AUTO 1 % (0-1); LYMPHOCYTES ABSOLUTE AUTO 2.57 K/mm3 (0.84-5.20); LYMPHOCYTES PERCENT AUTO 17 % (21-46); MONOCYTES ABSOLUTE AUTO 2.77 K/mm3 (0.16-1.47); MONOCYTES PERCENT AUTO 19 % (4-13); Mean Corpuscular HGB 24.5 pg (26.0-34.0); Mean Corpuscular HGB Conc 29.5 g/dL (31.5-36.5); Mean Corpuscular Volume 83 fL (80-100); NEUTROPHILS ABSOLUTE AUTO 8.07 K/mm3 (1.96-9.15); NEUTROPHILS PERCENT AUTO 54 % (41-73); NRBC ABSOLUTE 0.19 K/mm3 (0.00-0.02); NRBC Auto 1.3 /100 WBC (0.0-0.2); RDW Coefficient Variation 24.7 % (11.7-14.2); RDW Standard Deviation 74.3 fL (35.1-46.3); Red Blood Cell Count 3.14 M/mm3 (4.30-5.90); White Blood Cell Count 14.91 K/mm3 (4.00-11.30)
[2023-01-09 12:53] LABS: Platelet Count 1 K/mm3 (150-400)
[~2023-01-10 01:21] MED LIST changes: +ALBU2.5V5 INH; +PANT40 PO
[2023-01-10 14:31] VITALS: BP 154/80
[2023-01-10 14:50] VITALS: BP 135/85
[2023-01-10 15:51] VITALS: BP 137/79
== END 2023-01-10 15:51 | disposition home or self-care (01) ==
LOC: ATC 01:21 → EDSTATUS 14:30 → ATC 15:51
PROVIDERS: Internal Medicine Hematology & Oncology
DX: D69.3 Immune thrombocytopenic purpura (principal); D69.6 Thrombocytopenia, unspecified
CPT/HCPCS: 36430; 85025; 86900; 86901; J7050; P9035

== ENCOUNTER 2023-01-22 10:26 | Emergency (ER) | payer MEDICARE, OTHER ==
[~2023-01-22] VITALS: Ht 172.7 cm; Wt 98.0 kg
[2023-01-22 12:05] LABS: BASOPHILS PERCENT AUTO 2 % (0-2); EOSINOPHILS ABSOLUTE AUTO 1.27 K/mm3 (0.00-0.68); EOSINOPHILS PERCENT AUTO 9 % (0-6); Hematocrit 31.2 % (37.0-53.0); Hemoglobin 9.3 g/dL (13.5-17.5); IMMATURE GRAN ABSOLUTE AUTO 0.06 K/mm3 (0.00-0.10); IMMATURE GRAN PERCENT AUTO 0 % (0-1); LYMPHOCYTES ABSOLUTE AUTO 1.97 K/mm3 (0.84-5.20); LYMPHOCYTES PERCENT AUTO 15 % (21-46); MONOCYTES ABSOLUTE AUTO 1.08 K/mm3 (0.16-1.47); MONOCYTES PERCENT AUTO 8 % (4-13); Mean Corpuscular HGB 24.2 pg (26.0-34.0); Mean Corpuscular HGB Conc 29.8 g/dL (31.5-36.5); Mean Corpuscular Volume 81 fL (80-100); NEUTROPHILS ABSOLUTE AUTO 8.92 K/mm3 (1.96-9.15); NEUTROPHILS PERCENT AUTO 66 % (41-73); NRBC ABSOLUTE 1.04 K/mm3 (0.00-0.02); NRBC Auto 7.7 /100 WBC (0.0-0.2); RDW Coefficient Variation 25.5 % (11.7-14.2); RDW Standard Deviation 73.5 fL (35.1-46.3); Red Blood Cell Count 3.85 M/mm3 (4.30-5.90)
[2023-01-22 12:20] LABS: Albumin, Blood 3.7 g/dL (3.4-5.0); Albumin/Globulin Ratio 0.9 (0.8-1.8); Bilirubin, Total 0.5 mg/dL (0.1-1.0); Calcium, Blood 9.3 mg/dL (8.5-10.1); Creatinine, Blood 1.32 mg/dL (0.60-1.20); Magnesium, Blood 2.2 mg/dL (1.6-2.4); Potassium, Blood 4.7 mmol/L (3.5-5.5); Total Protein, Blood 7.7 g/dL (6.4-8.2)
[2023-01-22 12:22] LABS: International Normalized Ratio 0.98; Prothrombin Time Results 10.3 Sec (9.7-11.5)
[2023-01-22 12:35] LABS: Platelet Count 6 K/mm3 (150-400)
[2023-01-22] MEDS ORDERED: FUROSEMIDE20 MG PO (14:31)
[2023-01-22] MEDS ORDERED: REGLAN1013 PO (14:32)
[2023-01-22] MEDS ORDERED: FAMO20 PO (14:32)
[2023-01-22] MEDS ORDERED: Colace100 MG PO (14:33)
[2023-01-22 16:30] VITALS: BP 135/76
== END 2023-01-22 17:10 | disposition home or self-care (01) ==
LOC: ER 10:26
PROVIDERS: Physician Assistant
DX: K92.2 Gastrointestinal hemorrhage, unspecified (principal); D69.59 Other secondary thrombocytopenia; E11.9 Type 2 diabetes mellitus without complications; I25.10 Atherosclerotic heart disease of native coronary artery without angina pectoris; I10 Essential (primary) hypertension; Z79.84 Long term (current) use of oral hypoglycemic drugs; Z79.4 Long term (current) use of insulin; Z79.899 Other long term (current) drug therapy; Z87.891 Personal history of nicotine dependence
CPT/HCPCS: 80053; 83735; 85025; 85610; 85730; 86900; 86901; J7030; P9035

== ENCOUNTER 2023-03-01 11:21 | Day surgery (SDC) | payer MEDICARE, OTHER ==
[~2023-03-01 11:21] MED LIST changes: +Colace100 MG PO; +FURO40 PO; +Hydroxyzine HCl50 MG PO; +REGLAN1013 PO
[2023-03-01 13:09] VITALS: BP 133/83
--- NOTE | 2023-03-01 13:11 | NUR ---
FAINT INSPIRATORY WHEEZES TO BILAT BASES.
[2023-03-01 13:28] VITALS: BP 139/87
[2023-03-01 14:20] VITALS: BP 135/72
== END 2023-03-01 14:22 | disposition home or self-care (01) ==
LOC: ATC 11:21
DX: D69.3 Immune thrombocytopenic purpura (principal); D46.A Refractory cytopenia with multilineage dysplasia; I10 Essential (primary) hypertension; K21.9 Gastro-esophageal reflux disease without esophagitis; E11.9 Type 2 diabetes mellitus without complications; F17.210 Nicotine dependence, cigarettes, uncomplicated; Z79.4 Long term (current) use of insulin; Z79.899 Other long term (current) drug therapy
CPT/HCPCS: 36430; 86900; 86901; J7050; P9035

== ENCOUNTER 2023-03-15 09:42 | Day surgery (SDC) | payer MEDICARE, OTHER ==
[2023-03-14 11:29] LABS: BASOPHILS PERCENT AUTO 7 % (0-2); EOSINOPHILS ABSOLUTE AUTO 0.56 K/mm3 (0.00-0.68); EOSINOPHILS PERCENT AUTO 5 % (0-6); Hematocrit 43.9 % (37.0-53.0); Hemoglobin 12.8 g/dL (13.5-17.5); IMMATURE GRAN ABSOLUTE AUTO 0.03 K/mm3 (0.00-0.10); IMMATURE GRAN PERCENT AUTO 0 % (0-1); LYMPHOCYTES ABSOLUTE AUTO 1.95 K/mm3 (0.84-5.20); LYMPHOCYTES PERCENT AUTO 18 % (21-46); MONOCYTES ABSOLUTE AUTO 0.86 K/mm3 (0.16-1.47); MONOCYTES PERCENT AUTO 8 % (4-13); Mean Corpuscular HGB 23.7 pg (26.0-34.0); Mean Corpuscular HGB Conc 29.2 g/dL (31.5-36.5); Mean Corpuscular Volume 81 fL (80-100); NEUTROPHILS ABSOLUTE AUTO 6.54 K/mm3 (1.96-9.15); NEUTROPHILS PERCENT AUTO 61 % (41-73); NRBC ABSOLUTE 0.05 K/mm3 (0.00-0.02); NRBC Auto 0.5 /100 WBC (0.0-0.2); RDW Coefficient Variation 33.5 % (11.7-14.2); RDW Standard Deviation 100.3 fL (35.1-46.3); Red Blood Cell Count 5.41 M/mm3 (4.30-5.90); White Blood Cell Count 10.64 K/mm3 (4.00-11.30)
[2023-03-14 11:31] LABS: Platelet Count 2 K/mm3 (150-400)
[2023-03-15 13:25] VITALS: BP 169/74
[2023-03-15 13:48] VITALS: BP 131/80
[2023-03-15 14:49] VITALS: BP 136/77
[2023-03-15 15:10] VITALS: BP 131/78
[2023-03-15 16:05] VITALS: BP 146/80
== END 2023-03-15 16:05 | disposition home or self-care (01) ==
LOC: ATC 09:42 → EDSTATUS 09:43 → ATC 16:05
PROVIDERS: Internal Medicine Hematology & Oncology
DX: D69.3 Immune thrombocytopenic purpura (principal); D46.A Refractory cytopenia with multilineage dysplasia; D69.6 Thrombocytopenia, unspecified; I10 Essential (primary) hypertension; K21.9 Gastro-esophageal reflux disease without esophagitis; E11.9 Type 2 diabetes mellitus without complications; F17.210 Nicotine dependence, cigarettes, uncomplicated; Z79.899 Other long term (current) drug therapy
CPT/HCPCS: 36415; 36430; 85025; 86900; 86901; J7050; P9035

== ENCOUNTER 2023-05-23 01:57 | Day surgery (SDC) | payer MEDICARE, OTHER ==
[2023-05-23 09:10] VITALS: BP 156/89
[2023-05-23 09:46] VITALS: BP 136/84
[2023-05-23 10:09] VITALS: BP 138/75
== END 2023-05-23 10:12 | disposition home or self-care (01) ==
LOC: ATC 01:57 → LAB 01:57 → ATC 08:30
DX: D69.6 Thrombocytopenia, unspecified (principal); I10 Essential (primary) hypertension; K21.9 Gastro-esophageal reflux disease without esophagitis; F17.210 Nicotine dependence, cigarettes, uncomplicated; Z79.899 Other long term (current) drug therapy
CPT/HCPCS: 36430; 86900; 86901; J7050; P9035

== ENCOUNTER 2025-07-09 09:54 | Day surgery (SDC) | payer MEDICARE, OTHER ==
[2025-07-09] MEDS ORDERED: NS 250 ML IV SCH (11:35)
[2025-07-09 13:19] VITALS: BP 166/82
[2025-07-09 13:42] VITALS: BP 160/81
[2025-07-09 14:06] VITALS: BP 162/82
== END 2025-07-09 14:08 | disposition home or self-care (01) ==
LOC: ATC 09:54
DX: D69.3 Immune thrombocytopenic purpura (principal); I10 Essential (primary) hypertension; E11.9 Type 2 diabetes mellitus without complications; K21.9 Gastro-esophageal reflux disease without esophagitis; Z79.899 Other long term (current) drug therapy; Z79.4 Long term (current) use of insulin
CPT/HCPCS: 36415; 36430; 86900; 86901; J7050; P9035

== ENCOUNTER 2025-08-01 17:59 | Emergency (ER) | payer MEDICARE, OTHER ==
[~2025-08-01] VITALS: Ht 175.3 cm; Wt 99.8 kg
[2025-08-01 18:36] VITALS: BP 205/106
[2025-08-01 18:59] LABS: pH Blood Venous 7.35 (7.34-7.37)
[2025-08-01 19:14] LABS: BASOPHILS ABSOLUTE AUTO 0.24 K/mm3 (0.00-0.23); BASOPHILS PERCENT AUTO 3 % (0-2); EOSINOPHILS ABSOLUTE AUTO 0.12 K/mm3 (0.00-0.68); EOSINOPHILS PERCENT AUTO 1 % (0-6); Hematocrit 46.6 % (37.0-53.0); Hemoglobin 15.3 g/dL (13.5-17.5); IMMATURE GRAN ABSOLUTE AUTO 0.11 K/mm3 (0.00-0.10); IMMATURE GRAN PERCENT AUTO 1 % (0-1); LYMPHOCYTES ABSOLUTE AUTO 2.08 K/mm3 (0.84-5.20); LYMPHOCYTES PERCENT AUTO 25 % (21-46); MONOCYTES ABSOLUTE AUTO 1.03 K/mm3 (0.16-1.47); MONOCYTES PERCENT AUTO 12 % (4-13); Mean Corpuscular HGB Conc 32.8 g/dL (31.5-36.5); Mean Corpuscular Volume 92 fL (80-100); NEUTROPHILS ABSOLUTE AUTO 4.79 K/mm3 (1.96-9.15); NEUTROPHILS PERCENT AUTO 57 % (41-73); NRBC ABSOLUTE 0.19 K/mm3 (0.00-0.02); NRBC Auto 2.3 /100 WBC (0.0-0.2); Platelet Count 85 K/mm3 (150-400); RDW Coefficient Variation 20.8 % (11.7-14.2); RDW Standard Deviation 68.2 fL (35.1-46.3)
[2025-08-01 19:23] LABS: Alanine Aminotransfer (ALT/SGP 45.0 U/L (12-78); Albumin, Blood 3.4 g/dL (3.4-5.0); Albumin/Globulin Ratio 0.9 (0.8-1.8); Anion Gap 7.0 mmol/L (3-11); Aspartate Aminotrans (AST/SGOT 26.0 U/L (12-37); Bilirubin, Total 0.3 mg/dL (0.1-1.0); Blood Urea Nitrogen 19.0 mg/dL (8-24); CO2, Blood 27.0 mmol/L (21-32); Calcium, Blood 9.1 mg/dL (8.5-10.1); Chloride, Blood 105.0 mmol/L (98-108); Creatinine, Blood 1.53 mg/dL (0.60-1.20); Globulin, Blood 3.7 g/dL (2.2-4.0); Glucose, Blood 256.0 mg/dL (70-99); Potassium, Blood 4.4 mmol/L (3.5-5.5); Sodium, Blood 135.0 mmol/L (136-145); Total Protein, Blood 7.1 g/dL (6.4-8.2)
[2025-08-01 19:53] LABS: Osmolality, Serum 303.0 mos/KG (275-300)
[2025-08-01] MEDS ORDERED: NS 1,000 ML IV SCH (20:35)
== END 2025-08-01 22:30 | disposition home or self-care (01) ==
LOC: ER 17:59
PROVIDERS: Student in an Organized Health Care Education/Training Program
DX: E11.65 Type 2 diabetes mellitus with hyperglycemia (principal); T38.3X6A Underdosing of insulin and oral hypoglycemic [antidiabetic] drugs, initial encounter; I25.2 Old myocardial infarction; Z91.138 Patient's unintentional underdosing of medication regimen for other reason; Z87.891 Personal history of nicotine dependence; Z79.4 Long term (current) use of insulin; Z79.84 Long term (current) use of oral hypoglycemic drugs; Z79.899 Other long term (current) drug therapy
CPT/HCPCS: 80053; 82803; 82947; 83690; 83930; 85025; 99283; J7030